=== PATIENT | male | born 1945 | race Caucasian/White ===

== ENCOUNTER 2024-12-17 09:20 | Emergency (ER) | payer OTHER, SELFPAY ==
--- NOTE | ~2024-12-17 | XR_ITS ---
CLINICAL HISTORY: falls, weakness Two views of the chest. COMPARISON: None FINDINGS: Normal heart and mediastinal contours. No consolidation. No pleural effusion or pneumothorax. Flowing marginal osteophytes present along the mid to lower thoracic spine. No fracture identified. IMPRESSION: 1. No acute cardiopulmonary abnormality. This document has been electronically signed by: Howard Mcdonald MD on 12/17/2024 17:25:54
--- NOTE | ~2024-12-17 | CT_ITS ---
CLINICAL HISTORY: fall, pain CT head without contrast. COMPARISON: None FINDINGS: The visualized paranasal sinuses are clear. The mastoid air cells are clear. No calvarial fracture. No calvarial fracture. Atherosclerotic intracranial vasculature. No evidence for mass or mass effect. No intracranial hemorrhage or abnormal extra-axial fluid collection. No CT evidence of acute infarct. The ventricles are proportional with the degree of moderate global cerebral volume loss without evidence of hydrocephalus. Basilar cisterns are patent. Posterior fossa appears unremarkable. IMPRESSION: 1. No acute intracranial findings. This document has been electronically signed by: Howard Mcdonald MD on 12/17/2024 17:15:41
--- NOTE | ~2024-12-17 | CT_ITS ---
CLINICAL HISTORY: fall, pain CT cervical spine without contrast. COMPARISON: None FINDINGS: Normal vertebral body alignment. Vertebral body heights are maintained. Skull base and intracranial structures appear normal. Surgical clips present along the thyroid bed. C2-C3: Fusion of the posterior elements. No significant neural foraminal narrowing. C3-C4: Anterior marginal osteophytes. Loss of disc space height. Posterior disc osteophyte complex. Uncovertebral joint hypertrophy. Mild left and npcflfwt-nk-oclmax right neural foraminal narrowing. C4-C5: Anterior marginal osteophytes. Loss of disc space height. Posterior disc osteophyte complex. Uncovertebral joint hypertrophy. Wqsbiudn-gn-uptnbo bilateral neural foraminal narrowing. C5-C6: Anterior marginal osteophytes. Loss of disc space height. Posterior disc osteophyte complex. Uncovertebral joint hypertrophy. Tpjkykbo-nz-vtpcqw left and moderate right neural foraminal narrowing. C6-C7: Anterior marginal osteophytes. Loss of disc space height. Posterior disc osteophyte complex. Uncovertebral joint hypertrophy. Severe left and mild right neural foraminal narrowing. IMPRESSION: 1. No evidence of acute injury to the cervical spine. 2. Advanced multilevel cervical spondylosis. This document has been electronically signed by: Howard Mcdonald MD on 12/17/2024 17:21:04
[2024-12-17 10:26] VITALS: BP 114/65; PULSE 88; RESP 16; TEMP 36.9; O2SAT 98; BMI 28.9
--- NOTE | 2024-12-17 10:32 | ECG_ITS ---
Test Reason : FALL Blood Pressure : */* mmHG Vent. Rate : 77 BPM Atrial Rate : 77 BPM P-R Int : 160 ms QRS Dur : 90 ms QT Int : 396 ms P-R-T Axes : 47 48 36 degrees QTcB Int : 448 ms Normal sinus rhythm Normal ECG When compared with ECG of 29-Aug-2011 18:32, No significant changes seen Referred By: Generic ED Physician Electronically Signed By: JENN BROOKS
[2024-12-17 11:06] LABS: MANUAL DIFF FLAG NO
[2024-12-17 11:07] LABS: Basophils Absolute Auto 0.1 X10*3/uL (0.0-0.2); Eosinophils Absolute Auto 0.1 X10*3/uL (0.0-0.4); Eosinophils Percent Auto 1.1 % (0-4); Hematocrit 42.7 % (42.0-52.0); Hemoglobin 14.3 g/dl (14.0-18.0); Imm Gran Abs Auto 0.03 X10*3/uL (0.00-0.03); Imm Gran Pct Auto 0.4 % (0.0-0.4); Lymphocytes Absolute Auto 1.5 X10*3/uL (1.2-4.9); Lymphocytes Percent Auto 18.6 % (20-40); Mean Corpuscular HGB Conc 33.5 g/dl (31.0-36.0); Mean Corpuscular Hemoglobin 30.4 pg (27.0-33.0); Mean Corpuscular Volume 90.7 fL (80.0-98.0); Monocytes Percent Auto 12.5 % (2-11); Neutrophils Absolute Auto 5.3 x10*3/uL (2.0-8.3); Neutrophils Percent Auto 66.4 % (45-73); Platelet Count 178 X10*3/uL (160-400); Red Blood Count 4.71 X10*6/uL (4.60-5.80); Red Cell Distribution Width 12.8 % (11.0-16.0); White Blood Count 7.9 X10*3/uL (4.8-10.8)
[2024-12-17 11:22] LABS: Alanine Aminotransferase 10 U/L (0-40); Alkaline Phosphatase 141 U/L (39-117); Anion Gap 12 (12-20); Aspartate Amino Transferase 18 U/L (5-37); Bilirubin Total 0.3 mg/dL (0.0-1.0); Blood Urea Nitrogen 15 mg/dL (9-16); Calcium 8.6 mg/dL (8.4-10.2); Carbon Dioxide 27 mmol/L (22-29); Chloride 106 mmol/L (96-108); Creatinine Clr Calc Pharmacy 76.9; Estimated Glomerular Filt Rate > 60; Glucose Random 97 mg/dL (60-115); Sodium 141 mmol/L (135-145); Total Protein 7.7 g/dL (6.5-8.0)
[2024-12-17 15:48] VITALS: BP 130/75; PULSE 88; RESP 16; TEMP 36.7; O2SAT 98
--- NOTE | 2024-12-17 16:13 | ED_ITS ---
HPI - General Adult General Chief complaint: Fall Stated complaint: falling Time Seen by Provider: 12/17/24 16:12 Source: patient and family (patient's ) Mode of arrival: ambulatory Limitations: no limitations History of Present Illness ED Provider: May Mckay PA-C HPI narrative: Patient is an 79 year old assigned male at with a history of dementia presenting to the emergency department today with continued weakness. Patient states that he has been somewhat more weak and has had 2 falls in the last 3 weeks. Patient's states 1 fall involved the stairs and the other was him sliding down his recliner. Patient denies any dizziness, lightheadedness, abdominal pain, nausea, vomiting, fever, chills, blurry vision, double vision, loss of vision, chest pain, difficulty breathing, shortness of breath, back pain, night sweats, pain with urination, increased urinary frequency, increased urinary urgency, blood in his urine or stool, syncope or a near syncopal episode, bowel incontinence, bladder incontinence, or any other complaints at this time. Onset (ago): week(s) (3) Relieving factors: none Exacerbating factors: none Associated symptoms: weakness Treatments prior to arrival: none Related Data Allergies Allergy/AdvReac Type Severity Reaction Status Date / Time nut - unspecified [nut] Allergy Intermediate HIVES Verified 12/17/24 10:28 onion [Onion] Allergy Unknown UNKNOWN Verified 12/17/24 10:28 Review of Systems 2 Constitutional: Constitutional: Reports no additional constitutional complaints, Denies chills, Denies fever(s), Denies night sweats and Reports weakness Eyes: Eyes: Reports no additional eye complaints, Denies blurry vision, Denies change in vision, Denies diplopia, Denies eye discharge, Denies loss of vision and Denies eye pain ENT: Denies dizziness Cardiovascular: Cardiovascular: Reports no additional cardiovascular complaints, Denies chest pain, Denies lightheadedness, Denies Loss of Consciousness and Denies dyspnea Respiratory: Respiratory: Reports no additional respiratory complaints and Denies dyspnea Gastrointestinal: Gastrointestinal: Reports no additional gastrointestinal complaints, Denies abdominal pain, Denies melena, Denies hematochezia, Denies change in bowel habits and Denies change in stool character Genitourinary: Genitourinary: Reports no additional male genitourinary complaints, Denies hematuria, Denies oliguria, Denies difficulty urinating, Denies dysuria, Denies urinary frequency, Denies urinary hesitancy, Denies urinary incontinence and Denies urinary urgency Musculoskeletal: Musculoskeletal: Reports no additional musculoskeletal complaints, Denies numbness and Denies tingling Neurologic: Denies dizziness, Denies loss of vision, Denies numbness, Denies tingling and Reports weakness Psychiatric: Psychiatric: Reports no additional psychiatric complaints Endocrine: Endocrine: Reports no additional endocrine complaints Hematologic/Lymphatic: Hematologic/Lymphatic: Reports no additional hematologic/lymphatic complaints Allergic/Immunologic: Allergic/Immunologic: Reports no additional allergic/immunologic complaints [facility] Past Medical History Attestation statement: The following information was validated with the patient. (all information validated with the patient's ) Source: old records reviewed, obtained from family (patient's provided additional history and confirmed the history provided by the patient.) and nursing notes reviewed Social History Social History Advance Directives: Yes Advance Directives Information Provided: Yes Advance Directives on File: No Physical Exam ED Vital Signs: Vital Signs - 24 hr 12/17/24 10:26 12/17/24 15:48 Temperature 98.5 F 98.1 F Pulse Rate 88 88 Respiratory Rate 16 16 Blood Pressure 114/65 130/75 Pulse Oximetry 98 98 Oxygen Delivery Method Room Air Room Air BMI result Body Mass Index 28.9 Const General: cooperative, no acute distress, alert and awake Nutritional Appearance: well nourished Orientation/consciousness: patient oriented x3 Limitations: no limitations [facility] Head: Yes normal to inspection and Yes atraumatic Ears: hearing grossly normal bilaterally and external ears normal General nose exam: Normal external nose present, no nasal discharge noted and no epistaxis Face and sinus: Yes normal facial exam, No abrasion and No laceration Mouth: Normal oral and palatal mucosa present, no drooling and no muffled voice Eyes General: appearance normal, both eyes and all related structures Periorbital: periorbital findings normal Eyelids: Yes eyelids normal Conjunctivae: conjunctivae normal Pupils: Equal, round and reactive pupils present EOM: EOMs intact bilaterally Neck Neck: Yes normal visual inspection, Yes full ROM and Yes no lymphadenopathy Chest Chest palpation & inspection: normal inspection of the chest Resp Effort & Inspection: normal respiratory effort and able to speak in complete sentences GI Inspection: Yes normal to inspection Neuro General: patient oriented x3, moves all extremities and CN's II-XI intact bilaterally Cranial nerves: Yes Equal, round and reactive pupils present Cognition (Neuro): normal cognition Extrem General: Yes normal to inspection, Yes full ROM and Yes capillary refill normal Psych Appearance: grossly normal Mental Status: mental status grossly normal Affect: normal affect Attitude: cooperative Thought process: Normal thought process present Thought content: Normal thought content present Insight: Good insight present (Psych) Medical Decision Making Medical Decision Making MDM Narrative: Patient is an 79 year old assigned male at with a history of dementia presenting to the emergency department today with continued weakness. Patient's physical exam was unremarkable. Patient's blood work was unremarkable. Patient's urine showed no acute process. Patient's EKG was unremarkable. Patient's chest x-ray, head CT, and c-spine CT showed no acute process. I explained my physical exam findings as well as all test results to the patient and the patient's . I answered all questions asked by the patient and the patient's . Patient and his stated that they would like to go home and do not want a physical therapy or case management evaluations at this time. I stressed the importance of the patient taking his medication as directed (either prescribed or as the over the counter packaging recommends). I stressed the importance of the patient following up with his primary care provider. I stressed the importance of the patient returning to the emergency department immediately if his symptoms were to worsen or if he were to develop any dizziness, shortness of breath, difficulty breathing, chest pain, blurry vision, loss of vision, nausea, vomiting, abdominal pain, fever, chills, back pain, or any other complaints. Patient and the patient's verbalized agreement and understanding with this treatment plan and discharge. Differential Diagnosis Differential Diagnoses: The differential diagnosis associated with the presentation includes Weakness Deconditioning Admission/Observation Consideration of admission/observation: Escalation of care including admission/observation considered Patient would have been admitted to the hospital had his work up had any findings where hospital admission was appropriate and his clinical presentation warranted hospital admission. Lab Data [facility] Lab Attestation statement: I reviewed the patient's lab results. My interpretation of these results are in the [facility] Rationale portion of this note. 12/17/24 11:00 12/17/24 11:00 Labs: Lab Results 12/17/24 12/17/24 Range/Units 11:00 16:21 WBC 7.9 (4.8-10.8) X10*3/uL RBC 4.71 (4.60-5.80) X10*6/uL Hgb 14.3 (14.0-18.0) g/dl Hct 42.7 (42.0-52.0) % MCV 90.7 (80.0-98.0) fL MCH 30.4 (27.0-33.0) pg MCHC 33.5 (31.0-36.0) g/dl RDW 12.8 (11.0-16.0) % Plt Count 178 (160-400) X10*3/uL MPV 9.0 L (9.4-12.4) fL Immature Gran % (Auto) 0.4 (0.0-0.4) % Neut % (Auto) 66.4 (45-73) % Lymph % (Auto) 18.6 L (20-40) % [place] % (Auto) 12.5 H (2-11) % Eos % (Auto) 1.1 (0-4) % Baso % (Auto) 1.0 (0-2) % Lymph # (Auto) 1.5 (1.2-4.9) X10*3/uL [place] # (Auto) 1.0 (0.1-1.2) X10*3/uL Eos # (Auto) 0.1 (0.0-0.4) X10*3/uL Baso # (Auto) 0.1 (0.0-0.2) X10*3/uL Abs Immat Gran (auto) 0.03 (0.00-0.03) X10*3/uL Absolute Neuts (auto) 5.3 (2.0-8.3) x10*3/uL Absolute Nucleated RBC 0.000 (0.0-0.012) X10*3/uL Nucleated RBC % (auto) 0.0 (0.0-0.2) /100WBC Sodium 141 (135-145) mmol/L Potassium 4.0 (3.3-5.1) mmol/L Chloride 106 (96-108) mmol/L Carbon Dioxide 27 (22-29) mmol/L Anion Gap 12 (12-20) BUN 15 (9-16) mg/dL Creatinine 0.87 (0.5-1.4) mg/dL Estim Creat Clear Calc 76.9 Estimated GFR > 60 Random Glucose 97 (60-115) mg/dL Calcium 8.6 (8.4-10.2) mg/dL Total Bilirubin 0.3 (0.0-1.0) mg/dL AST 18 (5-37) U/L ALT 10 (0-40) U/L Alkaline Phosphatase 141 H (39-117) U/L Total Protein 7.7 (6.5-8.0) g/dL Albumin 4.0 (3.5-5.0) g/dL Urine Color Yellow Urine Appearance Clear Urine pH 6.0 (5.0-9.0) Ur Specific [place] 1.010 (1.005-1.025) Urine Protein Negative (Neg-Trace) mg/dL Urine Glucose (UA) Negative (Negative) mg/dL Urine Ketones Negative (Negative) mg/dL Urine Blood Negative (Negative) Urine Nitrite Negative (Negative) Ur Leukocyte Esterase Negative (Negative) Independent Interpretation I performed an independent interpretation of an: EKG, Plain X-Ray and CT Scan Interpretation: My interpretation is in agreement with the radiologist's impression of these imaging studies. L CLINICAL HISTORY: falls, weakness Two views of the chest. COMPARISON: None FINDINGS: Normal heart and mediastinal contours. No consolidation. No pleural effusion or pneumothorax. Flowing marginal osteophytes present along the mid to lower thoracic spine. No fracture identified. IMPRESSION: 1. No acute cardiopulmonary abnormality. This document has been electronically signed by: Howard Mcdonald MD on 12/17/2024 17:25:54 Dictated By: Howard Mcdonald MD Signed By: Electronically signed by Howard Mcdonald MD 12/17/24 1727 Report Number: [id number]: Total DLP = 1214.00 mGy-cm CLINICAL HISTORY: fall, pain CT cervical spine without contrast. COMPARISON: None FINDINGS: Normal vertebral body alignment. Vertebral body heights are maintained. Skull base and intracranial structures appear normal. Surgical clips present along the thyroid bed. C2-C3: Fusion of the posterior elements. No significant neural foraminal narrowing. C3-C4: Anterior marginal osteophytes. Loss of disc space height. Posterior disc osteophyte complex. Uncovertebral joint hypertrophy. Mild left and sxghusek-le-tvdhwu right neural foraminal narrowing. C4-C5: Anterior marginal osteophytes. Loss of disc space height. Posterior disc osteophyte complex. Uncovertebral joint hypertrophy. Bdiykvju-jk-vcowqq bilateral neural foraminal narrowing. C5-C6: Anterior marginal osteophytes. Loss of disc space height. Posterior disc osteophyte complex. Uncovertebral joint hypertrophy. Copkzjmo-nt-oronsq left and moderate right neural foraminal narrowing. C6-C7: Anterior marginal osteophytes. Loss of disc space height. Posterior disc osteophyte complex. Uncovertebral joint hypertrophy. Severe left and mild right neural foraminal narrowing. IMPRESSION: 1. No evidence of acute injury to the cervical spine. 2. Advanced multilevel cervical spondylosis. This document has been electronically signed by: Howard Mcdonald MD on 12/17/2024 17:21:04 Dictated By: Howard Mcdonald MD Signed By: Electronically signed by Howard Mcdonald MD 12/17/24 1721 Report Number: [id number]: Total DLP = 0.00 mGy-cm CLINICAL HISTORY: fall, pain CT head without contrast. COMPARISON: None FINDINGS: The visualized paranasal sinuses are clear. The mastoid air cells are clear. No calvarial fracture. No calvarial fracture. Atherosclerotic intracranial vasculature. No evidence for mass or mass effect. No intracranial hemorrhage or abnormal extra-axial fluid collection. No CT evidence of acute infarct. The ventricles are proportional with the degree of moderate global cerebral volume loss without evidence of hydrocephalus. Basilar cisterns are patent. Posterior fossa appears unremarkable. IMPRESSION: 1. No acute intracranial findings. This document has been electronically signed by: Howard Mcdonald MD on 12/17/2024 17:15:41 Dictated By: Howard Mcdonald MD Signed By: Electronically signed by Howard Mcdonald MD 12/17/24 1716 Vent. Rate: 77 BPM Atrial Rate: 77 BPM P-R Int: 160 ms QRS Dur: 90 ms QT Int: 396 ms P-R-T Axes: 47 48 36 degrees QTcB Int: 448 ms Normal sinus rhythm Normal ECG When compared with ECG of 29-Aug-2011 18:32, No significant changes seen Electronically Signed By: MERRICK BROOKS Dictated By: Merrick Brooks MD Signed By: Electronically signed by Merrick Brooks MD 12/17/24 1227 Radiology Impression Discussion of test interpretation with radiology: I have reviewed the radiologist's reading. Independent Historian Clinical information obtained from an independent historian. History obtained from or confirmed by: Spouse (patient's provided additional history and confirmed the history provided.) Discharge Plan Discharge Clinical Impression: Weakness Patient Disposition: Home, Self-Care Instructions: Weakness (ED) Additional Instructions: Follow up with your primary care provider. Return to the emergency department immediately if your symptoms worsen or if you develop any dizziness, shortness of breath, difficulty breathing, chest pain, blurry vision, loss of vision, nausea, vomiting, abdominal pain, fever, chills, back pain, or any other complaints. Referrals: Orin Best MD [Primary Care Provider] - Print Language: [place]
[2024-12-17 16:42] LABS: Appearance Urine Clear; Color Urine Yellow; Glucose Urine UA Negative (Negative); Leukocyte Esterase Urine Negative (Negative); Nitrite Urine Negative (Negative); Urine Blood Negative (Negative); Urine Ketones Negative (Negative); Urine Protein Negative (Neg-Trace)
[2024-12-17 18:23] VITALS: BP 130/75; PULSE 88; RESP 16; TEMP 36.7; O2SAT 98
--- OUTSIDE RECORDS SUMMARY | 2024-12-17 18:27 | XMS_ITS ---
Author Name [facility] [place] [facility] [place] Address [address] [place] [address] Care Team Providers Care Dip Unit Operator Name Role Phone NAOMI TRAN Primary Care Provider Unavailabl e Insurance Providers: All historical and current Section Date Range: From patient's date of to the date document was created. This section includes the names of all active insurance providers for the patient. Insurance Provider Type of Coverage Plan Name Start of Policy Coverage End of Policy Coverage Group Number Member ID Insurance Provider's Telephone Number Policy Conte's Name Patient's Relationship to Policy Conte [facility] ([facility]) MEDICARE ADVANTAGE [facility] ([facility]) Oct 24, 2014 [id number] PATIENT Selected Encounter This section includes the information on record at [place] for the Encounter. Date/Time Encounter Type Encounter Description Reason Provider Source Jan 27, 2024 08:00 AM SPEECH/HEARING THERAPY SPEECH-LANGUAGE PATHOLOGY ICD-10-CM F01.B0 Vascular dementia, moderate, without beh/psych/mood /anx MIKE HUERTA Elly Encounter Template Text not used by [place] Assessments - Encounter Diagnoses This section includes the primary and secondary diagnoses documented for the Encounter. Date/Time Primary/Secondary Diagnosis Diagnosis Name Provider Source Jan 27, 2024 09:01 AM PRIMARY Vascular dementia, moderate, without beh/psych/mood/ anx MIKE HUERTA [facility] Plan of Treatment: Future Appointments (+ 6 months) and Future Tests (+/- 45 days) The Plan of Treatment section includes future care activities for the patient from all [place] treatmentfaatrium healthities. This section includes future appointments and future orders which are active, pending or scheduled. Future Appointments This section includes appointments that were scheduled to occur 6 months from the date of the Encounter, up to a maximum of 20 appointments. The data comes from all [place] treatment facilities. Appointment Date/Time Appointment Type Appointme nt Facility Name Feb 06, 2024 08:00 AM [facility] Feb 13, 2024 08:00 [facility] [place] [facility] Feb 21, 2024 08:30 AM [facility] [place] [facility] Apr 23, 2024 01:00 PM AMBULATORY - MEDICINE [facility] Lab Results: +/- 30 days of the encounter This section includes the Chemistry and Hematology Lab Results on record with [place] for the patient. Radiology Reports and Pathology Reports are provided separately, in subsequent sections. Lab Results This section contains the Chemistry/Hematology Results that were resulted 30 days before or 30 daysafter the date of the Encounter. Date/Time Source Result Type Result - Unit Interpretation Reference Range Comment Jan 16, 2024 08:11 AM [facility] CALCIUM Specimen Type: SERUM No comment entered. Ordering Provider: NAOMI TRAN Report Released Date/Time: Jan 13, 2024 03:46 PM Reporting Lab: [facility] [address] [address] Performing Lab: [facility] [address] [address] CALCIUM 8.3 mg/dL L 8.5-10.2 Jan 16, 2024 08:11 AM [facility] URIC ACID Specimen Type: SERUM No comment entered. Ordering Provider: NAOMI TRAN Report Released Date/Time: Jan 13, 2024 03:46 PM Reporting Lab: [address] [address] Performing Lab: [address] [address] URIC ACID 5.7 mg/dL 3.5-7.2 Jan 16, 2024 08:11 AM [facility] HEMOGLOBIN A1C PANEL Specimen Type: BLOOD Comment: Values obtained from A1C measurements can vary. For atypical A1C assays, a reported value of 7.0 could actually be between 6.72 and 7.28 if measured by a reference method. A reported value of 9.0 could actually be between 8.73 and 9.27. Ref: http://www.ngs p.org/CAPdata. asp Ordering Provider: NAOMI TRAN Report Released Date/Time: Jan 13, 2024 03:46 PM Reporting Lab: [address] [address] Performing Lab: [address] [address] HEMOGLOBIN A1C 5.5 4.0-5.6 Jan 16, 2024 08:11 AM [facility] TSH Specimen Type: SERUM No comment entered. Ordering Provider: NAOMI TRAN Report Released Date/Time: Jan 13, 2024 03:46 PM Reporting Lab: [address] [address] Performing Lab: [address] [address] TSH 1.39 u[IU]/mL 0.35-5.00 Jan 16, 2024 08:11 AM [facility] URINALYSIS Specimen Type: URINE Comment: If Glucose = >500 and Ketones are positive, please alert the Physician. Ordering Provider: NAOMI TRAN Report Released Date/Time: Jan 13, 2024 03:46 PM Reporting Lab: [address] [address] Performing Lab: [address] [address] UA COLOR Light-Yellow Yellow UA APPEARANCE Clear Clear UA GLUCOSE NEGATIVE mg/dL Negative UA KETONES NEGATIVE mg/dL Negative UA BLOOD NEGATIVE mg/dL Negative UA PROTEIN NEGATIVE mg/dL Negative UA NITRITE NEGATIVE mg/dL Negative UA BILIRUBIN NEGATIVE mg/dL Negative UA SPECIFIC GRAVITY 1.022 1.016-1.022 UA pH 7.0 5.0-9.0 UA UROBILINOGEN <2.0 mg/dL <2.0 UA LEUKOCYTE NEGATIVE Negative Jan 16, 2024 08:11 AM [facility] FERRITIN Specimen Type: SERUM No comment entered. Ordering Provider: NAOMI TRAN Report Released Date/Time: Jan 13, 2024 03:46 PM Reporting Lab: [address] [address] Performing Lab: [address] [address] FERRITIN 30 ng/mL 20-300 Jan 16, 2024 08:11 AM [facility] VITAMIN D (25-OH) Specimen Type: SERUM No comment entered. Ordering Provider: NAOMI TRAN Report Released Date/Time: Jan 13, 2024 03:46 PM Reporting Lab: [address] [address] Performing Lab: [address] [address] VITAMIN D (25-OH) 20 ng/mL 20-50 Jan 16, 2024 08:11 AM [facility] CBC AND DIFF (AUTO) Specimen Type: BLOOD No comment entered. Ordering Provider: NAOMI TRAN Report Released Date/Time: Jan 13, 2024 03:46 PM Reporting Lab: [address] [address] Performing Lab: [address] [address] WBC 7.52 10*3/uL 4.50-11.00 RBC 4.68 10*6/uL 4.23-5.66 HGB 14.2 g/dL 12.8-17 HCT 43.0 39.2-50.4 MCV 91.9 fL 82-99 MCHC 33.0 g/dL 30.8-35.1 PLT 200 10*3/uL 140-360 RDW-CV 12.8 12.0-16.0 [place], Abs 0.93 10*3/uL 0.30-1.10 MCH 30.3 pg 26.2-32.6 Neut % 59.3 43.7-75.8 Lymph % 25.5 14.0-42.3 [place] % 12.4 5.1-13.7 Eos % 1.3 0.4-6.8 Baso % 1.2 0.1-2.0 Neut, Abs 4.46 10*3/uL 2.20-7.60 Lymph, Abs 1.92 10*3/uL 1.00-3.20 Eos, Abs 0.10 10*3/uL 0.03-0.44 Baso, Abs 0.09 10*3/uL 0.01-0.13 Immature Gran % 0.3 0.0-0.7 Immature Gran, Abs 0.02 10*3/uL 0.00-0.06 Jan 16, 2024 08:11 AM [facility] LIPID PANEL FASTING Specimen Type: SERUM No comment entered. Ordering Provider: NAOMI TRAN Report Released Date/Time: Jan 13, 2024 03:46 PM Reporting Lab: [address] [address] Performing Lab: [address] [address] CHOLESTEROL 184 mg/dL TRIGLYCERIDE 129 mg/dL 0-150 LDL calculated 104 mg/dL 0-129 CHOL/HDL 3.4 HDL CHOLESTEROL 54 mg/dL 40-60 Jan 16, 2024 08:11 AM [facility] BASIC METABOLIC PANEL (fasting) Specime n Type: SERUM No comment entered. Ordering Provider: NAOMI TRAN Report Released Date/Time: Jan 13, 2024 03:46 PM Reporting Lab: [address] [address] Performing Lab: [address] [address] UREA NITROGEN 15 mg/dL 7-25 GLUCOSE 95 mg/dL 65-100 SODIUM 139 mmol/L 135-145 POTASSIUM 4.1 mmol/L 3.5-5.0 CHLORIDE 103 mmol/L 100-110 CO2 27 meq/L 20-30 CREATININE, Serum 0.86 mg/dL 0.50-1.40 eGFR(CKD-EPI 2020) 88 mL/min >60 Jan 16, 2024 08:11 AM [facility] LIVER FUNCTION Specimen Type: SERUM No comment entered. Ordering Provider: NAOMI TRAN Report Released Date/Time: Jan 13, 2024 03:46 PM Reporting Lab: [facility] [address] [address] Performing Lab: [facility] [address] [address] PROTEIN,TOTAL 6.9 g/dL 6.0-8.3 ALBUMIN 3.7 g/dL 3.5-5.0 ALKALINE PHOSPHATASE 70 U/L 40-150 AST 12 U/L 5-34 ALT 11 U/L BILIRUBIN, TOTAL 0.5 mg/dL 0.2-1.2 Encounter Notes: All associated encounter notes This section contains the clinical notes associated to the Encounter. Date/Time Encounter Note(s) Provider Source Jan 27, 2024 08:24 AM SPEECH PATHOLOGY N OTE: LOCAL TITLE: SPEECH PATHOLOGY PROGRESS NOTE STANDARD TITLE: SPEECH PATHOLOGY NOTE DATE OF NOTE: JAN 27, 2024@08:24 ENTRY DATE: JAN 27, 2024@08:24:31 AUTHOR: MIKE HUERTA EXP COSIGNER: URGENCY: STATUS: COMPLETED S: Pt. is seen F2F today for a diagnostic speech/language therapy. Active problems - Computerized Problem List is the source for the followin. Vascular dementia without behavioral disturbance 2. Irritable bowel syndrome 3. Cataract 4. Screening for malignant neoplasm of colon done 5. New daily persistent headache 6. History of vaccination 7. Shoulder joint pain 8. Allergy 9. Chest pain 10. Concussion 11. Chronic ethmoidal sinusitis 12. PCP: Luli Mendoza [facility] 13. Hypertension (SNOMED CT [id number]) 14. Other and unspecified noninfectious gastroenteritis and colitis 15. Hypothyroidism 16. Personal History of Colonic Polyps Progress notes reviewed Neuropsych testing report was reviewed Encounter time - 60 minutes O: The following was addressed during this encounter: Test of Adolescent/Adult Word Finding, Second Edition (TAWF-2) which is a norm-referenced, single-word expressive language test expressly designed to assess the word-finding ability of adolescents and adults was continued. A: Bandera presents with cognitive communication deficits characterized by word finding challenges and short term recall difficulties. P: follow up 1x/week for 2 weeks /guevara/ MIKE HUERTA M.S.,[facility] MACHINE OPERATOR SPEECH-LANGUAGE PATHOLOGIST Signed: 01/30/2024 19:09 MIKE HUERTA [facility]
--- OUTSIDE RECORDS SUMMARY | 2024-12-17 18:27 | XMS_ITS | Encounter Summary ---
Author Name [facility] Organization [facility] Address [address] [place] [id number] Care Team Providers Care Electronic Train Control Technician Name Role Phone NAOMI TRAN Primary Care [...] Name Patient's Relationship to Policy [facility] ([facility]) MEDICARE ADVANTAGE [facility] ([facility]) Oct 24, 2014 [id number] PATIENT Selected Encounter This section includes the information on record at ID for the Encounter. Date/Time Encounter Type Encounter Description Reason Provider Source Jan 23, 2024 09:00 AM OFFICE O/P EST MOD 30 MIN PRIMARY CARE/MEDICINE ICD-10-CM F01.B0 Vascular dementia, moderate, without beh/psych/mood/ anx NAOMI TRAN Elly Encounter Template Text not used by ID Assessments - Encounter Diagnoses This section includes the primary and secondary diagnoses documented for the Encounter. Date/Time Primary/Secondary Diagnosis Diagnosis Name Provider Source Jan 23, 2024 09:15 AM PRIMARY Vascular dementia, moderate, without beh/psych/mood/anx NAOMI TRAN Jan 23, 2024 09:15 AM SECONDARY Essential (primary) hypertension NAOMI TRAN Jan 23, 2024 09:15 AM SECONDARY Hypothyroidism, unspecified NAOMI TRAN Plan of Treatment: Future Appointments (+ 6 months) and Future Tests (+/- 45 days) The Plan of Treatment section includes future care activities for the patient from all ID treatmentfacilities. This section includes future appointments and future orders which are active, pending or scheduled. Future Appointments This section includes appointments that were scheduled to occur 6 months from the date of the Encounter, up to a maximum of 20 appointments. The data comes from all ID treatment facilities. Appointment Date/Time Appointment Type Appointme nt Facility Name Jan 27, 2024 08:00 AM [facility] [place] [facility] Feb 06, 2024 08:00 AM [facility] [place] [facility] Feb 13, 2024 08:00 AM [facility] [place] [facility] Feb 21, 2024 08:30 AM AMBULATORY - REHAB MEDICIN E [facility] [place] [facility] Apr 23, 2024 01:00 PM AMBULATORY - MEDICINE [facility] Lab Results: +/- 30 days of the encounter This section includes the Chemistry and Hematology Lab Results on record with ID for the patient. Radiology Reports and Pathology Reports are provided separately, in subsequent sections. Lab Results This section contains the Chemistry/Hematology Results that were resulted 30 days before or 30 daysafter the date of the Encounter. Date/Time Source Result Type Result - Unit Interpretation Reference Range Comment Jan 16, 2024 08:11 AM [place] CALCIUM Specimen Type: SERUM No comment entered. Ordering Provider: NAOMI TRAN Report Released Date/Time: Jan 13, 2024 03:46 PM Reporting Lab: [facility] [address] [facility] [address] Performing Lab: [address] [address] CALCIUM 8.3 mg/dL L 8.5-10.2 Jan 16, 2024 08:11 AM [place] URIC ACID Specimen Type: SERUM No comment entered. Ordering Provider: NAOMI TRAN Report Released Date/Time: Jan 13, 2024 03:46 PM Reporting Lab: [address] [address] Performing Lab: [address] [address] URIC ACID 5.7 mg/dL 3.5-7.2 Jan 16, 2024 08:11 AM [place] HEMOGLOBIN A1C PANEL Specimen Type: BLOOD Comment: [...] Jan 13, 2024 03:46 PM Reporting Lab: [address] [address] Performing Lab: [address] [address] HEMOGLOBIN A1C 5.5 4.0-5.6 Jan 16, 2024 08:11 AM [place] URINALYSIS Specimen Type: URINE Comment: If Glucose = >500 and Ketones are positive, please alert the Physician. Ordering Provider: NAOMI TRAN Report Released Date/Time: Jan 13, 2024 03:46 PM Reporting Lab: [address] [address] Performing Lab: [address] [address] UA COLOR Light-Yellow Yellow UA APPEARANCE Clear Clear UA GLUCOSE NEGATIVE mg/dL Negative UA KETONES NEGATIVE mg/dL Negative UA BLOOD NEGATIVE mg/dL Negative UA PROTEIN NEGATIVE mg/dL Negative UA NITRITE NEGATIVE mg/dL Negative UA BILIRUBIN NEGATIVE mg/dL Negative UA SPECIFIC GRAVITY 1.022 1.016-1.022 UA pH 7.0 5.0-9.0 UA UROBILINOGEN <2.0 mg/dL <2.0 UA LEUKOCYTE NEGATIVE Negative Jan 16, 2024 08:11 AM [place] TSH Specimen Type: SERUM No comment entered. Ordering Provider: NAOMI TRAN Report Released Date/Time: Jan 13, 2024 03:46 PM Reporting [facility] [address] [address] Performing Lab: [address] [address] TSH 1.39 u[IU]/mL 0.35-5.00 Jan 16, 2024 08:11 AM [place] FERRITIN Specimen Type: SERUM No comment entered. Ordering Provider: NAOMI TRAN Report Released Date/Time: Jan 13, 2024 03:46 PM Reporting Lab: [address] [address] Performing Lab: [address] [address] FERRITIN 30 ng/mL 20-300 Jan 16, 2024 08:11 AM [place] CBC AND DIFF (AUTO) Specimen Type: BLOOD No comment entered. Ordering Provider: NAOMI TRAN Report Released Date/Time: Jan 13, 2024 03:46 PM Reporting Lab: [address] [address] Performing Lab: [address] [address] WBC 7.52 10*3/uL 4.50-11.00 RBC 4.68 10*6/uL 4.23-5.66 HGB 14.2 g/dL 12.8-17 HCT 43.0 39.2-50.4 MCV 91.9 fL 82-99 MCHC 33.0 g/dL 30.8-35.1 PLT 200 10*3/uL 140-360 RDW-CV 12.8 12.0-16.0 [place], Abs 0.93 10*3/uL 0.30-1.10 MCH 30.3 pg 26.2-32.6 Neut % 59.3 43.7-75.8 Lymph % 25.5 14.0-42.3 [place] % 12.4 5.1-13.7 Eos % 1.3 0.4-6.8 Baso % 1.2 0.1-2.0 Neut, Abs 4.46 10*3/uL 2.20-7.60 Lymph, Abs 1.92 10*3/uL 1.00-3.20 Eos, Abs 0.10 10*3/uL 0.03-0.44 Baso, Abs 0.09 10*3/uL 0.01-0.13 Immature Gran % 0.3 0.0-0.7 Immature Gran, Abs 0.02 10*3/uL 0.00-0.06 Jan 16, 2024 08:11 AM [place] VITAMIN D (25-OH) Specimen Type: SERUM No comment entered. Ordering Provider: NAOMI TRAN Report Released Date/Time: Jan 13, 2024 03:46 PM Reporting Lab: [address] [address] Performing Lab: [address] [address] VITAMIN D (25-OH) 20 ng/mL 20-50 Jan 16, 2024 08:11 AM [place] BASIC METABOLIC PANEL (fasting) Specime n Type: SERUM No comment entered. Ordering Provider: NAOMI TRAN Report Released Date/Time: Jan 13, 2024 03:46 PM Reporting Lab: [address] [address] Performing Lab: [address] [address] UREA NITROGEN 15 mg/dL 7-25 GLUCOSE 95 mg/dL 65-100 SODIUM 139 mmol/L 135-145 POTASSIUM 4.1 mmol/L 3.5-5.0 CHLORIDE 103 mmol/L 100-110 CO2 27 meq/L 20-30 CREATININE, Serum 0.86 mg/dL 0.50-1.40 eGFR(CKD-EPI 2020) 88 mL/min >60 Jan 16, 2024 08:11 AM [place] LIVER FUNCTION Specimen Type: SERUM No comment entered. Ordering Provider: NAOMI TRAN Report Released Date/Time: Jan 13, 2024 03:46 PM Reporting [facility]: [facility] [address] [address] Performing Lab: [address] [address] PROTEIN,TOTAL 6.9 g/dL 6.0-8.3 ALBUMIN 3.7 g/dL 3.5-5.0 ALKALINE PHOSPHATASE 70 U/L 40-150 AST 12 U/L 5-34 ALT 11 U/L BILIRUBIN, TOTAL 0.5 mg/dL 0.2-1.2 Jan 16, 2024 08:11 AM [place] LIPID PANEL FASTING Specimen Type: SERUM No comment entered. Ordering Provider: NAOMI TRAN Report Released Date/Time: Jan 13, 2024 03:46 PM Reporting Lab: [facility] [address] [facility] [address] Performing Lab: [facility] [address] [facility] [address] CHOLESTEROL 184 mg/dL TRIGLYCERIDE 129 mg/dL 0-150 LDL calculated 104 mg/dL 0-129 CHOL/HDL 3.4 HDL CHOLESTEROL 54 mg/dL 40-60 Vital Signs: All taken on the encounter date This section contains inpatient and outpatient Vital Signs collected on the date of the Encounter. Date/Time Temperature Pulse Blood Pressure Respiratory Rate SP02 Pain Height Weight Body Mass Index Source Jan 23, 2024 08:55 AM 97.5 86 109/67 97 191.8 28 [place] Social History: Smoking Status (Most current) and Tobacco Use (All prior to encounter date) This section includes the most current, and the historical, smoking and tobacco- related health factors from the ID facility where the Encounter took place. Current Smoking Status This section includes the most current smoking, or tobacco-related health factor, from the ID facility where the Encounter took place. Date/Time Current Smoking Status Comment [place] [facility] May 12, 2023 10:00 AM [facility]-TOBACCO FORMER USER [place] Tobacco Use History This section includes a history of the smoking, or tobacco-related health factors, that were collected on or before the date of the Encounter. The data comes from the ID facility where the Encounter took place. Date/Time Smoking Status/Tobacco Use Comment [facility] May 12, 2023 10:00 AM VA-TOBACCO QUIT 15 YRS OR MORE [place] Jun 03, 2022 02:00 PM VA-TOBACCO FORMER USER [place] Jun 03, 2022 02:00 PM VA-TOBACCO QUIT 15 YRS OR MORE [place] Apr 15, 2021 10:00 AM VA-TOBACCO FORMER USER [place] Apr 15, 2021 10:00 AM ID-TOBACCO QUIT 15 YRS OR MORE [place] Feb 19, 2020 01:24 PM VA-TOBACCO FORMER USER [place] Feb 19, 2020 01:24 PM VA-TOBACCO QUIT 15 YRS OR MORE [place] Feb 01, 2019 11:11 AM VA-TOBACCO FORMER USER [place] Feb 01, 2019 11:11 AM VA-TOBACCO QUIT 15 YRS OR MORE [place] Jan 17, 2018 09:03 AM QUIT TOBACCO USE > 7 YEARS AGO stopped smoking 1970 [place] Nov 16, 2016 08:51 AM QUIT TOBACCO USE > 7 YEARS AGO stopped smoking in 1969 [place] Oct 28, 2015 03:03 PM QUIT TOBACCO USE > 7 YEARS AGO [place] Oct 15, 2011 08:40 AM QUIT TOBACCO USE > 7 YEARS AGO Pt. quit smoking 15 years ago. [place] Encounter Notes: All associated encounter notes This section contains the clinical notes associated to the Encounter. Date/Time Encounter Note(s) Provider Source Jan 23, 2024 09:00 AM PHYSICIAN ASSISTRAHUL T NOTE: LOCAL TITLE: PA NOTE STANDARD TITLE: PHYSICIAN UR COORDINATOR NOTE DATE OF NOTE: JAN 23, 2024@09:00 ENTRY DATE: JAN 23, 2024@09:00:33 AUTHOR: NAOMI TRAN EXP COSIGNER: URGENCY: STATUS: COMPLETED S - routine re-eval O - coop A&Ox3 NAD W-N/H/D HEENT: benign NECK: supple mobile no bruits not tender and no adeno LUNGS: resp full reg unlabored; CTA b/l COR: RRR, no M ABD: soft, not tender no mass/megaly EXT: no LLE LABS: reviewed w/ pt A/P - 1) HTN - BP 110/68; HR 86 2) Renals Intact - eGFR 88 in JAN 14 3) C/V Stable - never SC 4) Neuro Intact - never CVA/TIA 5) But, Has Cognitive Decline c/w Age Vascu Dementia Neuro-Psych Note is in CPRS Dated JAN 14 6) Lipid Profile WNL 7) Hypothyroidism - TSH 1.39 in JAN 14 - cont Synthroid 8) CBBC WNL - no Anemia RTC SEP 16 - fasts labs before Medication Reconciliation: Outpatient: Has the patient been taking medications as documented in the EMLR? YES: The patient has been taking medications as documented in the EMLR. Essential Medication List for Review used to complete this medication reconciliation. INCLUDED IN THIS LIST: Alphabetical list of active outpatient prescriptions dispensed from this VA (local) and dispensed from another VA or DoD facility (remote) as well as inpatient orders (local, pending and active), local clinic medications, locally documented non-VA medications, and local prescriptions that have or been discontinued in the past 90 days. - All changes in medications, including all non-VA/Herbal/OTC medications were entered into CPRS. Changes: nt - If there were any medications the patient should no longer take, they were discontinued. - The patient/caregiver was instructed to update this list, discard old lists, and take this list to the next appointment, whether with a VA or non-VA provider. /guevara/ NAOMI TRAN PA-C STAFF PHYSICIAN UR COORDINATOR Signed: 01/23/2024 09:16 NAOMI TRAN
--- OUTSIDE RECORDS SUMMARY | 2024-12-17 18:27 | XMS_ITS ---
Author Name [facility] [place] [facility] [place] Address [address] [place] [address] Care Team Providers Care Asphalt Paving Superintendent Name Role Phone NAOMI TRAN Primary Care [...] Conte's Name Patient's Relationship to Policy Conte [facility] ([facility]) MEDICARE ADVANTAGE [facility] ([facility]) Oct 24, 2014 [id number] PATIENT Selected Encounter This section includes the information on record at [place] for the Encounter. Date/Time Encounter Type Encounter Description Reason Provider Source Jan 13, 2024 09:00 AM COGNITIVE TEST BY [facility] SPEECH-LANGUAGE PATHOLOGY ICD-10-CM F01.B0 Vascular dementia, moderate, without beh/psych/mood /anx MIKE HUERTA Elly Encounter Template Text not used by [facility] Assessments - Encounter Diagnoses This section includes the primary and secondary diagnoses documented for the Encounter. Date/Time Primary/Secondary Diagnosis Diagnosis Name Provider Source Jan 16, 2024 05:56 PM PRIMARY Vascular dementia, moderate, without beh/psych/mood/ anx MIKE [facility]A [facility] Plan of Treatment: Future Appointments (+ 6 months) and Future Tests (+/- 45 days) The Plan of Treatment section includes future care activities for the patient from all [place] [facility] This section includes future appointments and future orders which are active, pending or scheduled. Future Appointments This section includes appointments that were scheduled to occur 6 months from the date of the Encounter, up to a maximum of 20 appointments. The data comes from all [place] treatment facilities. Appointment Date/Time Appointment Type Appointme nt Facility Name Jan 23, 2024 09:00 AM [facility] Jan 27, 2024 08:00 AM [facility] Feb 06, 2024 08:00 AM [facility] Feb 13, 2024 08:00 AM [facility] Feb 21, 2024 08:30 AM [facility] Apr 23, 2024 01:00 PM [facility] Lab Results: +/- 30 days of the encounter This section includes the Chemistry and Hematology Lab Results on record with [place] for the patient. Radiology Reports and Pathology Reports are provided separately, in subsequent sections. Lab Results This section contains the Chemistry/Hematology Results that were resulted 30 days before or 30 daysafter the date of the Encounter. Date/Time Source Result Type Result - Unit Interpretation Reference Range Comment Jan 16, 2024 08:11 AM [place] CALCIUM Specimen Type: SERUM No comment entered. Ordering Provider: NAOMI TRAN Report Released Date/Time: Jan 13, 2024 03:46 PM Reporting Lab: [address] [address] Performing Lab: [address] [address] CALCIUM 8.3 mg/dL L 8.5-10.2 Jan 16, 2024 08:11 AM [facility] URIC ACID Specimen Type: SERUM No comment entered. Ordering Provider: NAOMI TRAN Report Released Date/Time: Jan 13, 2024 03:46 PM Reporting Lab: [address] [address] Performing Lab: [address] [address] URIC ACID 5.7 mg/dL 3.5-7.2 Jan 16, 2024 08:11 AM [place] HEMOGLOBIN A1C PANEL Specimen Type: BLOOD Comment: [...] Jan 13, 2024 03:46 PM Reporting Lab: [address] [address] Performing Lab: [address] [address] HEMOGLOBIN A1C 5.5 4.0-5.6 Jan 16, 2024 08:11 AM [facility] URINALYSIS Specimen Type: URINE Comment: If Glucose = >500 and Ketones are positive, please alert the Physician. Ordering Provider: NAOMI TRAN Report Released Date/Time: Jan 13, 2024 03:46 PM Reporting Lab: [address] [address] Performing Lab: [address] [address] UA COLOR Light-Yellow Yellow UA APPEARANCE Clear Clear UA GLUCOSE NEGATIVE mg/dL Negative UA KETONES NEGATIVE mg/dL Negative UA BLOOD NEGATIVE mg/dL Negative UA PROTEIN NEGATIVE mg/dL Negative UA NITRITE NEGATIVE mg/dL Negative UA BILIRUBIN NEGATIVE mg/dL Negative UA SPECIFIC GRAVITY 1.022 1.016-1.022 UA pH 7.0 5.0-9.0 UA UROBILINOGEN <2.0 mg/dL <2.0 UA LEUKOCYTE NEGATIVE Negative Jan 16, 2024 08:11 AM [place] TSH Specimen Type: SERUM No comment entered. Ordering Provider: NAOMI TRAN Report Released Date/Time: Jan 13, 2024 03:46 PM Reporting Lab: [facility] [address] [address] Performing Lab: [facility] [address] [address] TSH 1.39 u[IU]/mL 0.35-5.00 Jan 16, 2024 08:11 AM [facility] VITAMIN D (25-OH) Specimen Type: SERUM No comment entered. Ordering Provider: NAOMI TRAN Report Released Date/Time: Jan 13, 2024 03:46 PM Reporting Lab: [facility] [address] [address] Performing Lab: [address] [address] VITAMIN D (25-OH) 20 ng/mL 20-50 Jan 16, 2024 08:11 AM [place] FERRITIN Specimen Type: SERUM No comment entered. Ordering Provider: NAOMI TRAN Report Released Date/Time: Jan 13, 2024 03:46 PM Reporting Lab: [facility] [address] [address] Performing Lab: [address] [address] FERRITIN 30 ng/mL 20-300 Jan 16, 2024 08:11 AM [place] CBC AND DIFF (AUTO) Specimen Type: BLOOD No comment entered. Ordering Provider: NAOMI TRAN Report Released Date/Time: Jan 13, 2024 03:46 PM Reporting Lab: [facility] [address] [address] Performing Lab: [address] [address] WBC 7.52 10*3/uL 4.50-11.00 RBC 4.68 10*6/uL 4.23-5.66 HGB 14.2 g/dL 12.8-17 HCT 43.0 39.2-50.4 MCV 91.9 fL 82-99 MCHC 33.0 g/dL 30.8-35.1 PLT 200 10*3/uL 140-360 RDW-CV 12.8 12.0-16.0 [place], Abs 0.93 10*3/uL 0.30-1.10 MCH 30.3 pg 26.2-32.6 Neut % 59.3 43.7-75.8 Lymph % 25.5 14.0-42.3 [place] % 12.4 5.1-13.7 Eos % 1.3 0.4-6.8 Baso % 1.2 0.1-2.0 Neut, Abs 4.46 10*3/uL 2.20-7.60 Lymph, Abs 1.92 10*3/uL 1.00-3.20 Eos, Abs 0.10 10*3/uL 0.03-0.44 Baso, Abs 0.09 10*3/uL 0.01-0.13 Immature Gran % 0.3 0.0-0.7 Immature Gran, Abs 0.02 10*3/uL 0.00-0.06 Jan 16, 2024 08:11 AM [place] BASIC METABOLIC PANEL (fasting) Specime n Type: SERUM No comment entered. Ordering Provider: NOAMI TRAN Report Released Date/Time: Jan 13, 2024 03:46 PM Reporting Lab: [address] [address] Performing Lab: [address] [address] UREA NITROGEN 15 mg/dL 7-25 GLUCOSE 95 mg/dL 65-100 SODIUM 139 mmol/L 135-145 POTASSIUM 4.1 mmol/L 3.5-5.0 CHLORIDE 103 mmol/L 100-110 CO2 27 meq/L 20-30 CREATININE, Serum 0.86 mg/dL 0.50-1.40 eGFR(CKD-EPI 2020) 88 mL/min >60 Jan 16, 2024 08:11 AM [place] LIPID PANEL FASTING Specimen Type: SERUM No comment entered. Ordering Provider: NAOMI TRAN Report Released Date/Time: Jan 13, 2024 03:46 PM Reporting Lab: [address] [address] Performing Lab: [address] [address] CHOLESTEROL 184 mg/dL TRIGLYCERIDE 129 mg/dL 0-150 LDL calculated 104 mg/dL 0-129 CHOL/HDL 3.4 HDL CHOLESTEROL 54 mg/dL 40-60 Jan 16, 2024 08:11 AM [place] LIVER FUNCTION Specimen Type: SERUM No comment entered. Ordering Provider: NAOMI TRAN Report Released Date/Time: Jan 13, 2024 03:46 PM Reporting Lab: [facility] [address] [address] Performing Lab: [facility] [address] [address] PROTEIN,TOTAL 6.9 g/dL 6.0-8.3 ALBUMIN 3.7 g/dL 3.5-5.0 ALKALINE PHOSPHATASE 70 U/L 40-150 AST 12 U/L 5-34 ALT 11 U/L BILIRUBIN, TOTAL 0.5 mg/dL 0.2-1.2 Encounter Notes: All associated encounter notes This section contains the clinical notes associated to the Encounter. Date/Time Encounter Note(s) Provider Source Jan 23, 2024 05:37 PM ADDENDUM: LOCAL TITLE: Addendum STANDARD TITLE: ADDENDUM DATE OF NOTE: JAN 23, 2024@17:37 ENTRY DATE: JAN 23, 2024@17:37:53 AUTHOR: MIKE HUERTA COSIGNER: NAOIM TRAN URGENCY: STATUS: COMPLETED S: Pt. is seen F2F today for a speech/language evaluation. [place] is a 78- year-old male referred after a neuropsych eval with findings consistent with vascular dementia. He has persistent word finding deficits. Active problems - Computerized Problem List is the source for the followin. Vascular dementia without behavioral disturbance 2. Irritable bowel syndrome 3. Cataract 4. Screening for malignant neoplasm of colon done 5. New daily persistent headache 6. History of vaccination 7. Shoulder joint pain 8. Allergy 9. Chest pain 10. Concussion 11. Chronic ethmoidal sinusitis 12. PCP: [facility] 13. Hypertension (SNOMED CT [id number]) 14. Other and unspecified noninfectious gastroenteritis and colitis 15. Hypothyroidism 16. Personal History of Colonic Polyps Progress notes reviewed Neuropsych testing report was reviewed Encounter time - 60 minutes O: The following was addressed during this encounter: //PATIENT'S PERCEPTION OF THE PROBLEM - Pt has limited insight into his current challenges and feels that some of the concerns regarding his memory and word finding challenges are being exaggerated . Test of Adolescent/Adult Word Finding, Second Edition (TAWF-2) which is a norm-referenced, single-word expressive language test expressly designed to assess the word-finding ability of adolescents and adults was begun. A: [place] presents with cognitive communication deficits characterized by word finding challenges and short term recall difficulties. P: RTC 01/27/24 @ 0800 to complete TAWF /guevara/ MIKE HUERTA M.S.,PAMELA-ORTHOPEDIC PHYSICIAN SPEECH-LANGUAGE PATHOLOGIST Signed: 01/23/2024 17:39 /guevara/ NAOMI TRAN PA-C STAFF PHYSICIAN CERTIFIED MEDICAL CODER Cosigned: 01/24/2024 08:12 Receipt Acknowledged By: 01/26/2024 07:53 /guevara/ WAYNE ALFORD [facility] CUSTOMER RELATIONS ASSISTANT --- Original Document --- 01/13/24 CONSULT REPORT/SPEECH/SWALLOWING: encounter completed detailed note to follow /stephon HUERTA M.S., CCC-ORTHOPEDIC PHYSICIAN SPEECH-LANGUAGE PATHOLOGIST Signed: 01/22/2024 11:39 /guevara/ NAOMI TRAN PA-C STAFF PHYSICIAN CERTIFIED MEDICAL CODER Cosigned: 01/23/2024 08:11 MIKE HUERTA [facility] [place] [facility] Jan 13, 2024 09:53 AM SPEECH PATHOLOGY C ONSULT: LOCAL TITLE: CONSULT REPORT/SPEECH/SWALLOWING STANDARD TITLE: SPEECH PATHOLOGY CONSULT DATE OF NOTE: JAN 13, 2024@09:53 ENTRY DATE: JAN 13, 2024@09:53:41 AUTHOR: MIKE HUERTA COSIGNER: NAOMI TRAN URGENCY: STATUS: COMPLETED CONSULT REPORT/SPEECH/SWALLOWING Has ADDENDA encounter completed detailed note to follow /stephon HUERTA M.S., CCC-ORTHOPEDIC PHYSICIAN SPEECH-LANGUAGE PATHOLOGIST Signed: 01/22/2024 11:39 /stephon TRAN PA-C STAFF PHYSICIAN CERTIFIED MEDICAL CODER Cosigned: 01/23/2024 08:11 01/23/2024 ADDENDUM STATUS: COMPLETED S: Pt. is seen F2F today for a speech/language evaluation. is a 78- year-old male referred after a neuropsych eval with findings consistent with vascular dementia. He has persistent word finding deficits. Active problems - Computerized Problem List is the source for the followin. Vascular dementia without behavioral disturbance 2. Irritable bowel syndrome 3. Cataract 4. Screening for malignant neoplasm of colon done 5. New daily persistent headache 6. History of vaccination 7. Shoulder joint pain 8. Allergy 9. Chest pain 10. Concussion 11. Chronic ethmoidal sinusitis 12. PCP: [facility] 13. Hypertension (SNOMED CT 73194472) 14. Other and unspecified noninfectious gastroenteritis and colitis 15. Hypothyroidism 16. Personal History of Colonic Polyps Progress notes reviewed Neuropsych testing report was reviewed Encounter time - 60 minutes O: The following was addressed during this encounter: //PATIENT'S PERCEPTION OF THE PROBLEM - Pt has limited insight into his current challenges and feels that some of the concerns regarding his memory and word finding challenges are being exaggerated . Test of Adolescent/Adult Word Finding, Second Edition (TAWF-2) which is a norm-referenced, single-word expressive language test expressly designed to assess the word-finding ability of adolescents and adults was begun. A: [place] presents with cognitive communication deficits characterized by word finding challenges and short term recall difficulties. P: RTC 01/27/24 @ 0800 to complete TAWF /guevara/ MIKE HUERTA M.S.,CCC-ORTHOPEDIC PHYSICIAN SPEECH-LANGUAGE PATHOLOGIST Signed: 01/23/2024 17:39 /guevara/ NAOMI TRAN PA-C STAFF PHYSICIAN CERTIFIED MEDICAL CODER Cosigned: 01/24/2024 08:12 Receipt Acknowledged By: * AWAITING SIGNATURE * WAYNE ALFORD [facility]
--- OUTSIDE RECORDS SUMMARY | 2024-12-17 18:27 | XMS_ITS | Encounter Summary ---
Author Name [facility] [place] Address [address] [place] [id number] Care Team Providers Care Showroom Salesperson Name Role Phone NAOMI TRAN Primary Care [...] Name Patient's Relationship to Policy Conte [facility] ([facility]) MEDICARE ADVANTAGE [facility] ([facility]) Oct 24, 2014 [id number] PATIENT Selected Encounter This section includes the information on record at [place] for the Encounter. 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 Date/Time Primary/Secondary Diagnosis Diagnosis Name Provider Source Apr 23, 2024 01:23 PM PRIMARY Functional diarrhea NAOMI TRAN Plan of Treatment: Future Appointments (+ 6 months) and Future Tests (+/- 45 days) The Plan of Treatment section includes future care activities for the patient [facility] [place] [facility] This section includes future appointments and future orders which are active, pending or scheduled. Future Appointments This section includes appointments that were scheduled to occur 6 months from the date of the Encounter, up to a maximum of 20 appointments. The data comes from all [place] treatment facilities. Appointment Date/Time Appointment Type Appointme nt Facility Name Aug 24, 2024 09:00 AM AMBULATORY - MEDICINE [facility] Oct 18, 2024 02:00 PM AMBULATORY - MEDICINE [facility] Lab Results: +/- 30 days of the encounter This section includes the Chemistry and Hematology Lab Results on record with [place] for the patient. Radiology Reports and Pathology Reports are provided separately, in subsequent sections. Lab Results This section contains the Chemistry/Hematology Results that were resulted 30 days before or 30 daysafter the date of the Encounter. Date/Time Source Result Type Result - Unit Interpretation Reference Range Comment Apr 23, 2024 01:22 PM [facility] BASIC METABOLIC PANEL (non-fasting) Spe cimen Type: SERUM No comment entered. Ordering Provider: NAOMI TRAN Report Released Date/Time: Apr 23, 2024 01:16 PM Reporting Lab: [address] [address] Performing Lab: [address] [address] UREA NITROGEN 19 mg/dL 7-25 GLUCOSE 80 mg/dL 65-100 SODIUM 141 mmol/L 135-145 POTASSIUM 3.8 mmol/L 3.5-5.0 CHLORIDE 106 mmol/L 100-110 CO2 24 meq/L 20-30 CREATININE, Serum 0.94 mg/dL 0.50-1.40 eGFR(CKD-EPI 2020) 82 mL/min >60 Apr 23, 2024 01:22 PM [place] CBC AND DIFF (AUTO) Specimen Type: BLOOD No comment entered. Ordering Provider: NAOMI TRAN Report Released Date/Time: Apr 23, 2024 01:16 PM Reporting Lab: [address] [address] Performing Lab: [address] [address] WBC 8.80 10*3/uL 4.50-11.00 RBC 4.62 10*6/uL 4.23-5.66 HGB 14.1 g/dL 12.8-17 HCT 42.2 39.2-50.4 MCV 91.3 fL 82-99 MCHC 33.4 g/dL 30.8-35.1 PLT 185 10*3/uL 140-360 RDW-CV 12.8 12.0-16.0 MONO, ABS 1.18 10*3/uL H 0.30-1.10 MCH 30.5 pg 26.2-32.6 NEUT % 61.0 43.7-75.8 LYMPH % 22.8 14.0-42.3 MONO % 13.4 5.1-13.7 EOS % 1.5 0.4-6.8 BASO % 0.8 0.1-2.0 NEUT, ABS 5.37 10*3/uL 2.20-7.60 LYMPH, ABS 2.01 10*3/uL 1.00-3.20 EOS, ABS 0.13 10*3/uL 0.03-0.44 BASO, ABS 0.07 10*3/uL 0.01-0.13 IMMATURE GRAN % 0.5 0.0-0.7 IMMATURE GRAN, ABS 0.04 10*3/uL 0.00-0.06 NRBC % 0.0 0.0-0.0 NRBC, ABS 0.00 10*3/uL 0.00-0.00 Vital Signs: All taken on the encounter date This section contains inpatient and outpatient Vital Signs collected on the date of the Encounter. Date/Time Temperature Pulse Blood Pressure Respiratory Rate SP02 Pain Height Weight Body Mass Index Source Apr 23, 2024 01:12 PM 97 89 120/74 18 97 197 28 [facility] Social History: Smoking Status (Most current) and Tobacco Use (All prior to encounter date) This section includes the most current, and the historical, smoking and tobacco- related health factors from the [place] facility where the Encounter took place. Current Smoking Status This section includes the most current smoking, or tobacco-related health factor, from the [place] facility where the Encounter took place. Date/Time Current Smoking Status Comment [facility] Apr 23, 2024 01:00 PM [place]-TOBACCO NEVER USED [facility] Tobacco Use History This section includes a history of the smoking, or tobacco-related health factors, that were collected on or before the date of the Encounter. The data comes from the [place] facility where the Encounter took place. Date/Time Smoking Status/Tobacco Use Comment F acility May 12, 2023 10:00 AM VA-TOBACCO FORMER USER [facility] May 12, 2023 10:00 AM VA-TOBACCO QUIT 15 YRS OR MORE [facility] Jun 03, 2022 02:00 PM VA-TOBACCO FORMER USER [facility] Jun 03, 2022 02:00 PM VA-TOBACCO QUIT 15 YRS OR MORE [facility] Apr 15, 2021 10:00 AM VA-TOBACCO FORMER USER [facility] Apr 15, 2021 10:00 AM VA-TOBACCO QUIT 15 YRS OR MORE [facility] Feb 19, 2020 01:24 PM VA-TOBACCO FORMER USER [facility] Feb 19, 2020 01:24 PM VA-TOBACCO QUIT 15 YRS OR MORE [facility] Feb 01, 2019 11:11 AM VA-TOBACCO FORMER USER [facility] Feb 01, 2019 11:11 AM VA-TOBACCO QUIT 15 YRS OR MORE [facility] Jan 17, 2018 09:03 AM QUIT TOBACCO USE > 7 YEARS AGO stopped smoking 1969 [facility] Nov 16, 2016 08:51 AM QUIT TOBACCO USE > 7 YEARS AGO stopped smoking in 1969 [facility] Oct 28, 2015 03:03 PM QUIT TOBACCO USE > 7 YEARS AGO [facility] Oct 15, 2011 08:40 AM QUIT TOBACCO USE > 7 YEARS AGO Pt. quit smoking 15 years ago. [facility] Pathology Reports: +/- 30 days of the encounter Pathology Reports For cases when an order for pathology services may have been completed prior to the date of the Encounter, the report list includes the Pathology Reports that were completed up to 30 days before dateof the Encounter. For cases when an order for pathology services may have been completed after the date of the Encounter, the report list also includes the Pathology Reports that were completed up to30 days after date of the Encounter. The data comes from all [facility] facilities. Date/Time Pathology Report Provider Source Apr 23, 2024 03:45 PM LR MICROBIOLOGY RE PORT: Reporting Lab: [place] [facility] [CLIA# [id number]] [address] [place] [id number] Accession [UID]: [id number] [[id number]] Received: Apr 24, 2024@08:38 Collection sample: STOOL Collection date: Apr 23, 2024 15:45 Site/Specimen: [facility] Provider: NAOMI TRAN Comment on specimen: stool Test(s) ordered: CULTURE,STOOL (WX)............ completed: Apr 30, 2024 10:21 * BACTERIOLOGY FINAL REPORT => Apr 30, 2024 10:21 [facility] CODE: [id number] Bacteriology Remark(s): NEGATIVE for BOTH Shiga Toxins 1 and 2 Culture in progress NEGATIVE FOR SALMONELLA, SHIGELLA AND CAMPYLOBACTER =--=--=--=--=--=--=--=--=--=--=-- =--=--=--=--=--=--=--=--=--=--=-- =--=--=--=-- Performing Laboratory: Bacteriology Report Performed By: [facility] [CLIA# [id number]] [address] [place] [address] Bact Report Remark #3 Performed By: [facility] [CLIA# [id number]] [address] [place] [address] JAYDE BAUMANFIELD Encounter Notes: All associated encounter notes This section contains the clinical notes associated to the Encounter. Date/Time Encounter Note(s) Provider Source Apr 23, 2024 01:10 PM PREVENTIVE MEDICIN E NURSING NOTE: LOCAL TITLE: CLINICAL REMINDERS/NURSING STANDARD TITLE: PREVENTIVE MEDICINE NURSING NOTE DATE OF NOTE: APR 23, 2024@13:10 ENTRY DATE: APR 23, 2024@13:10:34 AUTHOR: PERRY FREIRE EXP COSIGNER: URGENCY: STATUS: COMPLETED Advance Directive Screen MH AD: Patient has an up-to-date Advance Directive at an outside, non-nm facility and was asked to forward a copy to his/her clinician. Td / Tdap Immunization: The patient declines to receive the recommended dose of Td/Tdap vaccine. Immunization: TD(ADULT) UNSPECIFIED FORMULATION Refusal Reason: PATIENT DECISION Patient refuses all immunization(s) in the Td group Date Documented: 04/23/24 13:10 COVID-19 Immunization: Refused Moderna Monovalent COVID-19 vaccine Immunization: COVID-19 (MODERNA), MRNA, LNP-S, PF, 50 MCG/0.5 ML (AGES 12+ YEARS) Refusal Reason: PATIENT DECISION Patient refuses all immunization(s) in the COVID-19 group Date Documented: 04/23/24 13:11 /guevara/ PERRY FREIRE LPN LICENSED PRACTICAL NURSE Signed: 04/23/2024 13:11 PERRY FREIRE [facility] Apr 23, 2024 01:05 PM PHYSICIAN MARY Garcia NOTE: LOCAL TITLE: PA NOTE STANDARD TITLE: PHYSICIAN DATA INTEGRITY ANALYST NOTE DATE OF NOTE: APR 23, 2024@13:05 ENTRY DATE: APR 23, 2024@13:05:17 AUTHOR: NAOMI TRAN EXP COSIGNER: URGENCY: STATUS: COMPLETED S - c/o diarrhea x 2-3 mos; intermittent - 3-4 times week non bloody no abd pn or bloating no fever no changes diet or travel outside country no sx indicative of spin cord compress or cauda equina O - coop A&Ox3 NAD W-N/H/D ABD: no distention faint bowel sounds not tender no mas, megaly A/P - 1) Diarrhea - Osmotic in Nature 2) Not Daily, but Chronic by Definition 3) No Fecal Incontinence, but Some Urgency - LABS: Stool Sample LYtes, CBC - Symptomatic Meds RTC prn Tobacco Use Screening: The patient has never used tobacco. Falls & Incontinence Screen: Falls Screen: 4. No falls within the past year. Incontinence Screen No incontinence. Suicide Screen: C-SSRS Screening [place]-Suicide Severity Rating Scale (C-SSRS Screener) 1. Over the past month, have you wished you were or wished you could go to sleep and not wake up? No 2. Over the past month, have you had any actual thoughts of killing yourself? No 3. Over the past month, have you been thinking about how you might do this? Response not required due to responses to other questions. 4. Over the past month, have you had these thoughts and had some intention of acting on them? Response not required due to responses to other questions. 5. Over the past month, have you started to work out or worked out the details of how to kill yourself? Response not required due to responses to other questions. 6. If yes, at any time in the past month did you intend to carry out this plan? Response not required due to responses to other questions. 7. In your lifetime, have you ever done anything, started to do anything, or prepared to do anything to end your life (for example, collected pills, obtained a gun, gave away valuables, went to the roof but didn't jump)? No 8. If YES, was this within the past 3 months? Response not required due to responses to other questions. Medication Reconciliation: Outpatient: Has the patient been taking medications as documented in the EMLR? YES: The patient has been taking medications as documented in the EMLR. Essential Medication List for Review used to complete this medication reconciliation. INCLUDED IN THIS LIST: Alphabetical list of active outpatient prescriptions dispensed from this [place] (local) and dispensed from another [place] or [facility] facility (remote) as well as inpatient orders [...] provider. /guevara/ NAOMI TRAN PA-C STAFF PHYSICIAN DATA INTEGRITY ANALYST Signed: 04/23/2024 13:23 NAOMI TRAN
--- OUTSIDE RECORDS SUMMARY | 2024-12-17 18:27 | XMS_ITS | Continuity of Care Document ---
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 It does not include entries that were removed or entered in error. Problem Status Onset Date Problem Type Date of Resolution Comments Source Other and unspecified noninfectious gastroenteritis and colitis Active 968 Condition [facility] Allergy Active Condition May 12 Entered By: NAOMI TRAN Comment: Numerous; Environmental, Foods [place] Cataract Active Condition Apr 15 Entered By: NAOMI TRAN Comment: Surg O.U. 2020 [place] Chest pain Active Condition Apr 30 Entered By: NAOMI TRAN Comment: EKG, MAY 07: NSRNov 03, 2015 Entered By: NAOMI TRAN Comment: Stress Test Kinder MAY 07: No IschemiaDec 16, 2021 Entered By: NAOMI TRAN Comment: EKG DEC 15: NSR [place] Chronic ethmoidal sinusitis Active Condition May 08, 2014 Entered By: NAOMI TRAN Comment: see CT, Maxil-Fac MAY 06 +Chronic SinusitisOct 28, 2014 Entered By: NAOMI TRAN Comment: Surg Not Needed; Tx Medically Only [place] Concussion Active Condition Oct 28 Entered By: NAOMI TRAN Comment: Fell Ground; Fx Nose; Lose Balance? Unconscious?Oct 28, 2014 Entered By: NAOMI TRAN Comment: saw Private PCP after that [place] History of vaccination Active Condition Nov 16, 2016 Entered By: NAOMI TRAN Comment: PREVNAR APRIL 07; tDap in 2012 [place] Hypertension (SNOMED CT [id number]) Active Condition Feb 03, 2018 Entered By: NAOMI TRAN Comment: US, Aorta FEB 08: Neg AAA [place] Hypothyroidism Active Condition Sep 242010 Entered By: ENRICO MURILLO Comment: Cold Thyroid Nodules 1967: ThyroidectomyJu2015 Entered By: NAOMI TRAN Comment: Surgically HypothyroidJan 17, 2018 Entered By: NAOMI TRAN Comment: Last Saw Private Endo AUG 09; Cont SynthroidAug 22, 2017 Entered By: NAOMI TRAN Comment: Dr. Edgar [facility] [phone] [place] Irritable bowel syndrome Active Condition Apr 20, 2022 Entered By: NAOMI TRAN Comment: Dx IBS per Private Gastro (referred there by private pcp) [place] New daily persistent headache Active Condition Feb 03, 2018 Entered By: NAOMI TRAN Comment: CT, Head FEB 08: NL Study; Mo Mass, Bleed, or Active Disease [facility] Active Condition [facility] Personal History of Colonic Polyps Active Condition Oct 15 Entered By: ENRICO MURILLO Comment: 2007: Normal 2003: Polypectomy Due In 2011Ju2012 Entered By: NAOMI TRAN Comment: Surg Excision Int Hemorrhoids APRIL 05; [facility] [place] Screening for malignant neoplasm of colon done Active Condition Feb 21, 2020 Entered By: NAOMI TRAN Comment: pending Diagnostic Colonoscopy and EGD MARCH 12:Feb 21, 2020 Entered By: NAOMI TRAN Comment: Reasons: Non-Bloody Diarrhea and Dyspepsia;Feb 21, 2020 Entered By: NAOMI TRAN Comment: PMH of DiverticulosisJun 2020 Entered By: NAOMI TRAN Comment: Last EGD and Colonoscopy FEBRUARY 2020:Apr 15, 2021 Entered By: NAOMI TRAN Comment: EGD Neg Gastric CAJun 2020 Entered By: NAOMI TRAN Comment: Colonoscopy Neg Sprue; +Diverticulosis; +Int Hemorroid;Apr 15, 2021 Entered By: NAOMI TRAN Comment: +Benign Polyp; Excised [place] Shoulder joint pain Active Condition May 12, 2016 Entered By: NAOMI TRAN Comment: R Side; MRI, [facility] 2016: RC Tear; is Surg Candidate;May 12, 2016 Entered By: NAOMI TRAN Comment: doing PT; Cortisone Inj 2017 Entered By: NAOMI TRAN Comment: also RC Tear L Shldr per Ortho - Doing PT as of 2017 Entered By: NAOMI TRAN Comment: Surg Repair, RC L Side in MARCH 10 via [facility]ep 2019 Entered By: NAOMI TRAN Comment: RC Tear, R Shldr as of JUL 13 - Has Private Ortho [place] Venous stasis Active Condition Sep Entered By: NAOMI TRAN Comment: B/L LE's - L Side > R Side [place] Diagnosis: ICD-10-CM L20.9 Atopic dermatitis, unspecified Active Diagnosis [facility] Diagnosis: ICD-10-CM I87.8 Other specified disorders of veins Active Diagnosis [facility] Diagnosis: ICD-10-CM F01.B0 Vascular dementia, moderate, 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 Active Diagnosis [place] Diagnosis: ICD-10-CM 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 [place] Diagnosis: ICD-10-CM Z46.1 Encounter for fitting and adjustment of hearing aid Active Diagnosis [facility] Diagnosis: ICD-10-CM Z46.0 Encounter for fit/adjst of spectacles and contact lenses Active Diagnosis [facility] Diagnosis: ICD-10-CM L71.8 Other rosacea Active Diagnosis [facility] Diagnosis: ICD-10-CM L20.89 Other atopic dermatitis Active Diagnosis [facility] Diagnosis: ICD-10-CM E03.9 Hypothyroidism, unspecified Active Diagnosis [facility] Medications Combined list of outpatient medications from Department of Defense and Veterans Affairs facilities.Medications provided include 1) outpatient medications from the last 15 months, and 2) patient-reported medications. Medication Details Route Status Patient Instructions Prescription Expires Prescription Number Last Dispense Date Ordering Provider Order Date Order Qty Source CARBOXYMETH YLCELLULOSE NA 1% GEL,OPH APPLY 1 DROP INTO EACH EYE FOUR TIMES DAILY NEEDED FOR DRYNESS OPHTHA LMIC ACTIVE 01/23/2025 [id number] ADDISON TRAN 2023 45 [place] CEPHALEXIN 500MG CAP TAKE ONE CAPSULE BY MOUTH FOUR TIMES A DAY FOR INFECTIO N ORAL DISCONT INUED 11/17/2024 [id number] ADDISON TRAN 2023 40 [facility] CEPHALEXIN 500MG CAP TAKE ONE CAPSULE BY MOUTH FOUR TIMES A DAY FOR INFECTIO N ORAL 11/25/2024 [id number] ADDISON RTAN 2024 40 [place] CETIRIZINE HCL 10MG TAB TAKE ONE TABLET BY MOUTH ONCE DAILY FOR ALLERGIE S ORAL DISCONT INUED 02/05/2024 [id number] ADDISON TRAN 2023 30 [place] CETIRIZINE HCL 10MG TAB TAKE ONE TABLET BY MOUTH ONCE DAILY FOR ALLERGIE S ORAL DISCONT INUED 12/17/2023 [id number] ADDISON TRAN 2023 30 [place] CETIRIZINE HCL 10MG TAB TAKE ONE TABLET BY MOUTH ONCE DAILY FOR ALLERGIE S ORAL 02/22/2024 [id number] ADDISON TRAN 2023 30 [place] CLOBETASOL PROPIONATE 0.05% OINT,TOP APPLY THIN LAYER TOPICALL Y TWICE DAILY FOR ITCHING/ RASH TOPICA L ACTIVE 11/15/2025 [id number] ADDISON TRAN 2024 60 [place] CLOBETASOL PROPIONATE 0.05% OINT,TOP APPLY THIN LAYER TOPICALL Y TWICE DAILY FOR ITCHING/ RASH TOPICA L DISCONT INUED 11/17/2024 [id number] ADDISON TRAN 2023 60 [place] CYANOCOBALA MIN 1000MCG TAB TAKE ONE TABLET BY MOUTH ONCE DAILY FOR PREVENTI ON OF VITAMIN B12 DEFICIEN CY ORAL ACTIVE 01/23/2025 [id number] ADDISON TRAN 2023 90 [place] CYANOCOBALA MIN 1000MCG TAB TAKE ONE TABLET BY MOUTH ONCE DAILY FOR PREVENTI ON OF VITAMIN B12 DEFICIEN CY ORAL DISCONT INUED 06/17/2024 [id number] ERIK AGUIRRE 2022 90 [place] DONEPEZIL HCL 10MG TAB TAKE ONE TABLET BY MOUTH ONCE DAILY FOR ALZHEIME R'S DISEASE ORAL ACTIVE 07/18/2025 [id number] ADDISON TRAN 2023 60 [place] DONEPEZIL HCL 10MG TAB TAKE ONE TABLET BY MOUTH ONCE DAILY FOR ALZHEIME R'S DISEASE ORAL DISCONT INUED 01/23/2025 [id number] ADDISON TRAN 2023 60 [place] DONEPEZIL HCL 10MG TAB TAKE ONE TABLET BY MOUTH ONCE DAILY FOR ALZHEIME R'S DISEASE ORAL DISCONT INUED 06/24/2024 [id number] ADDISON TRAN 2022 60 [place] GABAPENTIN 300MG CAP TAKE ONE CAPSULE BY MOUTH THREE TIMES DAILY NEEDED FOR NERVE PAIN ORAL ACTIVE 08/25/2025 [id number] ADDISON TRAN 2023 180 [place] GABAPENTIN 300MG CAP TAKE ONE CAPSULE BY MOUTH THREE TIMES DAILY NEEDED FOR NERVE PAIN ORAL DISCONT INUED 01/23/2025 [id number] ADDISON TRAN 2023 180 [place] HYDROXYZINE PAMOATE 25MG CAP TAKE ONE CAPSULE BY MOUTH THREE TIMES DAILY NEEDED FOR HIVES ORAL DISCONT INUED 11/25/2024 [id number] ADDISON TRAN 2024 30 [place] HYDROXYZINE PAMOATE 25MG CAP TAKE ONE CAPSULE BY MOUTH THREE TIMES DAILY NEEDED FOR HIVES ORAL DISCONT INUED 11/17/2024 [id number] ADDISON TRAN 2023 30 [place] HYDROXYZINE PAMOATE 25MG CAP TAKE ONE CAPSULE BY MOUTH THREE TIMES DAILY NEEDED FOR HIVES ORAL 12/14/2024 [id number] ADDISON TRAN 2024 30 [place] LEVOTHYROXI NE NA 125MCG TAB TAKE ONE TABLET BY MOUTH EVERY MORNING 30 MINUTES BEFORE BREAKFAS T FOR THYROID - TAKE ON AN EMPTY STOMACH WITH A FULL GLASS OF WATER ORAL ACTIVE 11/15/2025 [id number] ADDISON TRAN 2024 90 [place] LEVOTHYROXI NE NA 125MCG TAB (SYNTHROID) TAKE ONE TABLET BY MOUTH EVERY MORNING 30 MINUTES BEFORE BREAKFAS T FOR THYROID - TAKE ON AN EMPTY STOMACH WITH A FULL GLASS OF WATER ORAL DISCONT INUED 07/18/2025 [id number] ADDISON TRAN 2023 90 [place] LEVOTHYROXI NE NA 125MCG TAB (SYNTHROID) TAKE ONE TABLET BY MOUTH EVERY MORNING 30 MINUTES BEFORE BREAKFAS T FOR THYROID - TAKE ON AN EMPTY STOMACH WITH A FULL GLASS OF WATER ORAL DISCONT INUED 01/23/2025 [id number] ADDISON TRAN 2023 90 [place] LEVOTHYROXI NE NA 125MCG TAB (SYNTHROID) TAKE ONE TABLET BY MOUTH EVERY MORNING 30 MINUTES BEFORE BREAKFAS T FOR THYROID - TAKE ON AN EMPTY STOMACH WITH A FULL GLASS OF WATER ORAL DISCONT INUED 06/24/2024 [id number] ADDISON TRAN 2022 90 [place] LOPERAMIDE HCL 2MG CAP TAKE TWO CAPSULES BY MOUTH DIRECTED BY PROVIDER ORAL ACTIVE 04/24/2025 [id number] ADDISON TRAN 2023 24 [place] OTHER CAP/TAB TAKE EYE GEL BY MOUTH ONCE DAILY ORAL ACTIVE ADDISON TRAN 2020 [place] POLYVINYL ALCOHOL 1.4%/POVIDO NE (PF) SOLN,OPH INSTILL 1 DROP INTO EACH EYE ONCE DAILY NEEDED FOR DRY EYE OPHTHA LMIC ACTIVE 08/25/2025 [id number] ADDISON TRAN 2023 50 [place] PSYLLIUM SUGAR FREE PWDR,ORAL TAKE 1 TEASPOON FUL BY MOUTH ONCE DAILY FOR CONSTIPA TION (MIX WITH AT LEAST 8OZ. OF WATER OR OTHER FLUID) ORAL ACTIVE 04/24/2025 [id number] ADDISON TRAN 2023 300 [place] SALIVA,JUDE FICIAL SPRAY,ORAL 2 SPRAYS BY MOUTH ONCE DAILY FOR DRY MOUTH ORAL ACTIVE 08/25/2025 [id number] ADDISON TRAN 2023 240 [place] SALIVA,JUDE FICIAL SPRAY,ORAL 2 SPRAYS BY MOUTH ONCE DAILY FOR DRY MOUTH ORAL DISCONT INUED 01/23/2025 [id number] ADDISON TRAN 2023 240 [place] TRIAMCINOLO NE ACETONIDE 0.5% OINT,TOP APPLY SMALL AMOUNT TOPICALL Y TWICE DAILY NEEDED FOR ITCHING TOPICA L DISCONT INUED 11/25/2024 [id number] TRANADDISON GOLDBERG 2024 30 [place] TRIAMCINOLO NE ACETONIDE 0.5% OINT,TOP APPLY SMALL AMOUNT TOPICALL Y TWICE DAILY NEEDED FOR ITCHING TOPICA L DISCONT INUED 11/17/2024 [id number] TRANADDISON GOLDBERG 2023 30 [place] TRIAMCINOLO NE ACETONIDE 0.5% OINT,TOP APPLY SMALL AMOUNT TOPICALL Y TWICE DAILY NEEDED FOR ITCHING TOPICA L 12/14/2024 [id number] ADDISON TRAN 2024 30 [place] VALSARTAN 160MG TAB TAKE ONE TABLET BY MOUTH EVERY DAY ORAL ACTIVE 07/18/2025 [id number] ADDISON TRAN 2023 90 [place] VALSARTAN 160MG TAB TAKE ONE TABLET BY MOUTH EVERY DAY ORAL DISCONT INUED 01/23/2025 [id number] TRANADDISON RIBERA 2023 90 [place] VALSARTAN 160MG TAB TAKE ONE TABLET BY MOUTH EVERY DAY ORAL DISCONT INUED 06/24/2024 [id number] TRANADDISON RIBERA 2022 90 [place] Allergies, Adverse Reactions, Alerts Combined list of allergies from Department of Defense and Veterans Affairs facilities. It does not include entries that were removed or entered in error. Substance Category Reaction Severity Reaction type Status Date Reported Comments Source LISINOPRIL Propensity to adverse reactions to drug (finding) Anaphylaxis active 1 [facility] [place] Propensity to adverse reactions to substance (finding) Anaphylaxis active 1 [facility] [place] Propensity to adverse reactions to substance (finding) active 4 [facility] [place] Propensity to adverse reactions to substance (finding) Anaphylaxis active 1 [facility] Immunizations Combined list of available immunizations from the Department of Defense and Veterans Affairs facilities. Immunization Series Date Given Administered By Site Reaction Lot Number CVX Code Drug Puller Over Status Comments Source INFLUENZA, UNSPECIFIED FORMULATION 2023 88 complet ed [facility] INFLUENZA, UNSPECIFIED FORMULATION 2022 88 complet ed [facility] INFLUENZA, UNSPECIFIED FORMULATION 2021 88 complet ed [facility] COVID-19 (PFIZER), MRNA, LNP-S, PF, 30 MCG/0.3 ML DOSE 3 2020 208 complet ed [facility] INFLUENZA, UNSPECIFIED FORMULATION 2020 88 complet ed [facility] ZOSTER RECOMBINANT 2 2020 187 complet ed [place] ZOSTER RECOMBINANT 1 2020 187 complet ed [place] COVID-19 (PFIZER), MRNA, LNP-S, PF, 30 MCG/0.3 ML DOSE 2 2020 208 complet ed [facility] COVID-19 (PFIZER), MRNA, LNP-S, PF, 30 MCG/0.3 ML DOSE 1 2020 208 complet ed [facility] INFLUENZA, INJECTABLE, QUADRIVALENT, PRESERVATIVE FREE 2019 150 complet ed [facility] INFLUENZA, INJECTABLE, QUADRIVALENT, PRESERVATIVE FREE 2018 150 complet ed Site: Left Deltoid [place] INFLUENZA, INJECTABLE, QUADRIVALENT 2017 158 complet ed Site: Right Deltoid [place] INFLUENZA, SEASONAL, INJECTABLE 2016 141 complet ed [facility] FLU,3 YRS (HISTORICAL) 2016 88 complet ed Site: Right Deltoid [place] FLU,3 YRS (HISTORICAL) 2015 88 complet ed Site: Left Deltoid [place] PNEUMOCOCCAL CONJUGATE PCV 13 2014 133 complet ed requested [facility] FLU,3 YRS (HISTORICAL) 2013 88 complet ed Site: Left Deltoid [place] FLU,3 YRS (HISTORICAL) 2012 88 complet ed Site: Left Deltoid [place] DTAP, UNSPECIFIED FORMULATION 2012 107 complet ed na [facility] FLU,3 YRS (HISTORICAL) 2011 88 complet ed Pt. was vaccinate d at [facility]. [facility] ZOSTER LIVE 2011 SONAM ADAMS 121 complet ed [place] FLU,3 YRS (HISTORICAL) 2010 88 complet ed Pt. was with his civilian provider for his vaccine. [facility] PNEUMOCOCCAL, UNSPECIFIED FORMULATION 2009 109 complet ed [facility] TD(ADULT) UNSPECIFIED FORMULATION 2008 139 complet ed Pt. had cut his hand. [facility] Results Combined list of recent chemistry, hematology and other laboratory results from Department of Defense and Veterans Affairs, ranging from 15 months to all on record, depending upon the facility. Order Name Results Value Reference Range Date Interpretation Specimen Comments Source BASIC METABOLIC PANEL (fasting) UREA NITROGEN [MASS/VOLUM E] IN SERUM OR PLASMA 16 mg/dL 7 - 25 08/20 Specimen Type: SERUM No comment entered. Ordering Provider: NAOMI TRAN Report Released Date/Time: Aug 14, 2024 01:44 PM Reporting Lab: [facility] [address] [facility] [address] Performing Lab: [facility] [address] [facility] [address] [employer] [place] BASIC METABOLIC PANEL (fasting) GLUCOSE [MASS/VOLUM E] IN SERUM OR PLASMA 95 mg/dL 65 - 100 08/20 Specimen Type: SERUM No comment entered. Ordering Provider: NAOMI TRAN Report Released Date/Time: Aug 14, 2024 01:44 PM Reporting Lab: [facility] [address] [facility] [address] Performing Lab: [facility] [address] [employer] [place] BASIC METABOLIC PANEL (fasting) SODIUM [MOLES/VOLU ME] IN SERUM OR PLASMA 140 mmol/L 135 - 145 08/20 Specimen Type: SERUM No comment entered. Ordering Provider: NAOMI TRAN Report Released Date/Time: Aug 14, 2024 01:44 PM Reporting Lab: [facility] [address] [facility] [address] Performing Lab: [facility] [address] [address] [place] BASIC METABOLIC PANEL (fasting) POTASSIUM [MOLES/VOLU ME] IN SERUM OR PLASMA 4.1 mmol/L 3.5 - 5.0 08/20 Specimen Type: SERUM No comment entered. Ordering Provider: NAOMI TRAN Report Released Date/Time: Aug 14, 2024 01:44 PM Reporting Lab: [address] [address] Performing Lab: [address] [address] [place] BASIC METABOLIC PANEL (fasting) CHLORIDE [MOLES/VOLU ME] IN SERUM OR PLASMA 105 mmol/L 100 - 110 08/20 Specimen Type: SERUM No comment entered. Ordering Provider: NAOMI TRAN Report Released Date/Time: Aug 14, 2024 01:44 PM Reporting Lab: [address] [address] Performing Lab: [facility] [address] [address] [place] BASIC METABOLIC PANEL (fasting) CARBON DIOXIDE, TOTAL [MOLES/VOLU ME] IN SERUM OR PLASMA 25 meq/L 20 - 30 08/20 Specimen Type: SERUM No comment entered. Ordering Provider: NAOMI TRAN Report Released Date/Time: Aug 14, 2024 01:44 PM Reporting Lab: [address] [address] Performing Lab: [facility] [address] [address] [place] BASIC METABOLIC PANEL (fasting) CREATININE [MASS/VOLUM E] IN SERUM OR PLASMA 0.91 mg/dL 0.50 - 1.40 08/20 Specimen Type: SERUM No comment entered. Ordering Provider: NAOMI TRAN Report Released Date/Time: Aug 14, 2024 01:44 PM Reporting Lab: [address] [address] Performing Lab: [address] [address] [place] BASIC METABOLIC PANEL (fasting) GLOMERULAR FILTRATION RATE/1.73 SQ M.PREDICTED [VOLUME RATE/AREA] IN SERUM, PLASMA OR BLOOD BY CREATININE- BASED FORMULA (CKD-EPI 2020) 85 mL/min 60 08/20 Specimen Type: SERUM No comment entered. Ordering Provider: NAOMI TRAN Report Released Date/Time: Aug 14, 2024 01:44 PM Reporting Lab: [address] [address] Performing Lab: [address] [address] [place] LIVER FUNCTION PROTEIN [MASS/VOLUM E] IN SERUM OR PLASMA 7.0 g/dL 6.0 - 8.3 08/20 Specimen Type: SERUM No comment entered. Ordering Provider: NAOMI TRAN Report Released Date/Time: Aug 14, 2024 01:44 PM Reporting Lab: [address] [address] Performing Lab: [address] [address] [place] LIVER FUNCTION ALBUMIN [MASS/VOLUM E] IN SERUM OR PLASMA 3.7 g/dL 3.5 - 5.0 08/20 Specimen Type: SERUM No comment entered. Ordering Provider: NAOMI TRAN Report Released Date/Time: Aug 14, 2024 01:44 PM Reporting Lab: [address] [address] Performing Lab: [address] [address] [place] LIVER FUNCTION ALKALINE PHOSPHATASE [ENZYMATIC ACTIVITY/VO LUME] IN SERUM OR PLASMA 71 U/L 40 - 150 08/20 Specimen Type: SERUM No comment entered. Ordering Provider: NAOMI TRAN Report Released Date/Time: Aug 14, 2024 01:44 PM Reporting Lab: [facility] [address] [address] Performing Lab: [facility] [address] [address] [place] LIVER FUNCTION ASPARTATE AMINOTRANSF ERASE [ENZYMATIC ACTIVITY/VO LUME] IN SERUM OR PLASMA 14 U/L 5 - 34 08/20 Specimen Type: SERUM No comment entered. Ordering Provider: NAOMI TRAN Report Released Date/Time: Aug 14, 2024 01:44 PM Reporting Lab: [facility] [address] [address] Performing Lab: [facility] [address] [address] [place] LIVER FUNCTION ALANINE AMINOTRANSF ERASE [ENZYMATIC ACTIVITY/VO LUME] IN SERUM OR PLASMA 11 U/L 08/20 Specimen Type: SERUM No comment entered. Ordering Provider: NAOMI TRAN Report Released Date/Time: Aug 14, 2024 01:44 PM Reporting Lab: [facility] [address] [address] Performing Lab: [facility] [address] [address] [place] LIVER FUNCTION BILIRUBIN.T OTAL [MASS/VOLUM E] IN SERUM OR PLASMA 0.6 mg/dL 0.2 - 1.2 08/20 Specimen Type: SERUM No comment entered. Ordering Provider: NAOMI TRAN Report Released Date/Time: Aug 14, 2024 01:44 PM Reporting Lab: [address] [address] Performing Lab: [address] [address] [place] LIPID PANEL FASTING CHOLESTEROL [MASS/VOLUM E] IN SERUM OR PLASMA 181 mg/dL 08/20 Specimen Type: SERUM No comment entered. Ordering Provider: NAOMI TRAN Report Released Date/Time: Aug 14, 2024 01:44 PM Reporting Lab: [facility] [address] [facility] [address] Performing Lab: [facility] [address] [address] [place] LIPID PANEL FASTING TRIGLYCERID E [MASS/VOLUM E] IN SERUM OR PLASMA 104 mg/dL 0 - 150 08/20 Specimen Type: SERUM No comment entered. Ordering Provider: NAOMI TRAN Report Released Date/Time: Aug 14, 2024 01:44 PM Reporting Lab: [facility] [address] [facility] [address] Performing Lab: [address] [address] [place] LIPID PANEL FASTING CHOLESTEROL IN LDL [MASS/VOLUM E] IN SERUM OR PLASMA BY CALCULATION 110 mg/dL 0 - 129 08/20 Specimen Type: SERUM No comment entered. Ordering Provider: NAOMI TRAN Report Released Date/Time: Aug 14, 2024 01:44 PM Reporting Lab: [facility] [address] [address] Performing Lab: [address] [address] [place] LIPID PANEL FASTING CHOLESTEROL .TOTAL/CHOL ESTEROL IN HDL [MASS RATIO] IN SERUM OR PLASMA 3.6 08/20 Specimen Type: SERUM No comment entered. Ordering Provider: NAOMI TRAN Report Released Date/Time: Aug 14, 2024 01:44 PM Reporting Lab: [facility] [address] [address] Performing Lab: [facility] [address] [address] [place] LIPID PANEL FASTING CHOLESTEROL IN HDL [MASS/VOLUM E] IN SERUM OR PLASMA 50 mg/dL 40 - 60 08/20 Specimen Type: SERUM No comment entered. Ordering Provider: NAOMI TRAN Report Released Date/Time: Aug 14, 2024 01:44 PM Reporting Lab: [facility] [address] [address] Performing Lab: [address] [address] [place] HEMOGLOBI N A1C PANEL HEMOGLOBIN A1C/HEMOGLO BIN.TOTAL IN BLOOD BY HPLC 5.4 4.0 - 5.6 08/20 Specimen Type: BLOOD Comment: Values obtained from A1C measurement s can vary. For atypical A1C assays, a reported value of 7.0 could actually be between 6.72 and 7.28 if measured by a reference method. A reported value of 9.0 could actually be between 8.73 and 9.27. Ref: http://www. ngsp.org/[place] Pdata.asp Ordering Provider: NAOMI TRAN Report Released Date/Time: Aug 14, 2024 01:44 PM Reporting Lab: [address] [address] Performing Lab: [address] [address] [place] CALCIUM CALCIUM [MASS/VOLUM E] IN SERUM OR PLASMA 8.3 mg/dL 8.5 - 10.2 08/20 L Specimen Type: SERUM No comment entered. Ordering Provider: NAOMI TRAN Report Released Date/Time: Aug 14, 2024 01:44 PM Reporting Lab: [address] [address] Performing Lab: [address] [address] [place] TSH THYROTROPIN [UNITS/VOLU ME] IN SERUM OR PLASMA 1.23 u[IU]/ mL 0.35 - 5.00 08/20 Specimen Type: SERUM No comment entered. Ordering Provider: NAOMI TRAN Report Released Date/Time: Aug 14, 2024 01:44 PM Reporting Lab: [address] [address] Performing Lab: [address] [address] [place] URIC ACID URATE [MASS/VOLUM E] IN SERUM OR PLASMA 6.5 mg/dL 3.5 - 7.2 08/20 Specimen Type: SERUM No comment entered. Ordering Provider: NAOMI TRAN Report Released Date/Time: Aug 14, 2024 01:44 PM Reporting Lab: [facility] [address] [address] Performing Lab: [facility]N [facility]ITALUSE[address] [address] [place] CBC AND DIFF (AUTO) LEUKOCYTES [#/VOLUME] IN BLOOD BY AUTOMATED COUNT 7.71 10*3/u L 4.50 - 11.00 08/20 Specimen Type: BLOOD No comment entered. Ordering Provider: NAOMI TRAN Report Released Date/Time: Aug 14, 2024 01:44 PM Reporting Lab: [facility] [address] [address] Performing Lab: [facility] [address] [address] [place] CBC AND DIFF (AUTO) ERYTHROCYTE S [#/VOLUME] IN BLOOD BY AUTOMATED COUNT 4.73 10*6/u L 4.23 - 5.66 08/20 Specimen Type: BLOOD No comment entered. Ordering Provider: NAOMI TRAN Report Released Date/Time: Aug 14, 2024 01:44 PM Reporting Lab: [facility]RW[facility]ITALTRN [address] [address] Performing Lab: [facility] [address] [address] [place] CBC AND DIFF (AUTO) HEMOGLOBIN [MASS/VOLUM E] IN BLOOD 14.3 g/dL 12.8 - 17 08/20 Specimen Type: BLOOD No comment entered. Ordering Provider: NAOMI TRAN Report Released Date/Time: Aug 14, 2024 01:44 PM Reporting Lab: [facility]TR[facility] [address] [address] Performing Lab: [facility]N [address] [address] [place] CBC AND DIFF (AUTO) HEMATOCRIT [VOLUME FRACTION] OF BLOOD BY AUTOMATED COUNT 43.1 39.2 - 50.4 08/20 Specimen Type: BLOOD No comment entered. Ordering Provider: NAOMI TRAN Report Released Date/Time: Aug 14, 2024 01:44 PM Reporting Lab: [facility] [address] [address] Performing Lab: [facility] [address] [address] [place] CBC AND DIFF (AUTO) MCV [ENTITIC VOLUME] BY AUTOMATED COUNT 91.1 fL 82 - 99 08/20 Specimen Type: BLOOD No comment entered. Ordering Provider: NAOMI TRAN Report Released Date/Time: Aug 14, 2024 01:44 PM Reporting Lab: [address] [address] Performing Lab: [facility] [address] [address] [place] CBC AND DIFF (AUTO) MCHC [MASS/VOLUM E] BY AUTOMATED COUNT 33.2 g/dL 30.8 - 35.1 08/20 Specimen Type: BLOOD No comment entered. Ordering Provider: NAOMI TRAN Report Released Date/Time: Aug 14, 2024 01:44 PM Reporting Lab: [address] [address] Performing Lab: [facility] [address] [address] [place] CBC AND DIFF (AUTO) PLATELETS [#/VOLUME] IN BLOOD BY AUTOMATED COUNT 196 10*3/u L 140 - 360 08/20 Specimen Type: BLOOD No comment entered. Ordering Provider: NAOMI TRAN Report Released Date/Time: Aug 14, 2024 01:44 PM Reporting Lab: [address] [address] Performing Lab: [facility] [address] [address] [place] CBC AND DIFF (AUTO) ERYTHROCYTE DISTRIBUTIO N WIDTH [RATIO] BY AUTOMATED COUNT 13.0 12.0 - 16.0 08/20 Specimen Type: BLOOD No comment entered. Ordering Provider: NAOMI TRAN Report Released Date/Time: Aug 14, 2024 01:44 PM Reporting Lab: [facility] [place] [address] [address] Performing Lab: [place] [facility] [place] [address] [address] [place] CBC AND DIFF (AUTO) MONOCYTES [#/VOLUME] IN BLOOD BY AUTOMATED COUNT 0.85 10*3/u L 0.30 - 1.10 08/20 Specimen Type: BLOOD No comment entered. Ordering Provider: NAOMI TRAN Report Released Date/Time: Aug 14, 2024 01:44 PM Reporting Lab: [facility]ITALTRN [place] [address] [address] Performing Lab: [place] [facility] TRN [facility]ITALUSETS [address] [address] [place] CBC AND DIFF (AUTO) MCH [ENTITIC MASS] BY AUTOMATED COUNT 30.2 pg 26.2 - 32.6 08/20 Specimen Type: BLOOD No comment entered. Ordering Provider: NAOMI TRAN Report Released Date/Time: Aug 14, 2024 01:44 PM Reporting Lab: [facility]ITALTRN [place] [address] [address] Performing Lab: [place] [address] [address] [place] CBC AND DIFF (AUTO) NEUTROPHILS /100 LEUKOCYTES IN BLOOD BY AUTOMATED COUNT 65.6 43.7 - 75.8 08/20 Specimen Type: BLOOD No comment entered. Ordering Provider: NAOMI TRAN Report Released Date/Time: Aug 14, 2024 01:44 PM Reporting Lab: [facility] [place] [address] [address] Performing Lab: [facility]ITALRW[facility]PITALTRN [facility]OSPITALUSETS [address] [address] [place] CBC AND DIFF (AUTO) LYMPHOCYTES /100 LEUKOCYTES IN BLOOD BY AUTOMATED COUNT 20.8 14.0 - 42.3 08/20 Specimen Type: BLOOD No comment entered. Ordering Provider: NAOMI TRAN Report Released Date/Time: Aug 14, 2024 01:44 PM Reporting Lab: [facility]ITALRW[facility]OSPITALTRN [facility]PITALUSE[address] [address] Performing Lab: [facility]ITALRST[facility]TONN [facility] HOSPITALUSE[address] [address] [place] CBC AND DIFF (AUTO) MONOCYTES/1 00 LEUKOCYTES IN BLOOD BY AUTOMATED COUNT 11.0 5.1 - 13.7 08/20 Specimen Type: BLOOD No comment entered. Ordering Provider: NAOMI TRAN Report Released Date/Time: Aug 14, 2024 01:44 PM Reporting Lab: [facility]ITALRW[facility]PITALTRN [address] [address] Performing Lab: [facility]ITALRST[facility]N [address] [address] [place] CBC AND DIFF (AUTO) EOSINOPHILS /100 LEUKOCYTES IN BLOOD BY AUTOMATED COUNT 1.3 0.4 - 6.8 08/20 Specimen Type: BLOOD No comment entered. Ordering Provider: NAOMI TRAN Report Released Date/Time: Aug 14, 2024 01:44 PM Reporting Lab: [facility]RW[facility]ITALTRN [address] [address] Performing Lab: [facility]ITALRST[facility]N [address] [address] [place] CBC AND DIFF (AUTO) BASOPHILS/1 00 LEUKOCYTES IN BLOOD BY AUTOMATED COUNT 1.0 0.1 - 2.0 08/20 Specimen Type: BLOOD No comment entered. Ordering Provider: NAOMI TRAN Report Released Date/Time: Aug 14, 2024 01:44 PM Reporting Lab: [facility]RW[facility]ITALTRN [address] [address] Performing Lab: [facility]N [address] [address] [place] CBC AND DIFF (AUTO) NEUTROPHILS [#/VOLUME] IN BLOOD BY AUTOMATED COUNT 5.06 10*3/u L 2.20 - 7.60 08/20 Specimen Type: BLOOD No comment entered. Ordering Provider: NAOMI TRAN Report Released Date/Time: Aug 14, 2024 01:44 PM Reporting Lab: [facility]ITALRWALK[facility] HOSPITALTRN [address] [place] [address] Performing Lab: [facility] [address] [address] [place] CBC AND DIFF (AUTO) LYMPHOCYTES [#/VOLUME] IN BLOOD BY AUTOMATED COUNT 1.60 10*3/u L 1.00 - 3.20 08/20 Specimen Type: BLOOD No comment entered. Ordering Provider: NAOMI TRAN Report Released Date/Time: Aug 14, 2024 01:44 PM Reporting Lab: [facility] [address] [address] Performing Lab: [address] [address] [place] CBC AND DIFF (AUTO) EOSINOPHILS [#/VOLUME] IN BLOOD BY AUTOMATED COUNT 0.10 10*3/u L 0.03 - 0.44 08/20 Specimen Type: BLOOD No comment entered. Ordering Provider: NAOMI TRAN Report Released Date/Time: Aug 14, 2024 01:44 PM Reporting Lab: [facility] [address] [address] Performing Lab: [facility] [address] [address] [place] CBC AND DIFF (AUTO) BASOPHILS [#/VOLUME] IN BLOOD BY AUTOMATED COUNT 0.08 10*3/u L 0.01 - 0.13 08/20 Specimen Type: BLOOD No comment entered. Ordering Provider: NAOMI TRAN Report Released Date/Time: Aug 14, 2024 01:44 PM Reporting Lab: [facility] [address] [address] Performing Lab: [address] [address] [place] CBC AND DIFF (AUTO) IMMATURE GRANULOCYTE S/100 LEUKOCYTES IN BLOOD BY AUTOMATED COUNT 0.3 0.0 - 0.7 08/20 Specimen Type: BLOOD No comment entered. Ordering Provider: NAOMI TRAN Report Released Date/Time: Aug 14, 2024 01:44 PM Reporting Lab: [facility] [address] Performing Lab: [facility] [address] [address] [place] CBC AND DIFF (AUTO) IMMATURE GRANULOCYTE S [#/VOLUME] IN BLOOD 0.02 10*3/u L 0.00 - 0.06 08/20 Specimen Type: BLOOD No comment entered. Ordering Provider: NAOMI TRAN Report Released Date/Time: Aug 14, 2024 01:44 PM Reporting Lab: [facility] [address] [address] Performing Lab: [facility] [address] [address] [place] CBC AND DIFF (AUTO) NRBC % 0.0 0.0 - 0.0 08/20 Specimen Type: BLOOD No comment entered. Ordering Provider: NAOMI TRAN Report Released Date/Time: Aug 14, 2024 01:44 PM Reporting Lab: [facility] [address] [address] Performing Lab: [facility] [address] [address] [place] CBC AND DIFF (AUTO) NRBC, ABS 0.00 10*3/u L 0.00 - 0.00 08/20 Specimen Type: BLOOD No comment entered. Ordering Provider: NAOMI TRAN Report Released Date/Time: Aug 14, 2024 01:44 PM Reporting Lab: [facility] [address] [address] Performing Lab: [facility] [address] [address] [place] BASIC METABOLIC PANEL (non-fast ing) UREA NITROGEN [MASS/VOLUM E] IN SERUM OR PLASMA 19 mg/dL 7 - 25 04/23 Specimen Type: SERUM No comment entered. Ordering Provider: NAOMI TRAN Report Released Date/Time: Apr 23, 2024 01:16 PM Reporting Lab: [facility] [address] [address] Performing Lab: [facility] [address] [facility] [address] [place] BASIC METABOLIC PANEL (non-fast ing) GLUCOSE [MASS/VOLUM E] IN SERUM OR PLASMA 80 mg/dL 65 - 100 04/23 Specimen Type: SERUM No comment entered. Ordering Provider: NAOMI TRAN Report Released Date/Time: Apr 23, 2024 01:16 PM Reporting Lab: [facility] [address] [facility] [address] Performing Lab: [facility] [address] [facility] [address] [employer] BASIC METABOLIC PANEL (non-fast ing) SODIUM [MOLES/VOLU ME] IN SERUM OR PLASMA 141 mmol/L 135 - 145 04/23 Specimen Type: SERUM No comment entered. Ordering Provider: NAOMI TRAN Report Released Date/Time: Apr 23, 2024 01:16 PM Reporting Lab: [facility] [address] [facility] [address] Performing Lab: [facility] [address] [facility] [address] [place] BASIC METABOLIC PANEL (non-fast ing) POTASSIUM [MOLES/VOLU ME] IN SERUM OR PLASMA 3.8 mmol/L 3.5 - 5.0 04/23 Specimen Type: SERUM No comment entered. Ordering Provider: NAOMI TRAN Report Released Date/Time: Apr 23, 2024 01:16 PM Reporting Lab: [facility] [address] [facility] [address] Performing Lab: [facility] [address] [facility] [address] [place] [place] BASIC METABOLIC PANEL (non-fast ing) CHLORIDE [MOLES/VOLU ME] IN SERUM OR PLASMA 106 mmol/L 100 - 110 04/23 Specimen Type: SERUM No comment entered. Ordering Provider: NAOMI TRAN Report Released Date/Time: Apr 23, 2024 01:16 PM Reporting Lab: [facility] [address] [facility] [address] Performing Lab: [place] [address] [address] [place] [place] BASIC METABOLIC PANEL (non-fast ing) CARBON DIOXIDE, TOTAL [MOLES/VOLU ME] IN SERUM OR PLASMA 24 meq/L 20 - 30 04/23 Specimen Type: SERUM No comment entered. Ordering Provider: NAOMI TRAN Report Released Date/Time: Apr 23, 2024 01:16 PM Reporting Lab: [address] [address] Performing Lab: [address] [address] [place] [place] BASIC METABOLIC PANEL (non-fast ing) CREATININE [MASS/VOLUM E] IN SERUM OR PLASMA 0.94 mg/dL 0.50 - 1.40 04/23 Specimen Type: SERUM No comment entered. Ordering Provider: NAOMI TRAN Report Released Date/Time: Apr 23, 2024 01:16 PM Reporting Lab: [address] [address] Performing Lab: [address] [address] [place] BASIC METABOLIC PANEL (non-fast ing) GLOMERULAR FILTRATION RATE/1.73 SQ M.PREDICTED [VOLUME RATE/AREA] IN SERUM, PLASMA OR BLOOD BY CREATININE- BASED FORMULA (CKD-EPI 2020) 82 mL/min 60 04/23 Specimen Type: SERUM No comment entered. Ordering Provider: NAOMI TRAN Report Released Date/Time: Apr 23, 2024 01:16 PM Reporting Lab: [address] [address] Performing Lab: [address] [address] [place] CBC AND DIFF (AUTO) LEUKOCYTES [#/VOLUME] IN BLOOD BY AUTOMATED COUNT 8.80 10*3/u L 4.50 - 11.00 04/23 Specimen Type: BLOOD No comment entered. Ordering Provider: NAOMI TRAN Report Released Date/Time: Apr 23, 2024 01:16 PM Reporting Lab: [address] [place] [address] Performing Lab: [facility] [address] [address] [place] CBC AND DIFF (AUTO) ERYTHROCYTE S [#/VOLUME] IN BLOOD BY AUTOMATED COUNT 4.62 10*6/u L 4.23 - 5.66 04/23 Specimen Type: BLOOD No comment entered. Ordering Provider: NAOMI TRAN Report Released Date/Time: Apr 23, 2024 01:16 PM Reporting Lab: [facility] [address] [address] Performing Lab: [address] [address] [place] CBC AND DIFF (AUTO) HEMOGLOBIN [MASS/VOLUM E] IN BLOOD 14.1 g/dL 12.8 - 17 04/23 Specimen Type: BLOOD No comment entered. Ordering Provider: NAOMI TRAN Report Released Date/Time: Apr 23, 2024 01:16 PM Reporting Lab: [facility] [address] [address] Performing Lab: [facility] [address] [address] [place] CBC AND DIFF (AUTO) HEMATOCRIT [VOLUME FRACTION] OF BLOOD BY AUTOMATED COUNT 42.2 39.2 - 50.4 04/23 Specimen Type: BLOOD No comment entered. Ordering Provider: NAOMI TRAN Report Released Date/Time: Apr 23, 2024 01:16 PM Reporting Lab: [facility] [address] [address] Performing Lab: [facility] [address] [address] [place] CBC AND DIFF (AUTO) MCV [ENTITIC VOLUME] BY AUTOMATED COUNT 91.3 fL 82 - 99 04/23 Specimen Type: BLOOD No comment entered. Ordering Provider: NAOMI TRAN Report Released Date/Time: Apr 23, 2024 01:16 PM Reporting Lab: [facility] [address] [address] Performing Lab: [place] [facility] [place] [facility] [address] [facility] [address] [place] CBC AND DIFF (AUTO) MCHC [MASS/VOLUM E] BY AUTOMATED COUNT 33.4 g/dL 30.8 - 35.1 04/23 Specimen Type: BLOOD No comment entered. Ordering Provider: NAOMI TRAN Report Released Date/Time: Apr 23, 2024 01:16 PM Reporting Lab: [facility] [place] [facility] [address] [facility] [address] Performing Lab: [place] [facility] [facility] [address] [facility] [address] [place] CBC AND DIFF (AUTO) PLATELETS [#/VOLUME] IN BLOOD BY AUTOMATED COUNT 185 10*3/u L 140 - 360 04/23 Specimen Type: BLOOD No comment entered. Ordering Provider: NAOMI TRAN Report Released Date/Time: Apr 23, 2024 01:16 PM Reporting Lab: [facility]ITALTRN [place] [facility] [address] [facility] [address] Performing Lab: [facility]ITAL[facility] [place] [facility] [address] [facility] [address] [place] CBC AND DIFF (AUTO) ERYTHROCYTE DISTRIBUTIO N WIDTH [RATIO] BY AUTOMATED COUNT 12.8 12.0 - 16.0 04/23 Specimen Type: BLOOD No comment entered. Ordering Provider: NAOMI TRAN Report Released Date/Time: Apr 23, 2024 01:16 PM Reporting Lab: [facility] [place] [facility] [address] [facility] [address] Performing Lab: [facility] [place] [facility] [address] [facility] [address] [place] CBC AND DIFF (AUTO) MONOCYTES [#/VOLUME] IN BLOOD BY AUTOMATED COUNT 1.18 10*3/u L 0.30 - 1.10 04/23 H Specimen Type: BLOOD No comment entered. Ordering Provider: NAOMI TRAN Report Released Date/Time: Apr 23, 2024 01:16 PM Reporting Lab: [facility]ITALRW[facility]ITALTRN [facility]ITALUS[facility] [address] [facility] [address] Performing Lab: [place] [facility] [facility] [address] [facility] [address] [place] CBC AND DIFF (AUTO) MCH [ENTITIC MASS] BY AUTOMATED COUNT 30.5 pg 26.2 - 32.6 04/23 Specimen Type: BLOOD No comment entered. Ordering Provider: NAOMI TRAN Report Released Date/Time: Apr 23, 2024 01:16 PM Reporting Lab: [place] [facility] [place] [facility] [address] [facility] [address] Performing Lab: [place] [facility] [place] [address] [address] [place] CBC AND DIFF (AUTO) NEUTROPHILS /100 LEUKOCYTES IN BLOOD BY AUTOMATED COUNT 61.0 43.7 - 75.8 04/23 Specimen Type: BLOOD No comment entered. Ordering Provider: NAOMI TRAN Report Released Date/Time: Apr 23, 2024 01:16 PM Reporting Lab: [facility] [place] [address] [address] Performing Lab: [facility] [place] [address] [address] [place] CBC AND DIFF (AUTO) LYMPHOCYTES /100 LEUKOCYTES IN BLOOD BY AUTOMATED COUNT 22.8 14.0 - 42.3 04/23 Specimen Type: BLOOD No comment entered. Ordering Provider: NAOMI TRAN Report Released Date/Time: Apr 23, 2024 01:16 PM Reporting Lab: [facility]ITALTRN [place] [address] [address] Performing Lab: [facility] [place] [address] [address] [place] CBC AND DIFF (AUTO) MONOCYTES/1 00 LEUKOCYTES IN BLOOD BY AUTOMATED COUNT 13.4 5.1 - 13.7 04/23 Specimen Type: BLOOD No comment entered. Ordering Provider: NAOMI TRAN Report Released Date/Time: Apr 23, 2024 01:16 PM Reporting Lab: [facility] [place] [address] [address] Performing Lab: [facility] [place] [address] [address] [place] CBC AND DIFF (AUTO) EOSINOPHILS /100 LEUKOCYTES IN BLOOD BY AUTOMATED COUNT 1.5 0.4 - 6.8 04/23 Specimen Type: BLOOD No comment entered. Ordering Provider: NAOMI TRAN Report Released Date/Time: Apr 23, 2024 01:16 PM Reporting Lab: [facility]ITALRL WSTRN [facility]ITALUSETS [address] [address] Performing Lab: [place] [facility] [facility] [facility]ITALUSETS [address] [address] [place] CBC AND DIFF (AUTO) BASOPHILS/1 00 LEUKOCYTES IN BLOOD BY AUTOMATED COUNT 0.8 0.1 - 2.0 04/23 Specimen Type: BLOOD No comment entered. Ordering Provider: NAOMI TRAN Report Released Date/Time: Apr 23, 2024 01:16 PM Reporting Lab: [facility]ITALRW[facility]PITALTRN [address] [address] Performing Lab: [facility]ITALRST. VINCENT'[facility] CHILTONN [facility] HOSPITALUSE[address] [address] [place] CBC AND DIFF (AUTO) NEUTROPHILS [#/VOLUME] IN BLOOD BY AUTOMATED COUNT 5.37 10*3/u L 2.20 - 7.60 04/23 Specimen Type: BLOOD No comment entered. Ordering Provider: NAOMI TRAN Report Released Date/Time: Apr 23, 2024 01:16 PM Reporting Lab: [facility]ITALRWALK[facility]OSPITALTRN [facility]ITALUSE[address] [address] Performing Lab: [facility]OSPITALRL TRN [facility] HOSPITALUSETS [address] [address] [place] CBC AND DIFF (AUTO) LYMPHOCYTES [#/VOLUME] IN BLOOD BY AUTOMATED COUNT 2.01 10*3/u L 1.00 - 3.20 04/23 Specimen Type: BLOOD No comment entered. Ordering Provider: NAOMI TRAN Report Released Date/Time: Apr 23, 2024 01:16 PM Reporting Lab: [facility]ITALRL WSTRN [facility]OSPITALUSETS [address] [address] Performing Lab: [facility]ITALRW[facility]PITALTRN [facility]PITALUSE[address] [address] [place] CBC AND DIFF (AUTO) EOSINOPHILS [#/VOLUME] IN BLOOD BY AUTOMATED COUNT 0.13 10*3/u L 0.03 - 0.44 04/23 Specimen Type: BLOOD No comment entered. Ordering Provider: NAOMI TRAN Report Released Date/Time: Apr 23, 2024 01:16 PM Reporting Lab: [facility] [address] [address] Performing Lab: [facility] [address] [address] [place] CBC AND DIFF (AUTO) BASOPHILS [#/VOLUME] IN BLOOD BY AUTOMATED COUNT 0.07 10*3/u L 0.01 - 0.13 04/23 Specimen Type: BLOOD No comment entered. Ordering Provider: NAOMI TRAN Report Released Date/Time: Apr 23, 2024 01:16 PM Reporting Lab: [address] [address] Performing Lab: [address] [address] [place] CBC AND DIFF (AUTO) IMMATURE GRANULOCYTE S/100 LEUKOCYTES IN BLOOD BY AUTOMATED COUNT 0.5 0.0 - 0.7 04/23 Specimen Type: BLOOD No comment entered. Ordering Provider: NAOMI TRAN Report Released Date/Time: Apr 23, 2024 01:16 PM Reporting Lab: [address] [address] Performing Lab: [address] [address] [place] CBC AND DIFF (AUTO) IMMATURE GRANULOCYTE S [#/VOLUME] IN BLOOD 0.04 10*3/u L 0.00 - 0.06 04/23 Specimen Type: BLOOD No comment entered. Ordering Provider: NAOMI TRAN Report Released Date/Time: Apr 23, 2024 01:16 PM Reporting Lab: [address] [address] Performing Lab: [address] [address] [place] CBC AND DIFF (AUTO) NRBC % 0.0 0.0 - 0.0 04/23 Specimen Type: BLOOD No comment entered. Ordering Provider: NAOMI TRAN Report Released Date/Time: Apr 23, 2024 01:16 PM Reporting Lab: [facility] [address] [facility] [address] Performing Lab: [address] [address] [facility] CBC AND DIFF (AUTO) NRBC, ABS 0.00 10*3/u L 0.00 - 0.00 04/23 Specimen Type: BLOOD No comment entered. Ordering Provider: NAOMI TRAN Report Released Date/Time: Apr 23, 2024 01:16 PM Reporting Lab: [facility] [address] [facility] [address] Performing Lab: [address] [address] [facility] Vital Signs Combined list of inpatient and outpatient Vital Signs from Department of Defense and Veterans Affairs, ranging from 12 months to all on record, depending upon the facility. Vital Sign Value Date Comments Source SYSTOLIC BLOOD PRESSURE 101 11/14/2024 10:13:22 [place] DIASTOLIC BLOOD PRESSURE 65 11/14/2024 10:13:22 [place] PULSE OXIMETRY 97 11/14/2024 10:13:22 [facility] 202 11/14/2024 10:13[facility] BMI 29 kg/m2 11/14/2024 10:13:22 [facility] TEMPERATURE 97 11/14/2024 10:13:22 [facility] 87 11/14/2024 10:13[facility]22 [facility] 18 11/14/2024 10:13:22 [facility] SYSTOLIC BLOOD PRESSURE 120 10/18/2024 14:19:14 [facility] DIASTOLIC BLOOD PRESSURE 69 10/18/2024 14:19:14 [facility] PULSE OXIMETRY 97 10/18/2024 14:19:14 [facility] [place] WEIGHT 206 10/18/2024 14:19:14 [facility] BMI 30 kg/m2 10/18/2024 14:19:14 [facility] PULSE 77 10/18/2024 14:19:14 [facility] RESPIRATION 18 10/18/2024 14:19:14 [facility] SYSTOLIC BLOOD PRESSURE 108 08/24/2024 09:12:31 [facility] DIASTOLIC BLOOD PRESSURE 71 08/24/2024 09:12:31 [facility] PULSE OXIMETRY 95 08/24/2024 09:12:31 [facility] [place] WEIGHT 200 08/24/2024 09:12:31 [facility] BMI 29 kg/m2 08/24/2024 09:12:31 [facility] TEMPERATURE 97.6 08/24/2024 09:12:31 [facility] PULSE 72 08/24/2024 09:12:31 [facility] RESPIRATION 18 08/24/2024 09:12:31 [facility] SYSTOLIC BLOOD PRESSURE 120 04/23/2024 13:12:01 [facility] DIASTOLIC BLOOD PRESSURE 74 04/23/2024 13:12:01 [facility] PULSE OXIMETRY 97 04/23/2024 13:12:01 [facility] [place] WEIGHT 197 04/23/2024 13:12:01 [facility] BMI 28 kg/m2 04/23/2024 13:12:01 [facility] TEMPERATURE 97 04/23/2024 13:12:01 [facility] PULSE 89 04/23/2024 13:12:01 [facility] RESPIRATION 18 04/23/2024 13:12:01 [facility] SYSTOLIC BLOOD PRESSURE 109 01/23/2024 08:55:57 [facility] DIASTOLIC BLOOD PRESSURE 67 01/23/2024 08:55:57 [facility] PULSE OXIMETRY 97 01/23/2024 08:55:57 [facility] [place] WEIGHT 191.8 01/23/2024 08:55:57 [facility] BMI 28 kg/m2 01/23/2024 08:55:57 [facility] TEMPERATURE 97.5 01/23/2024 08:55:57 [facility] PULSE 86 01/23/2024 08:55:57 [facility] Encounters Combined list of: 1) Encounters from [facility] facilities going backup to the last 18 months, not all [facility] inpatient encounters are included; 2) Encounters from the [facility] facilities going backup to 280 months. Location Location Details Encounter Type Encounter Number Reason For Visit Attending Provider ADM Date DC Date Status Disposition Source [facility] OFFICE O/P EST MOD 30-39 MIN [id number] Diagnos is: ICD-10- CM E03.9 Hypothy roidism , unspeci fied ALBA TRAN N 06/24 [facility] Encounter [id number] 08/17 [facility] Out[facility] Encounter [id number] 08/17 [facility] Out[facility] Encounter [id number] 09/02 [facility] Out[facility] Encounter [id number] 11/16 [facility] Out[facility] Encounter [id number] 11/16 [facility] OFFICE O/P EST LOW 20 MIN [id number] Diagnos is: ICD-10- CM L20.89 Other atopic dermati tis ALBA TRAN N 11/17 [facility] COMPRE OPH EXAM EST PT 1/> [id number] Diagnos is: ICD-10- CM L71.8 Other rosacea CORINNE HOWARD 12/08 [facility] FIT SPECTACLES MULTIFOCAL [id number] Diagnos is: ICD-10- CM Z46.0 Encount er for fit/adj st of spectac les and contact lenses AWILDA RAUSCH 12/16 [facility] NRPSYC TST EVAL PHYS/[place] [id number] Diagnos is: ICD-10- CM F01.B0 Vascula r dementi a, moderat e, without beh/psy ch/mood /anx MALINOFSKY ,JANIA 12/16 [facility] FIT SPECTACLES MULTIFOCAL [id number] Diagnos is: ICD-10- CM Z46.0 Encount er for fit/adj st of spectac les and contact lenses CORINNE HOWARD 12/16 [facility] Out[facility] Encounter [id number] 12/20 [facility] Out[facility] Encounter [id number] 01/04 [facility] COGNITIVE TEST BY HC PRO [id number] Diagnos is: ICD-10- CM F01.B0 Vascula r dementi a, moderat e, without beh/psy ch/mood /anx DEANNA,S ARAH 01/12 [facility] Outpatient Encounter [id number] 01/22 [facility] OFFICE O/P EST MOD 30 MIN [id number] Diagnos is: ICD-10- CM F01.B0 Vascula r dementi a, moderat e, without beh/psy ch/mood /anx ALBA TRAN 01/22 [place] [facility] SPEECH/HEA RING THERAPY [id number] Diagnos is: ICD-10- CM F01.B0 Vascula r dementi a, moderat e, without beh/psy ch/mood /anx DEANNA,S ARAH 01/26 [facility] COGNITIVE TEST BY HC PRO [id number] Diagnos is: ICD-10- CM F01.B0 Vascula r dementi a, moderat e, without beh/psy ch/mood /anx DEANNA,S ARAH 02/05 [facility] THER IVNTJ EA ADDL 15 MIN [id number] Diagnos is: ICD-10- CM F01.B0 Vascula r dementi a, moderat e, without beh/psy ch/mood /anx DEANNA,S ARAH 02/12 [facility] HEARING AID REPAIR/MOD IFYING [id number] Diagnos is: ICD-10- CM Z46.1 Encount er for fitting and adjustm ent of hearing aid SENIORLEONARDO Vicente 02/20 [facility] Outpatient Encounter [id number] 04/20 [facility] [place] OFF[facility] O/P EST LOW 20 MIN [id number] Diagnos is: ICD-10- CM K59.1 Functio nal ALBA Christianson 04/23 [place] [facility] Outpatient Encounter [id number] 07/17 [facility] Out[facility] Encounter [id number] 07/24 [facility] [place] OFFICE O/P EST MOD 30 MIN [id number] Diagnos is: ICD-10- CM F01.B0 Vascula r dementi a, moderat e, without beh/psy ch/mood /anx ALBA TRAN N 08/24 [facility] Outpatient Encounter [id number] 10/18 [facility] O/P EST LOW 20 MIN [id number] Diagnos is: ICD-10- CM 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 [id number] Diagnos is: ICD-10- CM L20.9 Atopic dermati tis, unspeci fied ALBA TRAN N 11/14 [facility] Outpatient Encounter [id number] 12/17 [place] [facility] Social History Combined list of available smoking, tobacco, and other social history from Department of Defense and Veterans Affairs facilities. Social History Type Response Date Comment [facility] Tobacco smoking status [facility] VA-TOBACCO NEVER USED 04/23/2024 [facility] History of tobacco use FL-TOBACCO QUIT 15 YRS OR MORE 05/12/2023 [facility] History of tobacco use FL-TOBACCO FORMER USER 06/03/2022 [facility] History of tobacco use FL-TOBACCO FORMER USER 04/15/2021 [facility] History of tobacco use FL-TOBACCO FORMER USER 02/19/2020 [facility] History of tobacco use FL-TOBACCO QUIT 15 YRS OR MORE 02/01/2019 [facility] History of tobacco use QUIT TOBACCO USE > 7 YEARS AGO 01/17/2018 stopped smoking 1970 [facility] History of tobacco use QUIT TOBACCO USE > 7 YEARS AGO 11/16/2016 stopped smoking in 1970 [facility] History of tobacco use QUIT TOBACCO USE > 7 YEARS AGO 10/28/2015 [facility] History of tobacco use QUIT TOBACCO USE > 7 YEARS AGO 10/15/2011 Pt. quit smoking 15 years ago. [facility] Plan of Care List of future care activities from Department of [facility] Affairs facilities. Additional future care activities may be listed in the Assessment and Plan section. Date/Time Care Activity Care Activity Detail Facili ty 12/20/2024 AMBULATORY - MEDICINE [facility] [place] [facility] 03/22/2025 AMBULATORY - MEDICINE AMBULATORY - MEDICI NE [facility] 11/14/2024 Consult Order DERMATOLOGY/[facility] (OUTPT) Cons [employer] [facility]
--- OUTSIDE RECORDS SUMMARY | 2024-12-17 18:27 | XMS_ITS ---
Author Name [facility] [place] Organization [place] Address [address] [place] [address] Care Team Providers Care Retail Services Professional Name Role Phone NAOMI TRAN Primary Care [...] Conte's Name Patient's Relationship to Policy Conte [facility] ([facility]) MEDICARE ADVANTAGE [facility] ([facility]) Oct 24, 2014 [id number] PATIENT Selected Encounter This section includes the information on record at [place] for the Encounter. Date/Time Encounter Type Encounter Description Reason Provider Source Feb 06, 2024 08:00 AM COGNITIVE TEST BY [facility] SPEECH-LANGUAGE PATHOLOGY ICD-10-CM F01.B0 Vascular dementia, moderate, without beh/psych/mood /anx MIKE HUERTA Elly Encounter Template Text not used by [facility] Assessments - Encounter Diagnoses This section includes the primary and secondary diagnoses documented for the Encounter. Date/Time Primary/Secondary Diagnosis Diagnosis Name Provider Source Feb 06, 2024 09:16 AM PRIMARY Vascular dementia, moderate, without beh/psych/mood/ anx MIKE HUERTA [facility] Plan of Treatment: Future Appointments (+ 6 months) and Future Tests (+/- 45 days) The Plan of Treatment section includes future care activities for the patient from all [place] [facility]. This section includes future appointments and future orders which are active, pending or scheduled. Future Appointments This section includes appointments that were scheduled to occur 6 months from the date of the Encounter, up to a maximum of 20 appointments. The data comes from all [place] treatment facilities. Appointment Date/Time Appointment Type Appointme nt Facility Name Feb 13, 2024 08:00 AM [facility] Feb 21, 2024 08:30 AM [facility]UL[facility] Apr 23, 2024 01:00 PM AMBULATORY - MEDICINE [facility] Lab Results: +/- 30 days of the encounter This section includes the Chemistry and Hematology Lab Results on record with [place] for the patient. Radiology Reports and Pathology Reports are provided separately, in subsequent sections. Lab Results This section contains the Chemistry/Hematology Results that were resulted 30 days before or 30 daysafter the date of the Encounter. Date/Time Source Result Type Result - Unit Interpretation Reference Range Comment Jan 16, 2024 08:11 AM [place] CALCIUM Specimen Type: SERUM No comment entered. Ordering Provider: NAOMI TRAN Report Released Date/Time: Jan 13, 2024 03:46 PM Reporting Lab: [address] [address] Performing Lab: [address] [address] CALCIUM 8.3 mg/dL L 8.5-10.2 Jan 16, 2024 08:11 AM [place] URIC ACID Specimen Type: SERUM No comment entered. Ordering Provider: NAOMI TRAN Report Released Date/Time: Jan 13, 2024 03:46 PM Reporting Lab: [address] [address] Performing Lab: [address] [address] URIC ACID 5.7 mg/dL 3.5-7.2 Jan 16, 2024 08:11 AM [place] HEMOGLOBIN A1C PANEL Specimen Type: BLOOD Comment: [...] Jan 13, 2024 03:46 PM Reporting Lab: [address] [address] Performing Lab: [address] [address] HEMOGLOBIN A1C 5.5 4.0-5.6 Jan 16, 2024 08:11 AM [place] TSH Specimen Type: SERUM No comment entered. Ordering Provider: NAOMI TRAN Report Released Date/Time: Jan 13, 2024 03:46 PM Reporting Lab: [address] [address] Performing Lab: [address] [address] TSH 1.39 u[IU]/mL 0.35-5.00 Jan 16, 2024 08:11 AM [place] URINALYSIS Specimen Type: URINE Comment: If Glucose = >500 and Ketones are positive, please alert the Physician. Ordering Provider: NAOMI TRAN Report Released Date/Time: Jan 13, 2024 03:46 PM Reporting Lab: [address] [address] Performing Lab: [address] [address] UA COLOR Light-Yellow Yellow UA APPEARANCE Clear Clear UA GLUCOSE NEGATIVE mg/dL Negative UA KETONES NEGATIVE mg/dL Negative UA BLOOD NEGATIVE mg/dL Negative UA PROTEIN NEGATIVE mg/dL Negative UA NITRITE NEGATIVE mg/dL Negative UA BILIRUBIN NEGATIVE mg/dL Negative UA SPECIFIC GRAVITY 1.022 1.016-1.022 UA pH 7.0 5.0-9.0 UA UROBILINOGEN <2.0 mg/dL <2.0 UA LEUKOCYTE NEGATIVE Negative Jan 16, 2024 08:11 AM [place] FERRITIN Specimen Type: SERUM No comment entered. Ordering Provider: NAOMI TRAN Report Released Date/Time: Jan 13, 2024 03:46 PM Reporting Lab: [address] [address] Performing Lab: [address] [address] FERRITIN 30 ng/mL 20-300 Jan 16, 2024 08:11 AM [place] VITAMIN D (25-OH) Specimen Type: SERUM No comment entered. Ordering Provider: NAOMI TRAN Report Released Date/Time: Jan 13, 2024 03:46 PM Reporting Lab: [address] [address] Performing Lab: [address] [address] VITAMIN D (25-OH) 20 ng/mL 20-50 Jan 16, 2024 08:11 AM [place] CBC AND DIFF (AUTO) Specimen Type: BLOOD No comment entered. Ordering Provider: NAOMI TRAN Report Released Date/Time: Jan 13, 2024 03:46 PM Reporting Lab: [address] [address] Performing Lab: [address] [address] WBC 7.52 10*3/uL 4.50-11.00 RBC 4.68 10*6/uL 4.23-5.66 HGB 14.2 g/dL 12.8-17 HCT 43.0 39.2-50.4 MCV 91.9 fL 82-99 MCHC 33.0 g/dL 30.8-35.1 PLT 200 10*3/uL 140-360 RDW-CV 12.8 12.0-16.0 [place], Abs 0.93 10*3/uL 0.30-1.10 MCH 30.3 pg 26.2-32.6 Neut % 59.3 43.7-75.8 Lymph % 25.5 14.0-42.3 [place] % 12.4 5.1-13.7 Eos % 1.3 0.4-6.8 Baso % 1.2 0.1-2.0 Neut, Abs 4.46 10*3/uL 2.20-7.60 Lymph, Abs 1.92 10*3/uL 1.00-3.20 Eos, Abs 0.10 10*3/uL 0.03-0.44 Baso, Abs 0.09 10*3/uL 0.01-0.13 Immature Gran % 0.3 0.0-0.7 Immature Gran, Abs 0.02 10*3/uL 0.00-0.06 Jan 16, 2024 08:11 AM [place] BASIC METABOLIC PANEL (fasting) Specime n Type: SERUM No comment entered. Ordering Provider: NAOMI TRAN Report Released Date/Time: Jan 13, 2024 03:46 PM Reporting Lab: [address] [phone] Performing Lab: [address] [address] UREA NITROGEN 15 mg/dL 7-25 GLUCOSE 95 mg/dL 65-100 SODIUM 139 mmol/L 135-145 POTASSIUM 4.1 mmol/L 3.5-5.0 CHLORIDE 103 mmol/L 100-110 CO2 27 meq/L 20-30 CREATININE, Serum 0.86 mg/dL 0.50-1.40 eGFR(CKD-EPI 2020) 88 mL/min >60 Jan 16, 2024 08:11 AM [place] LIVER FUNCTION Specimen Type: SERUM No comment entered. Ordering Provider: NAOMI TRAN Report Released Date/Time: Jan 13, 2024 03:46 PM Reporting Lab: [address] [address] Performing Lab: [address] [address] PROTEIN,TOTAL 6.9 g/dL 6.0-8.3 ALBUMIN 3.7 g/dL 3.5-5.0 ALKALINE PHOSPHATASE 70 U/L 40-150 AST 12 U/L 5-34 ALT 11 U/L BILIRUBIN, TOTAL 0.5 mg/dL 0.2-1.2 Jan 16, 2024 08:11 AM [place] LIPID PANEL FASTING Specimen Type: SERUM No comment entered. Ordering Provider: NAOMI TRAN Report Released Date/Time: Jan 13, 2024 03:46 PM Reporting Lab: [facility] [address] [address] Performing Lab: [facility] [address] [address] CHOLESTEROL 184 mg/dL TRIGLYCERIDE 129 mg/dL 0-150 LDL calculated 104 mg/dL 0-129 CHOL/HDL 3.4 HDL CHOLESTEROL 54 mg/dL 40-60 Encounter Notes: All associated encounter notes This section contains the clinical notes associated to the Encounter. Date/Time Encounter Note(s) Provider Source Feb 06, 2024 08:38 AM SPEECH PATHOLOGY N OTE: LOCAL TITLE: SPEECH PATHOLOGY PROGRESS NOTE STANDARD TITLE: SPEECH PATHOLOGY NOTE DATE OF NOTE: FEB 06, 2024@08:38 ENTRY DATE: FEB 06, 2024@08:38:49 AUTHOR: MIKE HUERTA EXP COSIGNER: URGENCY: STATUS: [...] Chronic ethmoidal sinusitis 12. PCP: Luli Mendoza [facility] 13. Hypertension (SNOMED CT [id number]) 14. Other and unspecified noninfectious gastroenteritis and [...] word-finding ability of adolescents and adults was completed. A: [place] presents with cognitive communication deficits characterized by word finding challenges and short term recall difficulties. P: follow up as scheduled /guevara/ MIKE HUERTA M.S.,[facility] MODEL SPEECH-LANGUAGE PATHOLOGIST Signed: 02/13/2024 07:04 MIKE HUERTA [facility]
--- OUTSIDE RECORDS SUMMARY | 2024-12-17 18:27 | XMS_ITS | Encounter Summary ---
Author Name [facility] [place] [facility] [place] Organization [place] of [place] Address [address] [place] [address] Care Team Providers Care Medical Surgery Nurse Name Role Phone NAOMI TRAN Primary Care [...] Name Patient's Relationship to Policy Conte [facility] ([facility]) MEDICARE ADVANTAGE [facility] ([facility]) Oct 24, 2014 [id number] PATIENT Selected Encounter This section includes the information on record at [place] for the Encounter. Date/Time Encounter Type Encounter Description Reason Provider Source Feb 21, 2024 08:30 AM HEARING AID REPAIR/MODIFYIN G AUDIOLOGY ICD-10-CM Z46.1 Encounter for fitting and adjustment of hearing aid NUPUR TURK Elly Encounter Template Text not used by [place] Assessments - Encounter Diagnoses This section includes the primary and secondary diagnoses documented for the Encounter. Date/Time Primary/Secondary Diagnosis Diagnosis Name Provider Source Feb 21, 2024 11:25 AM PRIMARY Encounter for fitting and adjustment of hearing aid NUPUR TURK [facility] Feb 21, 2024 11:25 AM SECONDARY Sensorineural hearing loss, bilateral [facility]UPUR UTRK [facility] Plan of Treatment: Future Appointments (+ 6 months) and Future Tests (+/- 45 days) The Plan of Treatment section includes future care activities for the patient from all [place] treatmentfacilities. This section includes future appointments and future orders which are active, pending or scheduled. Future Appointments This section includes appointments that were scheduled to occur 6 months from the date of the Encounter, up to a maximum of 20 appointments. The data comes from all [place] treatment facilities. Appointment Date/Time Appointment Type Appointme nt Facility Name Apr 23, 2024 01:00 PM AMBULATORY - MEDICINE [facility] Encounter Notes: All associated encounter notes This section contains the clinical notes associated to the Encounter. Date/Time Encounter Note(s) Provider Source Feb 21, 2024 07:52 AM AUDIOLOGY E & M NO TE: LOCAL TITLE: AUDIOLOGY CLINIC STANDARD TITLE: AUDIOLOGY E & M NOTE DATE OF NOTE: FEB 21, 2024@07:52 ENTRY DATE: FEB 21, 2024@07:52:53 AUTHOR: NUPUR TURK EXP COSIGNER: URGENCY: STATUS: COMPLETED Dx CODE: Z46.1-Encounter for Fitting/Adjusting Hearing Aid(s); H90.3- Sensorineural Hearing Loss, Bilateral APPOINTMENT TYPE: Hearing Aid Check HISTORY/BACKGROUND: was seen for a hearing aid follow-up appointment, accompanied by his . He was fit on 01/18/23 with RANGEL Laguna. He scheduled today's appointment to have his hearing aids checked. He notes that he has only worn them intermittently since he got them, but CRA OFFICER Leora Lopez and Dr. Little recommended he start wearing them more consistently. He notes difficulties keep the hearing aids in his ears. He feels the domes are too big and he has difficulties manipulating the retention wires. Fit of the right aid was good, but left floriculturist appeared short. Changed the left floriculturist from size 2 to size 3 50 gain. Replaced the right size 2 50 gain floriculturist as well due to it being bent out of shape. Changed from 7mm open domes to 6mm open domes. Retention lines were removed and microphone covers were replaced. [place] reported improved fit and comfort with these adjustments. Proper insertion/removal, cleaning, and wax guard use was reviewed. and his reported good understanding of all topics covered. PLAN/RECOMMENDATION(S): 1. Follow up as needed. Patient Education Education provided on the following topics: Hearing aids Education provided to: P Response to Education: VU Rios Patient P Family F Significant Other SO Verbalizes Understanding VU Returns Demonstration RD Performs Independently PI Lacks Comprehension LC Refused Education RE Not Applicable NA /guevara/ NAREN BAILON, CCC-A STAFF [employer] [employer] ATTENDANT Signed: 02/21/2024 11:25 NUPUR TURK [facility]
--- OUTSIDE RECORDS SUMMARY | 2024-12-17 18:27 | XMS_ITS | Encounter Summary ---
Author Name [facility] [place] Organization [facility] [place] [facility] [place] Address [address] [place] [address] Care Team Providers Care Automobile Mechanic Supervisor Name Role Phone TRAN, NAOMI Primary Care Provider Unavailabl e Insurance Providers: [...] Name Patient's Relationship to Policy Conte [facility] ([facility]) MEDICARE ADVANTAGE [facility] ([facility]) Oct 24, 2014 [id number] PATIENT Selected Encounter This section includes the information on record at [place] for the Encounter. Date/Time Encounter Type Encounter Description Reason Pro vider Source Dec 20, 2023 09:23 AM Outpatient Encounter ADMIN PAT ACTIVTIES (MASNONCT) IHE Encounter Template Text not used by [place] Plan of Treatment: Future Appointments (+ 6 months) and Future Tests (+/- 45 days) The Plan of Treatment section includes future care activities for the patient from all [facility] treatment[facility]ilities. This section includes future appointments and future orders which are active, pending or scheduled. Future Appointments This section includes appointments that were scheduled to occur 6 months from the date of the Encounter, up to a maximum of 20 appointments. The data comes from all [place] treatment facilities. Appointment Date/Time Appointment Type Appointme nt Facility Name Jan 13, 2024 09:00 AM AMBULATORY - [facility] [place] [facility] Jan 23, 2024 09:00 AM [facility] - [facility] [place] Jan 27, 2024 08:00 AM [facility] [place] [facility] Feb 06, 2024 08:00 AM AMBULATORY - [facility] MEDICIN [facility] [place] [facility] Feb 13, 2024 08:00 AM AMBULATORY - [facility] MEDICIN [facility] [place] [facility] Feb 21, 2024 08:30 AM AMBULATORY - [facility]AB MEDICIN [facility] [place] [facility] Apr 23, 2024 01:00 PM AMBULATORY - [place]IC[place] Lab Results: +/- 30 days of the encounter This section includes the Chemistry and Hematology Lab Results on record with [place] for the patient. Radiology Reports and Pathology Reports are provided separately, in subsequent sections. Lab Results This section contains the Chemistry/Hematology Results that were resulted 30 days before or 30 daysafter the date of the Encounter. Date/Time Source Result Type Result - Unit Interpretation Reference Range Comment Jan 16, 2024 08:11 AM [place] CALCIUM Specimen Type: SERUM No comment entered. Ordering Provider: NAOMI TRAN Report Released Date/Time: Jan 13, 2024 03:46 PM Reporting [facility]: [facility] [place] [address] Performing Lab[facility] [place] [address] [address] CALCIUM 8.3 mg/dL L 8.5-10.2 Jan 16, 2024 08:11 AM [place] URIC ACID Specimen Type: SERUM No comment entered. Ordering Provider: NAOMI TRAN Report Released Date/Time: Jan 13, 2024 03:46 PM Reporting Lab: [facility] [place] [address] [address] Performing Lab: [facility] [address] [address] URIC ACID 5.7 mg/dL 3.5-7.2 Jan 16, 2024 08:11 AM [place] HEMOGLOBIN A1C PANEL Specimen Type: BLOOD Comment: [...] Jan 13, 2024 03:46 PM Reporting Lab: [address] [address] Performing Lab: [address] [address] HEMOGLOBIN A1C 5.5 4.0-5.6 Jan 16, 2024 08:11 AM [place] TSH Specimen Type: SERUM No comment entered. Ordering Provider: NAOMI TRAN Report Released Date/Time: Jan 13, 2024 03:46 PM Reporting Lab: [address] [address] Performing Lab: [address] [address] TSH 1.39 u[IU]/mL 0.35-5.00 Jan 16, 2024 08:11 AM [place] URINALYSIS Specimen Type: URINE Comment: If Glucose = >500 and Ketones are positive, please alert the Physician. Ordering Provider: NAOMI TRAN Report Released Date/Time: Jan 13, 2024 03:46 PM Reporting Lab: [address] [address] Performing Lab: [address] [address] UA COLOR Light-Yellow Yellow UA APPEARANCE Clear Clear UA GLUCOSE NEGATIVE mg/dL Negative UA KETONES NEGATIVE mg/dL Negative UA BLOOD NEGATIVE mg/dL Negative UA PROTEIN NEGATIVE mg/dL Negative UA NITRITE NEGATIVE mg/dL Negative UA BILIRUBIN NEGATIVE mg/dL Negative UA SPECIFIC GRAVITY 1.022 1.016-1.022 UA pH 7.0 5.0-9.0 UA UROBILINOGEN <2.0 mg/dL <2.0 UA LEUKOCYTE NEGATIVE Negative Jan 16, 2024 08:11 AM [place] FERRITIN Specimen Type: SERUM No comment entered. Ordering Provider: NAOMI TRAN Report Released Date/Time: Jan 13, 2024 03:46 PM Reporting Lab: [address] [address] Performing Lab: [address] [address] FERRITIN 30 ng/mL 20-300 Jan 16, 2024 08:11 AM [place] CBC AND DIFF (AUTO) Specimen Type: BLOOD No comment entered. Ordering Provider: NAOMI TRAN Report Released Date/Time: Jan 13, 2024 03:46 PM Reporting Lab: [address] [address] Performing Lab: [address] [address] WBC 7.52 10*3/uL 4.50-11.00 RBC 4.68 10*6/uL 4.23-5.66 HGB 14.2 g/dL 12.8-17 HCT 43.0 39.2-50.4 MCV 91.9 fL 82-99 MCHC 33.0 g/dL 30.8-35.1 PLT 200 10*3/uL 140-360 RDW-CV 12.8 12.0-16.0 [place], Abs 0.93 10*3/uL 0.30-1.10 MCH 30.3 pg 26.2-32.6 Neut % 59.3 43.7-75.8 Lymph % 25.5 14.0-42.3 [place] % 12.4 5.1-13.7 Eos % 1.3 0.4-6.8 Baso % 1.2 0.1-2.0 Neut, Abs 4.46 10*3/uL 2.20-7.60 Lymph, Abs 1.92 10*3/uL 1.00-3.20 Eos, Abs 0.10 10*3/uL 0.03-0.44 Baso, Abs 0.09 10*3/uL 0.01-0.13 Immature Gran % 0.3 0.0-0.7 Immature Gran, Abs 0.02 10*3/uL 0.00-0.06 Jan 16, 2024 08:11 AM [place] VITAMIN D (25-OH) Specimen Type: SERUM No comment entered. Ordering Provider: NAOMI TRAN Report Released Date/Time: Jan 13, 2024 03:46 PM Reporting Lab: [address] [address] Performing Lab: [address] [address] VITAMIN D (25-OH) 20 ng/mL 20-50 Jan 16, 2024 08:11 AM [place] LIPID PANEL FASTING Specimen Type: SERUM No comment entered. Ordering Provider: NAOMI TRAN Report Released Date/Time: Jan 13, 2024 03:46 PM Reporting Lab: [address] [address] Performing Lab: [address] [address] CHOLESTEROL 184 mg/dL TRIGLYCERIDE 129 mg/dL 0-150 LDL calculated 104 mg/dL 0-129 CHOL/HDL 3.4 HDL CHOLESTEROL 54 mg/dL 40-60 Jan 16, 2024 08:11 AM [place] BASIC METABOLIC PANEL (fasting) Specime n Type: SERUM No comment entered. Ordering Provider: NAOMI TRAN Report Released Date/Time: Jan 13, 2024 03:46 PM Reporting Lab: [address] [address] Performing Lab: [address] [address] UREA NITROGEN 15 mg/dL 7-25 GLUCOSE 95 mg/dL 65-100 SODIUM 139 mmol/L 135-145 POTASSIUM 4.1 mmol/L 3.5-5.0 CHLORIDE 103 mmol/L 100-110 CO2 27 meq/L 20-30 CREATININE, Serum 0.86 mg/dL 0.50-1.40 eGFR(CKD-EPI 2020) 88 mL/min >60 Jan 16, 2024 08:11 AM [place] LIVER FUNCTION Specimen Type: SERUM No comment entered. Ordering Provider: NAMOI TRAN Report Released Date/Time: Jan 13, 2024 03:46 PM Reporting Lab: [facility] [address] [facility] [address] Performing Lab: [facility] [address] [facility] [address] PROTEIN,TOTAL 6.9 g/dL 6.0-8.3 ALBUMIN 3.7 g/dL 3.5-5.0 ALKALINE PHOSPHATASE 70 U/L 40-150 AST 12 U/L 5-34 ALT 11 U/L BILIRUBIN, TOTAL 0.5 mg/dL 0.2-1.2 Encounter Notes: All associated encounter notes This section contains the clinical notes associated to the Encounter. Date/Time Encounter Note(s) Provider Source Dec 20, 2023 09:23 AM ADMINISTRATIVE NOT E: LOCAL TITLE: CCC: SCHEDULING ADMINISTRATION STANDARD TITLE: ADMINISTRATIVE NOTE DATE OF NOTE: DEC 20, 2023@09:23 ENTRY DATE: DEC 20, 2023@09:23:32 AUTHOR: DANIEL HANEY COSIGNER: URGENCY: STATUS: COMPLETED CCC: SCHEDULING ADMINISTRATION Has ADDENDA Type of Call: (Scheduling or Administrative) Demographics: are validated and correct Caller is: SPOUSE Call back number [phone] Reason for call: Tonalea's spouse Luli requesting a call back from [facility] regarding a consult for speech therapy. Please advise /guevara/ DANIEL MARKS [facility] MSA Signed: 12/20/2023 09:25 Receipt Acknowledged By: 12/26/2023 08:48 /guevara/ Irina Hernández RN Registered Nurse (RN) 12/22/2023 08:35 /guevara/ PERRY FREIRE LPN LICENSED PRACTICAL NURSE 12/21/2023 ADDENDUM STATUS: COMPLETED Spoke with and his , states he had a Neuropsych eval last week with NICOLAS, states she suggested speech therapy, will reach out to Neuropsych. Teams message sent. /guevara/ Irina Hernández RN Registered Nurse (RN) Signed: 12/21/2023 16:04 DANIEL HANEY [facility]
--- OUTSIDE RECORDS SUMMARY | 2024-12-17 18:28 | XMS_ITS | Encounter Summary ---
Author Name [facility] [place] Organization [place] Address [address] [place] [id number] Care Team Providers Care Park Interpretive Specialist Name Role Phone NAOMI TRAN Primary Care [...] Name Patient's Relationship to Policy Conte [facility] ([facility]) MEDICARE ADVANTAGE [facility] ([facility]) Oct 24, 2014 [id number] PATIENT Selected Encounter This section includes the information on record at [place] for the Encounter. Date/Time Encounter Type Encounter Description Reason Provider Source Nov 14, 2024 10:00 AM OFFICE O/P EST LOW 20 MIN PRIMARY CARE/MEDICINE ICD-10-CM L20.9 Atopic dermatitis, unspecified NAOMI TRAN Encounter Template Text not used by [place] Assessments - Encounter Diagnoses This section includes the primary and secondary diagnoses documented for the Encounter. Date/Time Primary/Secondary Diagnosis Diagnosis Name Provider Source Nov 14, 2024 10:18 AM PRIMARY Atopic dermatitis, unspecified NAOMI TRAN Plan of Treatment: Future Appointments (+ 6 months) and Future Tests (+/- 45 days) The Plan of Treatment section includes future care activities for the patient from all [place] treatment[facility]. This section includes future appointments and future orders which are active, pending or scheduled. Future Appointments This section includes appointments that were scheduled to occur 6 months from the date of the Encounter, up to a maximum of 20 appointments. The data comes from all [place] treatment facilities. Appointment Date/Time Appointment Type Appointme nt Facility Name Dec 20, 2024 10:30 AM AMBULATORY [place]ICINE [place] [facility] [place] [facility] March 22, 2025 09:00 AM AMBULATORY - MEDICINE [facility] Active, Pending, and Scheduled Orders This section includes a listing of several types of active, pending, and scheduled orders, including clinic medications orders, diagnostic test orders, procedure orders and consult orders; where the start date of the order is 45 days before the date of the Encounter or 45 days after the date of theEncounter. The data comes from all [facility]. Test Date/Time Test Type Test Details Facility Name Nov 14, 2024 10:14 AM Consult Order DERMATOLOG Y/NH[facility] (OUTPT) Cons [facility] [employer] [facility] Vital Signs: All taken on the encounter date This section contains inpatient and outpatient Vital Signs collected on the date of the Encounter. Date/Time Temperature Pulse Blood Pressure Respiratory Rate SP02 Pain Height Weight Body Mass Index Source Nov 14, 2024 10:13 AM 97 87 101/65 18 97 202 29 [facility] Social History: Smoking Status (Most current) and Tobacco Use (All prior to encounter date) This section includes the most current, and the historical, smoking and tobacco- related health factors from the [place] facility where the Encounter took place. Current Smoking Status This section includes the most current smoking, or tobacco-related health factor, from the [place] facility where the Encounter took place. Date/Time Current Smoking Status Comment Facil ity Apr 23, 2024 01:00 PM VA-TOBACCO NEVER USED [facility] Tobacco Use History This section includes a history of the smoking, or tobacco-related health factors, that were collected on or before the date of the Encounter. The data comes from the [place] facility where the Encounter took place. Date/Time Smoking Status/Tobacco Use Comment F acility May 12, 2023 10:00 AM [place]-TOBACCO FORMER USER [facility] May 12, 2023 10:00 AM [place]-TOBACCO QUIT 15 YRS OR MORE [facility] Jun 03, 2022 02:00 PM VA-TOBACCO FORMER USER [facility] Jun 03, 2022 02:00 PM VA-TOBACCO QUIT 15 YRS OR MORE [facility] Apr 15, 2021 10:00 AM VA-TOBACCO FORMER USER [facility] Apr 15, 2021 10:00 AM VA-TOBACCO QUIT 15 YRS OR MORE [facility] Feb 19, 2020 01:24 PM VA-TOBACCO FORMER USER [facility] Feb 19, 2020 01:24 PM VA-TOBACCO QUIT 15 YRS OR MORE [facility] Feb 01, 2019 11:11 AM VA-TOBACCO FORMER USER [facility] Feb 01, 2019 11:11 AM VA-TOBACCO QUIT 15 YRS OR MORE [facility] Jan 17, 2018 09:03 AM QUIT TOBACCO USE > 7 YEARS AGO stopped smoking 1970 [facility] Nov 16, 2016 08:51 AM QUIT TOBACCO USE > 7 YEARS AGO stopped smoking in 1970 [facility] Oct 28, 2015 03:03 PM QUIT TOBACCO USE > 7 YEARS AGO [facility] Oct 15, 2011 08:40 AM QUIT TOBACCO USE > 7 YEARS AGO Pt. quit smoking 15 years ago. [facility] Encounter Notes: All associated encounter notes This section contains the clinical notes associated to the Encounter. Date/Time Encounter Note(s) Provider Source Nov 14, 2024 10:09 AM PREVENTIVE MEDICIN E NURSING NOTE: LOCAL TITLE: CLINICAL REMINDERS/NURSING STANDARD TITLE: PREVENTIVE MEDICINE NURSING NOTE DATE OF NOTE: NOV 14, 2024@10:09 ENTRY DATE: NOV 14, 2024@10:10 AUTHOR: PERRY FREIRE COSIGNER: URGENCY: STATUS: COMPLETED Advance Directive Screen MH AD: Patient has an up-to-date Advance Directive at an outside, non-[facility] facility and was asked to forward a copy to his/her clinician. Depression Screening: Perform PHQ-2 A PHQ-2 screen was performed. The score was 0 which is a negative screen for depression. Over the past two weeks, how often have you been bothered by the following problems? 1. Little interest or pleasure in doing things Not at all 2. Feeling down, depressed, or hopeless Not at all Td / Tdap Immunization: The patient declines to receive the recommended dose of Td/Tdap vaccine. Immunization: TD(ADULT) UNSPECIFIED FORMULATION Refusal Reason: PATIENT DECISION Patient refuses all immunization(s) in the Td group Date Documented: 11/14/24 10:11 Alcohol Use Screen (AUDIT-C): Alcohol Screen: SCREEN FOR ALCOHOL (AUDIT-C) An alcohol screening test (AUDIT-C) was negative (score=0). 1. How often did you have a drink containing alcohol in the past year? Consider a drink to be a 12 ounce can or bottle of regular beer, 8 ounces of malt liquor, a 5 ounce glass of table wine, or a 1.5 ounce shot of liquor (like scotch, gin, or vodka). Never 2. How many drinks containing alcohol did you have on a typical day when you were drinking in the past year? Response not required due to responses to other questions. 3. How often did you have six or more drinks on one occasion in the past year? Response not required due to responses to other questions. COVID-19 Immunization: Refused Moderna Monovalent COVID-19 vaccine Immunization: COVID-19 (MODERNA), MRNA, LNP-S, PF, 50 MCG/0.5 ML (AGES 12+ YEARS) Refusal Reason: PATIENT DECISION Patient refuses all immunization(s) in the COVID-19 group Date Documented: 11/14/24 10:11 Sexual Orientation: The patient thinks of their sexual orientation as: Straight or Heterosexual RSV Immunization: Respiratory Syncytial Virus (RSV) Vaccine: Refused EyeEm (RSV vaccine, adjuvanted, Arexvy). Immunization: RSV, RECOMBINANT, PROTEIN SUBUNIT RSVPREF3, ADJUVANT RECONSTITUTED, 0.5 ML, PF Refusal Reason: PATIENT DECISION Patient refuses all immunization(s) in the RSV group Date Documented: 11/14/24 10:12 /guevara/ PERRY FREIRE LPN LICENSED PRACTICAL NURSE Signed: 11/14/2024 10:13 PERRY FREIRE [facility] Nov 14, 2024 10:06 AM PHYSICIAN ASSISTAN T NOTE: LOCAL TITLE: PA NOTE STANDARD TITLE: PHYSICIAN DRAWING SUPERVISOR NOTE DATE OF NOTE: NOV 14, 2024@10:06 ENTRY DATE: NOV 14, 2024@10:06:56 AUTHOR: NAOMI TRANIGNER: URGENCY: STATUS: COMPLETED S - rash persists lower legs itchy torso and arms all the top agents i have provided have minimalist benefit O - INTEG: macul-papul lesions legs and arms; erythematous base non-exudative A/P - Atopical Derm - may cont Steroidsal Agents and Hydroxyzine (both help - but no curative) - CON: DERM RTC prn Medication Reconciliation: Outpatient: Has the patient been [...] whether with a VA or non-VA provider. Alcohol Use Screen (AUDIT-C): Alcohol Screen: SCREEN FOR ALCOHOL (AUDIT-C) An alcohol screening test (AUDIT-C) was negative (score=0). 1. How often did you have a drink containing alcohol in the past year? Consider a drink to be a 12 ounce can or bottle of regular beer, 8 ounces of malt liquor, a 5 ounce glass of table wine, or a 1.5 ounce shot of liquor (like scotch, gin, or vodka). Never 2. How many drinks containing alcohol did you have on a typical day when you were drinking in the past year? Response not required due to responses to other questions. 3. How often did you have six or more drinks on one occasion in the past year? Response not required due to responses to other questions. Depression Screening: Perform PHQ-2 A PHQ-2 screen was performed. The score was 0 which is a negative screen for depression. Over the past two weeks, how often have you been bothered by the following problems? 1. Little interest or pleasure in doing things Not at all 2. Feeling down, depressed, or hopeless Not at all /guevara/ NAOMI TRAN PA-C STAFF PHYSICIAN DRAWING SUPERVISOR Signed: 11/14/2024 10:18 NAOMI TRAN
--- OUTSIDE RECORDS SUMMARY | 2024-12-17 18:28 | XMS_ITS ---
Author Name [facility] [place] Address [address] [place] [address] Care Team Providers Care Office Associate Name Role Phone TRAN, NAOMI Primary Care [...] Patient's Relationship to Policy Conte [facility] ([place]) MEDICARE ADVANTAGE [facility] ([place]) Oct 24, 2014 [id number] PATIENT Selected Encounter This section includes the information on record at [place] for the Encounter. Date/Time Encounter Type Encounter Description Reason Pro vider Source Jan 05, 2024 10:19 PM Outpatient Encounter ADMIN PAT ACTIVTIES (MASNONCT) IHE Encounter Template Text not used by [place] Plan of Treatment: Future Appointments (+ 6 [...] 20 appointments. The data comes from all [place] treatment facilities. Appointment Date/Time Appointment Type Appointme nt Facility Name Jan 13, 2024 09:00 AM [facility] [place] [facility] Jan 23, 2024 09:00 AM [facility] [place]IC[place] [facility] [place] Jan 27, 2024 08:00 AM AMBULATORY - [facility] [place] [facility] Feb 06, 2024 08:00 AM AMBULATORY [facility] [place] [facility] Feb 13, 2024 08:00 AM AMBULATORY - [facility] [place] [facility] Feb 21, 2024 08:30 AM AMBULATORY - [facility] [place] [facility] Apr 23, 2024 01:00 PM [facility]ATORY - [facility]IC[place] [facility] [place] Lab Results: +/- 30 days of the encounter This section includes the Chemistry and Hematology Lab Results on record with [place] for the patient. Radiology Reports and Pathology Reports are provided separately, in subsequent sections. Lab Results This section contains the Chemistry/Hematology Results that were resulted 30 days before or 30 daysafter the date of the Encounter. Date/Time Source Result Type Result - Unit Interpretation Reference Range Comment Jan 16, 2024 08:11 AM [facility] CALCIUM Specimen Type: SERUM No comment entered. Ordering Provider: NAOMI TRAN Report Released Date/Time: Jan 13, 2024 03:46 PM Reporting [facility] [address] Performing Lab: [facility] [place] [address] [address] CALCIUM 8.3 mg/dL L 8.5-10.2 Jan 16, 2024 08:11 AM [facility] URIC ACID Specimen Type: SERUM No comment entered. Ordering Provider: NAOMI TRAN Report Released Date/Time: Jan 13, 2024 03:46 PM Reporting Lab: [facility] [address] [address] Performing Lab: [facility] [address] [address] URIC ACID 5.7 mg/dL 3.5-7.2 Jan 16, 2024 08:11 AM [facility] HEMOGLOBIN A1C PANEL Specimen Type: BLOOD Comment: [...] Jan 13, 2024 03:46 PM Reporting Lab: [address] [address] Performing Lab: [address] [address] HEMOGLOBIN A1C 5.5 4.0-5.6 Jan 16, 2024 08:11 AM [facility] URINALYSIS Specimen Type: URINE Comment: If Glucose = >500 and Ketones are positive, please alert the Physician. Ordering Provider: NAOMI TRAN Report Released Date/Time: Jan 13, 2024 03:46 PM Reporting Lab: [address] [address] Performing Lab: [address] [address] UA COLOR Light-Yellow Yellow UA APPEARANCE Clear Clear UA GLUCOSE NEGATIVE mg/dL Negative UA KETONES NEGATIVE mg/dL Negative UA BLOOD NEGATIVE mg/dL Negative UA PROTEIN NEGATIVE mg/dL Negative UA NITRITE NEGATIVE mg/dL Negative UA BILIRUBIN NEGATIVE mg/dL Negative UA SPECIFIC GRAVITY 1.022 1.016-1.022 UA pH 7.0 5.0-9.0 UA UROBILINOGEN <2.0 mg/dL <2.0 UA LEUKOCYTE NEGATIVE Negative Jan 16, 2024 08:11 AM [facility] TSH Specimen Type: SERUM No comment entered. Ordering Provider: NAOMI TRAN Report Released Date/Time: Jan 13, 2024 03:46 PM Reporting Lab: [address] [address] Performing Lab: [address] [address] TSH 1.39 u[IU]/mL 0.35-5.00 Jan 16, 2024 08:11 AM [facility] VITAMIN D (25-OH) Specimen Type: SERUM No comment entered. Ordering Provider: NAOMI TRAN Report Released Date/Time: Jan 13, 2024 03:46 PM Reporting Lab: [address] [address] Performing Lab: [address] [address] VITAMIN D (25-OH) 20 ng/mL 20-50 Jan 16, 2024 08:11 AM [facility] FERRITIN Specimen Type: SERUM No comment entered. Ordering Provider: NAOMI TRAN Report Released Date/Time: Jan 13, 2024 03:46 PM Reporting Lab: [address] [address] Performing Lab: [address] [address] FERRITIN 30 ng/mL 20-300 Jan 16, 2024 08:11 AM [facility] CBC AND DIFF (AUTO) Specimen Type: BLOOD No comment entered. Ordering Provider: NAOMI TRAN Report Released Date/Time: Jan 13, 2024 03:46 PM Reporting Lab: [address] [address] Performing Lab: [address] [address] WBC 7.52 10*3/uL 4.50-11.00 RBC 4.68 10*6/uL 4.23-5.66 HGB 14.2 g/dL 12.8-17 HCT 43.0 39.2-50.4 MCV 91.9 fL 82-99 MCHC 33.0 g/dL 30.8-35.1 PLT 200 10*3/uL 140-360 RDW-CV 12.8 12.0-16.0 Callaway, Abs 0.93 10*3/uL 0.30-1.10 MCH 30.3 pg 26.2-32.6 Neut % 59.3 43.7-75.8 Lymph % 25.5 14.0-42.3 Callaway % 12.4 5.1-13.7 Eos % 1.3 0.4-6.8 Baso % 1.2 0.1-2.0 Neut, Abs 4.46 10*3/uL 2.20-7.60 Lymph, Abs 1.92 10*3/uL 1.00-3.20 Eos, Abs 0.10 10*3/uL 0.03-0.44 Baso, Abs 0.09 10*3/uL 0.01-0.13 Immature Gran % 0.3 0.0-0.7 Immature Gran, Abs 0.02 10*3/uL 0.00-0.06 Jan 16, 2024 08:11 AM [facility] BASIC METABOLIC PANEL (fasting) Specime n Type: SERUM No comment entered. Ordering Provider: NAOMI TRAN Report Released Date/Time: Jan 13, 2024 03:46 PM Reporting Lab: [address] [address] Performing Lab: [address] [address] UREA NITROGEN 15 mg/dL 7-25 GLUCOSE 95 mg/dL 65-100 SODIUM 139 mmol/L 135-145 POTASSIUM 4.1 mmol/L 3.5-5.0 CHLORIDE 103 mmol/L 100-110 CO2 27 meq/L 20-30 CREATININE, Serum 0.86 mg/dL 0.50-1.40 eGFR(CKD-EPI 2020) 88 mL/min >60 Jan 16, 2024 08:11 AM [facility] LIPID PANEL FASTING Specimen Type: SERUM No comment entered. Ordering Provider: NAOMI TRAN Report Released Date/Time: Jan 13, 2024 03:46 PM Reporting Lab: [address] [address] Performing Lab: [address] [address] CHOLESTEROL 184 mg/dL TRIGLYCERIDE 129 mg/dL 0-150 LDL calculated 104 mg/dL 0-129 CHOL/HDL 3.4 HDL CHOLESTEROL 54 mg/dL 40-60 Jan 16, 2024 08:11 AM [facility] LIVER FUNCTION Specimen Type: SERUM No comment entered. Ordering Provider: NAOMI TRAN Report Released Date/Time: Jan 13, 2024 03:46 PM Reporting Lab: [facility] [address] [facility] [address] Performing Lab: [facility] [address] [facility] [address] PROTEIN,TOTAL 6.9 g/dL 6.0-8.3 ALBUMIN 3.7 g/dL 3.5-5.0 ALKALINE PHOSPHATASE 70 U/L 40-150 AST 12 U/L 5-34 ALT 11 U/L BILIRUBIN, TOTAL 0.5 mg/dL 0.2-1.2 Encounter Notes: All associated encounter notes This section contains the clinical notes associated to the Encounter. Date/Time Encounter Note(s) Provider Source Jan 05, 2024 10:19 PM PHARMACY NOTE: LOCAL TITLE: PHARMACY CUSTOMER CARE MEDICATION RENEWAL STANDARD TITLE: PHARMACY NOTE DATE OF NOTE: JAN 05, 2024@22:19 ENTRY DATE: JAN 05, 2024@22:19:45 AUTHOR: NATALIE CONNOLLY EXP COSIGNER: URGENCY: STATUS: COMPLETED Date: Dec Division: [facility] referred by Pharmacy Call Center for medication renewal: Non-controlled/maintenan ce medication Medications requested: [id number] CETIRIZINE HCL 10MG TAB Defer to primary care provider To be mailed . Please review and renew if appropriate. *This note was generated by [facility] Pharmacy Customer Care. If you have any questions or need assistance, do not contact this author. Please refer all questions to your local, on-site pharmacy departments. /guevara/ NATALIE CONNOLLY [facility] Bread Supervisor, [place]/Pharmacy Customer Care Signed: 01/05/2024 22:20 Receipt Acknowledged By: 01/06/2024 09:10 /guevara/ Irina Hernández RN Registered Nurse (RN) 01/06/2024 08:30 /guevara/ NAOMI TRAN PA-C STAFF PHYSICIAN MILLING OPERATOR NATALIE CONNOLLY [facility]
--- OUTSIDE RECORDS SUMMARY | 2024-12-17 18:28 | XMS_ITS | Encounter Summary ---
Author Name [facility] [place] Address [address] [place] [id number] Care Team Providers Care Manager Of Information Name Role Phone NAOMI TRAN Primary Care [...] Name Patient's Relationship to Policy Conte [facility] ([facility]) MEDICARE ADVANTAGE [facility] ([facility]) Oct 24, 2014 [id number] PATIENT Selected Encounter This section includes the information on record at [place] for the Encounter. Date/Time Encounter Type Encounter Description Reason Provider Source Aug 24, 2024 09:00 AM OFFICE O/P EST MOD 30 MIN PRIMARY CARE/MEDICINE ICD-10-CM F01.B0 Vascular dementia, moderate, without beh/psych/mood/ anx NAOMI TRAN Elly Encounter Template Text not used by [place] Assessments - Encounter Diagnoses This section includes the primary and secondary diagnoses documented for the Encounter. Date/Time Primary/Secondary Diagnosis Diagnosis Name Provider Source Aug 24, 2024 09:20 AM PRIMARY Vascular dementia, moderate, without beh/psych/mood/anx NAOMI TRAN Aug 24, 2024 09:20 AM SECONDARY Essential (primary) hypertension NAOMI TRAN Aug 24, 2024 09:20 AM SECONDARY Hypothyroidism, unspecified NAOMI TRAN Plan of Treatment: Future Appointments (+ 6 months) and Future Tests (+/- 45 days) The Plan of Treatment section includes future care activities for the patient from all [place] treatmentfacilities. This section includes future appointments and future orders which are active, pending or scheduled. Future Appointments This section includes appointments that were scheduled to occur 6 months from the date of the Encounter, up to a maximum of 20 appointments. The data comes from all [place] treatment facilities. Appointment Date/Time Appointment Type Appointme nt Facility Name Oct 18, 2024 02:00 PM AMBULATORY - MEDICINE [facility] Nov 14, 2024 10:00 AM AMBULATORY - MEDICINE [facility] Dec 20, 2024 10:30 AM AMBULATORY - MEDICINE [facility] Lab Results: +/- 30 days of the encounter This section includes the Chemistry and Hematology Lab Results on record with [place] for the patient. Radiology Reports and Pathology Reports are provided separately, in subsequent sections. Lab Results This section contains the Chemistry/Hematology Results that were resulted 30 days before or 30 daysafter the date of the Encounter. Date/Time Source Result Type Result - Unit Interpretation Reference Range Comment Aug 20, 2024 08:21 AM [facility] BASIC METABOLIC PANEL (fasting) Specime n Type: SERUM No comment entered. Ordering Provider: NAOMI TRAN Report Released Date/Time: Aug 14, 2024 01:44 PM Reporting Lab: [facility] [address] [facility] [address] Performing Lab: [facility] [address] [facility] [address] UREA NITROGEN 16 mg/dL 7-25 GLUCOSE 95 mg/dL 65-100 SODIUM 140 mmol/L 135-145 POTASSIUM 4.1 mmol/L 3.5-5.0 CHLORIDE 105 mmol/L 100-110 CO2 25 meq/L 20-30 CREATININE, Serum 0.91 mg/dL 0.50-1.40 eGFR(CKD-EPI 2020) 85 mL/min >60 Aug 20, 2024 08:21 AM [facility] LIVER FUNCTION Specimen Type: SERUM No comment entered. Ordering Provider: NAOMI TRAN Report Released Date/Time: Aug 14, 2024 01:44 PM Reporting Lab: [address] [address] Performing Lab: [address] [address] PROTEIN,TOTAL 7.0 g/dL 6.0-8.3 ALBUMIN 3.7 g/dL 3.5-5.0 ALKALINE PHOSPHATASE 71 U/L 40-150 AST 14 U/L 5-34 ALT 11 U/L BILIRUBIN, TOTAL 0.6 mg/dL 0.2-1.2 Aug 20, 2024 08:21 AM [facility] LIPID PANEL FASTING Specimen Type: SERUM No comment entered. Ordering Provider: NAOMI TRAN Report Released Date/Time: Aug 14, 2024 01:44 PM Reporting Lab: [address] [address] Performing Lab: [address] [address] CHOLESTEROL 181 mg/dL TRIGLYCERIDE 104 mg/dL 0-150 LDL calculated 110 mg/dL 0-129 CHOL/HDL 3.6 HDL CHOLESTEROL 50 mg/dL 40-60 Aug 20, 2024 08:21 AM [facility] HEMOGLOBIN A1C PANEL Specimen Type: BLOOD Comment: [...] Aug 14, 2024 01:44 PM Reporting Lab: [address] [address] Performing Lab: [address] [address] HEMOGLOBIN A1C 5.4 4.0-5.6 Aug 20, 2024 08:21 AM [facility] CALCIUM Specimen Type: SERUM No comment entered. Ordering Provider: NAOMI TRAN Report Released Date/Time: Aug 14, 2024 01:44 PM Reporting Lab: [facility] [address] [address] Performing Lab: [facility] [address] [address] CALCIUM 8.3 mg/dL L 8.5-10.2 Aug 20, 2024 08:21 AM [facility] TSH Specimen Type: SERUM No comment entered. Ordering Provider: NAOMI TRAN Report Released Date/Time: Aug 14, 2024 01:44 PM Reporting Lab: [facility] [address] Performing Lab: [facility] [address] TSH 1.23 u[IU]/mL 0.35-5.00 Aug 20, 2024 08:21 AM [facility] URIC ACID Specimen Type: SERUM No comment entered. Ordering Provider: NAOMI TRAN Report Released Date/Time: Aug 14, 2024 01:44 PM Reporting Lab: [facility] [address] Performing [facility]: [facility] [address] URIC ACID 6.5 mg/dL 3.5-7.2 Aug 20, 2024 08:21 AM [facility] CBC AND DIFF (AUTO) Specimen Type: BLOOD No comment entered. Ordering Provider: NAOMI TRAN Report Released Date/Time: Aug 14, 2024 01:44 PM Reporting Lab: [facility] [address] [address] Performing Lab: [facility] [address] [address] WBC 7.71 10*3/uL 4.50-11.00 RBC 4.73 10*6/uL 4.23-5.66 HGB 14.3 g/dL 12.8-17 HCT 43.1 39.2-50.4 MCV 91.1 fL 82-99 MCHC 33.2 g/dL 30.8-35.1 PLT 196 10*3/uL 140-360 RDW-CV 13.0 12.0-16.0 MONO, ABS 0.85 10*3/uL 0.30-1.10 MCH 30.2 pg 26.2-32.6 NEUT % 65.6 43.7-75.8 LYMPH % 20.8 14.0-42.3 MONO % 11.0 5.1-13.7 EOS % 1.3 0.4-6.8 BASO % 1.0 0.1-2.0 NEUT, ABS 5.06 10*3/uL 2.20-7.60 LYMPH, ABS 1.60 10*3/uL 1.00-3.20 EOS, ABS 0.10 10*3/uL 0.03-0.44 BASO, ABS 0.08 10*3/uL 0.01-0.13 IMMATURE GRAN % 0.3 0.0-0.7 IMMATURE GRAN, ABS 0.02 10*3/uL 0.00-0.06 NRBC % 0.0 0.0-0.0 NRBC, ABS 0.00 10*3/uL 0.00-0.00 Vital Signs: All taken on the encounter date This section contains inpatient and outpatient Vital Signs collected on the date of the Encounter. Date/Time Temperature Pulse Blood Pressure Respiratory Rate SP02 Pain Height Weight Body Mass Index Source Aug 24, 2024 09:12 AM 97.6 72 108/71 18 95 200 29 [facility] Social History: Smoking Status (Most current) and Tobacco Use (All prior to encounter date) This section includes the most current, and the historical, smoking and tobacco- related health factors from the [place] facility where the Encounter took place. Current Smoking Status This section includes the most current smoking, or tobacco-related health factor, from the [place] facility where the Encounter took place. Date/Time Current Smoking Status Comment Facil ity Apr 23, 2024 01:00 PM VA-TOBACCO NEVER USED [facility] Tobacco Use History This section includes a history of the smoking, or tobacco-related health factors, that were collected on or before the date of the Encounter. The data comes from the [place] facility where the Encounter took place. Date/Time Smoking Status/Tobacco Use Comment F acility May 12, 2023 10:00 AM VA-TOBACCO FORMER USER [facility] May 12, 2023 10:00 AM [place]-TOBACCO QUIT 15 YRS OR MORE [facility] Jun 03, 2022 02:00 PM VA-TOBACCO FORMER USER [facility] Jun 03, 2022 02:00 PM VA-TOBACCO QUIT 15 YRS OR MORE [facility] Apr 15, 2021 10:00 AM VA-TOBACCO FORMER USER [facility] Apr 15, 2021 10:00 AM VA-TOBACCO QUIT 15 YRS OR MORE [facility] Feb 19, 2020 01:24 PM VA-TOBACCO FORMER USER [facility] Feb 19, 2020 01:24 PM VA-TOBACCO QUIT 15 YRS OR MORE [facility] Feb 01, 2019 11:11 AM VA-TOBACCO FORMER USER [facility] Feb 01, 2019 11:11 AM VA-TOBACCO QUIT 15 YRS OR MORE [facility] Jan 17, 2018 09:03 AM QUIT TOBACCO USE > 7 YEARS AGO stopped smoking 1969 [facility] Nov 16, 2016 08:51 AM QUIT TOBACCO USE > 7 YEARS AGO stopped smoking in 1969 [facility] Oct 28, 2015 03:03 PM QUIT TOBACCO USE > 7 YEARS AGO [facility] Oct 15, 2011 08:40 AM QUIT TOBACCO USE > 7 YEARS AGO Pt. quit smoking 15 years ago. [facility] Encounter Notes: All associated encounter notes This section contains the clinical notes associated to the Encounter. Date/Time Encounter Note(s) Provider Source Aug 24, 2024 09:13 AM PREVENTIVE MEDICIN E NURSING NOTE: LOCAL TITLE: CLINICAL REMINDERS/NURSING STANDARD TITLE: PREVENTIVE MEDICINE NURSING NOTE DATE OF NOTE: AUG 24, 2024@09:13 ENTRY DATE: AUG 24, 2024@09:13:39 AUTHOR: PERRY FREIRE EXP COSIGNER: URGENCY: STATUS: COMPLETED Influenza Immunization: The patient has received the seasonal influenza vaccine for the current season at another location. Documented: INFLUENZA, UNSPECIFIED FORMULATION Historical Date Administered: Jul 2024 Exact date unknown Outside Location: [facility] Information Source: FROM PATIENT'S RECALL Td / Tdap Immunization: The patient declines to receive the recommended dose of Td/Tdap vaccine. Immunization: TD(ADULT) UNSPECIFIED FORMULATION Refusal Reason: PATIENT DECISION Patient refuses all immunization(s) in the Td group Date Documented: 08/24/24 09:14 /guevara/ PERRY FREIRE LPN LICENSED PRACTICAL NURSE Signed: 08/24/2024 09:15 PERRY FREIRE [facility] Aug 24, 2024 09:06 AM PHYSICIAN ASSISTAN T NOTE: LOCAL TITLE: PA NOTE STANDARD TITLE: PHYSICIAN ADVANCED MANUFACTURING CONSULTANT NOTE DATE OF NOTE: AUG 24, 2024@09:06 ENTRY DATE: AUG 24, 2024@09:06:49 AUTHOR: NAOMI TRAN EXP COSIGNER: URGENCY: STATUS: COMPLETED S - routine re-eval O - coop A&Ox3 NAD W-N/H/D HEENT: normocephalic NECK: supple mobile no bruits not tender and no adeno LUNGS: resp full reg unlabored; CTA b/l COR: RRR, no M ABD: soft, not tender no mass, megaly EXT: no LLE or calf tenderness LABS: reviewed w/ pt A/P - 1) HTN - BP Lower Today; is 108/72; HR 86 2) Renal Function Intact - Creat 0.9 and K 4.1 in AUG 16; eGFR 85 - cont Diovan 3) C/V Stable - never [place] 4) Neuro Stable - never CVA/TIA 5) Hypercholesterolemia - LDL 110 in AUG 16 6) On Anti-Coag Therapy?? No - diet, wt 7) Normoglycemic - diet, wt 8) CBC Profile: All WNL 9) Health Maintenance - 10) Stress? - nothing untoward 11) Hypothyoidism - TSH 1.23 in AUG 16 - cont Synthroid 12) Sciatica - Gabapentin Abates 13) Dememtia - Vascu in Etio - cont Donepezil RTC MARCH 17 - labs before Medication Reconciliation: Outpatient: Has the [...] provider. /guevara/ NAOMI TRAN PA-C STAFF PHYSICIAN ADVANCED MANUFACTURING CONSULTANT Signed: 08/24/2024 09:20 NAOMI TRAN
--- OUTSIDE RECORDS SUMMARY | 2024-12-17 18:28 | XMS_ITS ---
Author Name [facility] [place] Address [address] [place] [address] Care Team Providers Care Extern Name Role Phone NAOMI TRAN Primary Care [...] Conte's Name Patient's Relationship to Policy Conte [facility] ([facility]) MEDICARE ADVANTAGE [facility] ([facility]) Oct 24, 2014 [id number] PATIENT Selected Encounter This section includes the information on record at [place] for the Encounter. Date/Time Encounter Type Encounter Description Reason Provider Source Feb 13, 2024 08:00 AM THER IVNTJ EA ADDL 15 MIN SPEECH-LANGUAGE PATHOLOGY ICD-10-CM F01.B0 Vascular dementia, moderate, without beh/psych/mood /anx MIKE HUERTA Encounter Template Text not used by [facility] Assessments - Encounter Diagnoses This section includes the primary and secondary diagnoses documented for the Encounter. Date/Time Primary/Secondary Diagnosis Diagnosis Name Provider Source Feb 13, 2024 08:58 AM PRIMARY Vascular dementia, moderate, without beh/psych/mood/ anx DEANNA,SARAH [facility] Plan of Treatment: Future Appointments (+ 6 months) and Future Tests (+/- 45 days) The Plan of Treatment section includes future care activities for the patient from all [place] treatmentfacilities. This section includes future appointments and future orders which are active, pending or scheduled. Future Appointments This section includes appointments that were scheduled to occur 6 months from the date of the Encounter, up to a maximum of 20 appointments. The data comes from all [place] treatment facilities. Appointment Date/Time Appointment Type Appointme nt Facility Name Feb 21, 2024 08:30 AM AMBULATORY - REHAB MEDICIN E [facility] Apr 23, 2024 01:00 PM AMBULATORY - MEDICINE [facility] Lab Results: +/- 30 [...] Range Comment Jan 16, 2024 08:11 AM [place] CALCIUM Specimen Type: SERUM No comment entered. Ordering Provider: NAOMI TRAN Report Released Date/Time: Jan 13, 2024 03:46 PM Reporting Lab: [facility] [address] [facility] [address] Performing Lab: [address] [address] CALCIUM 8.3 mg/dL L 8.5-10.2 Jan 16, 2024 08:11 AM [place] URIC ACID Specimen Type: SERUM No comment entered. Ordering Provider: NAOMI TRAN Report Released Date/Time: Jan 13, 2024 03:46 PM Reporting Lab: [address] [address] Performing Lab: [address] [address] URIC ACID 5.7 mg/dL 3.5-7.2 Jan 16, 2024 08:11 AM [place] HEMOGLOBIN A1C PANEL Specimen Type: BLOOD Comment: [...] Jan 13, 2024 03:46 PM Reporting Lab: [address] [address] Performing Lab: [address] [address] HEMOGLOBIN A1C 5.5 4.0-5.6 Jan 16, 2024 08:11 AM [place] TSH Specimen Type: SERUM No comment entered. Ordering Provider: NAOMI TRAN Report Released Date/Time: Jan 13, 2024 03:46 PM Reporting Lab: [address] [address] Performing Lab: [address] [address] TSH 1.39 u[IU]/mL 0.35-5.00 Jan 16, 2024 08:11 AM [place] URINALYSIS Specimen Type: URINE Comment: If Glucose = >500 and Ketones are positive, please alert the Physician. Ordering Provider: NAOMI TRAN Report Released Date/Time: Jan 13, 2024 03:46 PM Reporting Lab: [address] [address] Performing Lab: [address] [address] UA COLOR Light-Yellow Yellow UA APPEARANCE Clear Clear UA GLUCOSE NEGATIVE mg/dL Negative UA KETONES NEGATIVE mg/dL Negative UA BLOOD NEGATIVE mg/dL Negative UA PROTEIN NEGATIVE mg/dL Negative UA NITRITE NEGATIVE mg/dL Negative UA BILIRUBIN NEGATIVE mg/dL Negative UA SPECIFIC GRAVITY 1.022 1.016-1.022 UA pH 7.0 5.0-9.0 UA UROBILINOGEN <2.0 mg/dL <2.0 UA LEUKOCYTE NEGATIVE Negative Jan 16, 2024 08:11 AM [place] FERRITIN Specimen Type: SERUM No comment entered. Ordering Provider: NAOMI TRAN Report Released Date/Time: Jan 13, 2024 03:46 PM Reporting Lab: [facility] [address] [address] Performing Lab: [facility] [address] [address] FERRITIN 30 ng/mL 20-300 Jan 16, 2024 08:11 AM [place] VITAMIN D (25-OH) Specimen Type: SERUM No comment entered. Ordering Provider: NAOMI TRAN Report Released Date/Time: Jan 13, 2024 03:46 PM Reporting Lab: [address] [address] Performing Lab: [address] [address] VITAMIN D (25-OH) 20 ng/mL 20-50 Jan 16, 2024 08:11 AM [place] CBC AND DIFF (AUTO) Specimen Type: BLOOD No comment entered. Ordering Provider: NAOMI TRAN Report Released Date/Time: Jan 13, 2024 03:46 PM Reporting Lab: [facility] [address] [address] Performing Lab: [address] [address] WBC 7.52 10*3/uL 4.50-11.00 RBC 4.68 10*6/uL 4.23-5.66 HGB 14.2 g/dL 12.8-17 HCT 43.0 39.2-50.4 MCV 91.9 fL 82-99 MCHC 33.0 g/dL 30.8-35.1 PLT 200 10*3/uL 140-360 RDW-CV 12.8 12.0-16.0 Arroyo, Abs 0.93 10*3/uL 0.30-1.10 MCH 30.3 pg 26.2-32.6 Neut % 59.3 43.7-75.8 Lymph % 25.5 14.0-42.3 Arroyo % 12.4 5.1-13.7 Eos % 1.3 0.4-6.8 Baso % 1.2 0.1-2.0 Neut, Abs 4.46 10*3/uL 2.20-7.60 Lymph, Abs 1.92 10*3/uL 1.00-3.20 Eos, Abs 0.10 10*3/uL 0.03-0.44 Baso, Abs 0.09 10*3/uL 0.01-0.13 Immature Gran % 0.3 0.0-0.7 Immature Gran, Abs 0.02 10*3/uL 0.00-0.06 Jan 16, 2024 08:11 AM [place] BASIC METABOLIC PANEL (fasting) Specime n Type: SERUM No comment entered. Ordering Provider: NAOMI TRAN Report Released Date/Time: Jan 13, 2024 03:46 PM Reporting Lab: [address] [address] Performing Lab: [address] [address] UREA NITROGEN 15 mg/dL 7-25 GLUCOSE 95 mg/dL 65-100 SODIUM 139 mmol/L 135-145 POTASSIUM 4.1 mmol/L 3.5-5.0 CHLORIDE 103 mmol/L 100-110 CO2 27 meq/L 20-30 CREATININE, Serum 0.86 mg/dL 0.50-1.40 eGFR(CKD-EPI 2020) 88 mL/min >60 Jan 16, 2024 08:11 AM [place] LIVER FUNCTION Specimen Type: SERUM No comment entered. Ordering Provider: NAOMI TRAN Report Released Date/Time: Jan 13, 2024 03:46 PM Reporting Lab: [address] [address] Performing Lab: [address] [address] PROTEIN,TOTAL 6.9 g/dL 6.0-8.3 ALBUMIN 3.7 g/dL 3.5-5.0 ALKALINE PHOSPHATASE 70 U/L 40-150 AST 12 U/L 5-34 ALT 11 U/L BILIRUBIN, TOTAL 0.5 mg/dL 0.2-1.2 Jan 16, 2024 08:11 AM [place] LIPID PANEL FASTING Specimen Type: SERUM No comment entered. Ordering Provider: NAOMI TRAN Report Released Date/Time: Jan 13, 2024 03:46 PM Reporting Lab: [facility] [address] [facility] [address] Performing Lab: [facility] [address] [facility] [address] CHOLESTEROL 184 mg/dL TRIGLYCERIDE 129 mg/dL 0-150 LDL calculated 104 mg/dL 0-129 CHOL/HDL 3.4 HDL CHOLESTEROL 54 mg/dL 40-60 Encounter Notes: All associated encounter notes This section contains the clinical notes associated to the Encounter. Date/Time Encounter Note(s) Provider Source Feb 13, 2024 08:16 AM SPEECH PATHOLOGY N OTE: LOCAL TITLE: SPEECH PATHOLOGY PROGRESS NOTE STANDARD TITLE: SPEECH PATHOLOGY NOTE DATE OF NOTE: FEB 13, 2024@08:16 ENTRY DATE: FEB 13, 2024@08:17:37 AUTHOR: MIKE HUERTA COSIGNER: URGENCY: STATUS: COMPLETED S: Pt. is seen F2F today for a diagnostic speech/language therapy. He is accompanied by his spouse and gives his consent for her presence and participation. Active problems - Computerized Problem List is the source for the followin. Vascular dementia without behavioral disturbance 2. Irritable bowel syndrome 3. Cataract 4. Screening for malignant neoplasm of colon done 5. New daily persistent headache 6. History of vaccination 7. Shoulder joint pain 8. Allergy 9. Chest pain 10. Concussion 11. Chronic ethmoidal sinusitis 12. PCP: Luli Mendoza [facility] 13. Hypertension (SNOMED CT [id number]) 14. Other and unspecified noninfectious gastroenteritis and colitis 15. Hypothyroidism 16. Personal History of Colonic Polyps Progress notes reviewed Neuropsych testing report was reviewed Encounter time - 60 minutes O: The following was addressed during this encounter: Reviewed results of testing with and spouse, he performed <1st percentile on a measure of word finding and is unable to recall strategies sufficiently to benefit from them at this time. In addition, states that he is not bothered by his memory loss or word finding challenges. There is a lack of motivation to work on environmental changes as a result of his poor insight. [place]'s spouse discussed her concerns about challenges including asking questions about daily activities repeatedly, operating lawn tractor and whether or not it is safe. We reviewed environmental changes that may be helpful including moving keys and placing daily calendar in a place where can easily see it. A: [place] presents with cognitive communication deficits characterized by word finding challenges and short term recall difficulties. P: follow up as scheduled, will make referral to Dr. Clemons for caregiver support group. /guevara/ MIKE HUERTA M.S.,[facility] AIDE SPEECH-LANGUAGE PATHOLOGIST Signed: 02/16/2024 20:39 MIKE HUERTA [facility]
--- OUTSIDE RECORDS SUMMARY | 2024-12-17 18:28 | XMS_ITS | Encounter Summary ---
Author Name [facility] [place] Address [address] [place] [address] Care Team Providers Care Bottomer Operator Name Role Phone NAOMI TRAN Primary [...] Name Patient's Relationship to Policy Conte [facility] ([facility]) MEDICARE ADVANTAGE [facility] ([facility]) Oct 24, 2014 [id number] PATIENT Selected Encounter This section includes the information on record at [place] for the Encounter. Date/Time Encounter Type Encounter Description Reason Provider Source Oct 18, 2024 02:00 PM OFFICE O/P EST LOW 20 MIN PRIMARY CARE/MEDICINE ICD-10-CM I87.8 Other specified disorders of veins NAOMI TRAN Encounter Template Text not used by [place] Assessments - Encounter Diagnoses This section includes the primary and secondary diagnoses documented for the Encounter. Date/Time Primary/Secondary Diagnosis Diagnosis Name Provider Source Oct 18, 2024 02:25 PM PRIMARY Other specified disorders of veins NAOMI TRAN Plan of Treatment: Future Appointments [...] Date/Time Appointment Type Appointme nt Facility Name Nov 14, 2024 10:00 AM [facility] Dec 20, 2024 10:30 AM AMBULATORY - MEDICINE [place] [facility] [place] March 22, 2025 09:00 AM [facility]ORY - MEDICINE [facility] Active, Pending, and Scheduled Orders This section includes a listing of several types of active, pending, and scheduled orders, including clinic medications orders, diagnostic test orders, procedure orders and consult orders; where the start date of the order is 45 days before the date of the Encounter or 45 days after the date of theEncounter. The data comes from all [facility] facilities. Test Date/Time Test Type Test Details Facility Name Nov 14, 2024 10:14 AM Consult Order DERMATOLOG Y/[facility] (OUTPT) Cons [facility] Supervisor's Choice [facility] Vital Signs: All taken on the encounter date This section contains inpatient and outpatient Vital Signs collected on the date of the Encounter. Date/Time Temperature Pulse Blood Pressure Respiratory Rate SP02 Pain Height Weight Body Mass Index Source Oct 18, 2024 02:19 PM 77 120/69 18 97 206 30 [facility] IELD Social History: Smoking Status (Most current) and Tobacco Use (All prior to encounter date) This section includes the most current, and the historical, smoking and tobacco- related health factors from the [place] facility where the Encounter took place. Current Smoking Status This section includes the most current smoking, or tobacco-related health factor, from the [place] facility where the Encounter took place. Date/Time Current Smoking Status Comment Facil ity Apr 23, 2024 01:00 PM [place]-TOBACCO NEVER USED [facility] Tobacco Use History This section includes a history of the smoking, or tobacco-related health factors, that were collected on or before the date of the Encounter. The data comes from the [place] facility where the Encounter took place. Date/Time Smoking Status/Tobacco Use Comment F acility May 12, 2023 10:00 AM [place]-TOBACCO FORMER USER [facility] May 12, 2023 10:00 AM VA-TOBACCO QUIT 15 YRS OR MORE [facility] Jun 03, 2022 02:00 PM VA-TOBACCO FORMER USER [facility] Jun 03, 2022 02:00 PM VA-TOBACCO QUIT 15 YRS OR MORE [facility] Apr 15, 2021 10:00 AM VA-TOBACCO FORMER USER [facility] Apr 15, 2021 10:00 AM VA-TOBACCO QUIT 15 YRS OR MORE [facility] Feb 19, 2020 01:24 PM VA-TOBACCO FORMER USER [facility] Feb 19, 2020 01:24 PM VA-TOBACCO QUIT 15 YRS OR MORE [facility] Feb 01, 2019 11:11 AM VA-TOBACCO FORMER USER [facility] Feb 01, 2019 11:11 AM VA-TOBACCO QUIT 15 YRS OR MORE [facility] Jan 17, 2018 09:03 AM QUIT TOBACCO USE > 7 YEARS AGO stopped smoking 1969 [facility] Nov 16, 2016 08:51 AM QUIT TOBACCO USE > 7 YEARS AGO stopped smoking in 1969 [facility] Oct 28, 2015 03:03 PM QUIT TOBACCO USE > 7 YEARS AGO [facility] Oct 15, 2011 08:40 AM QUIT TOBACCO USE > 7 YEARS AGO Pt. quit smoking 15 years ago. [facility] Encounter Notes: All associated encounter notes This section contains the clinical notes associated to the Encounter. Date/Time Encounter Note(s) Provider Source Oct 18, 2024 01:59 PM PHYSICIAN ASSISTRAHUL T NOTE: LOCAL TITLE: PA NOTE STANDARD TITLE: PHYSICIAN DEICER INSPECTOR ELECTRIC NOTE DATE OF NOTE: OCT 18, 2024@13:59 ENTRY DATE: OCT 18, 2024@13:59:27 AUTHOR: NAOMI TRAN COSIGNER: URGENCY: STATUS: COMPLETED S - redness and swellinh both lower legs - L side > R side O - EXT: 2+ LLE on L side and 1+ LLE on R side erythematous, scaly +stasis A/P - 1) Vascu Insufficiency 2) Cellulitic in Appearance - start trial Keflex - start Atarax PO and TAC Cr AAA - if no better after a week, then request Vascu Lab - elevation legs - do shower vs. sitting in hot water in a tub (hot water may exacerbate condition) RTC One Week If No Better Medication Reconciliation: Outpatient: Has the patient been [...] provider. /guevara/ NAOMI TRAN PA-C STAFF PHYSICIAN DEICER INSPECTOR ELECTRIC Signed: 10/18/2024 14:25 NAOMI TRAN
--- OUTSIDE RECORDS SUMMARY | 2024-12-17 18:28 | XMS_ITS | Encounter Summary ---
Author Name [facility] [place] Organization [place] Address [address] [place] [id number] Care Team Providers Care Release Of Information Clerk Name Role Phone NAOMI TRAN Primary Care [...] Name Patient's Relationship to Policy Conte [facility] ([place]) MEDICARE ADVANTAGE [facility] ([facility]) Oct 24, 2014 [id number] PATIENT Selected Encounter This section includes the information on record at [place] for the Encounter. Date/Time Encounter Type Encounter Description Reason Pro vider Source IHE Encounter Template Text not used by [place]
--- OUTSIDE RECORDS SUMMARY | 2024-12-17 18:28 | XMS_ITS | Encounter Summary ---
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 Date/Time Encounter Type Encounter Description Reason Pro vider Source Dec 17, 2024 08:34 AM Outpatient Encounter TELEPHONE TRIAGE IHE Encounter Template Text not used by [place] Plan of Treatment: Future Appointments (+ 6 [...] AMBULATORY - MEDICINE [place] C [facility] March 22, 2025 09:00 [facility] Active, Pending, and Scheduled Orders This section includes a listing of several types of active, pending, and scheduled orders, including clinic medications orders, diagnostic test orders, procedure orders and consult orders; where the start date of the order is 45 days before the date of the Encounter or 45 days after the date of theEncounter. The data comes from all [place] treatment facilities. Test Date/Time Test Type Test Details Facility Name Nov 14, 2024 10:14 AM Consult Order DERMATOLOG Y/[facility] (OUTPT) Cons Pediatric Physician's Choice [place] Encounter Notes: All associated encounter notes This section contains the clinical notes associated to the Encounter. Date/Time Encounter Note(s) Provider Source Dec 17, 2024 08:34 AM RN PROGRESS NOTE: LOCAL TITLE: CCC: CLINICAL TRIAGE STANDARD TITLE: RN PROGRESS NOTE DATE OF NOTE: DEC 17, 2024@08:34:41 ENTRY DATE: DEC 17, 2024@08:34:41 AUTHOR: VERO PARKER COSIGNER: URGENCY: STATUS: COMPLETED Patient Demographics Patient Name: DUANE ASCENCIO Patient Primary Address: [address] [place] [address] Patient Primary Phone: [phone] Patient : 1945 Patient Age: 79 Current Location: [address] [place] [address] Call Back Number: [phone] Caller/Recipient Relation to Patient: Other If Other Describe Relation to Patient: Caller Name: LULI ASCENCIO Emergency Contact: LULI ASCENCIO Triage Summary Conducted triage/discussed symptoms Utilized the Triage Tool: Yes Chief Complaint: Head Injury System WHEN: Now Nurse's Recommendation / WHEN: Now System WHERE: Emergency department Nurse's Recommendation / WHERE: ED Other Nursing Plan and Disposition Referred patient to higher level of care Instructed to go to Emergency Room (ER) Advised of Financial Disclaimer: Patient advised that recommendation for care provided during the call does not constitute an approval or authorization for payment by the [place] or its staff. Patient advised to report a community ED visit to the [facility] Office of Community Care at within 72 hours. Other course(s) of action Generated msg to PACT/Provider Provided guidance for worsening symptoms: *Caller/Patient* advised to call facilities [place] Clinical Contact Center or seek immediate medical attention for new or worsening symptoms Nurse Summary Nurse Summary: Kristan's calls reporting Kristan fell x 2 in the last 3-3.5 weeks approximately. and then agree to complete this RN's assessment to the best of their ability. [place] reports a head injury after a fall around 3 weeks approximately along with pertinent positive + negative s/sx detailed at the end of this RN's assessment. reports he tripped over his cat and his the back of his head, denies having sought emergent care. reports he also fell again this past Tuesday and states he got a sudden extremely intense pain to his legs, he never felt like that before. reports he fell sliding off from the recliner into the floor, denies any head injuries and/or additional injuries during that fall. agrees to ED now recommendation and states his will drive him now. confirms she will drive [place] now to [facility]. and requests a f/u F2F appt at his clinic with PCP. and request a call back from PACT. [place] and have no additional questions and/or requests at this time. Alerting PACT Team for review and follow up. - Clinical Contact Center Codes Clinic/Location: V1 CWM PHONE [facility] RN Decision Support System Output: Triage Complete Triage Date: 12/17/2024, 08:25 AM Triage Note: Decision Support Tool Used: [facility] Phone Triage 17 Dec 2024 13:18:31 +0000 [facility] Demographics 79 y/o Male Results CC: Head Injury Software suggested: Now Software suggested follow-up location: Emergency department Values and Measures Duration of CC: 3 Weeks Alerts 1) Mechanism of injury is an important up-triage factor. Be wary of falls from >6 feet, and impacts on a hard surface. For MVA, its no seat belt, and speeds >30 mph. Positive Responses HPI: numbness, in arm, leg or face Negative Responses Denies: HPI: confusion, onset since the injury Denies: HPI: difficulty speaking Denies: HPI: difficulty walking Denies: HPI: difficulty with balance Denies: HPI: head injury, within past 2 days Denies: HPI: headache Denies: HPI: mental status change, abnormal actions or speech Denies: HPI: mental status change, lethargy Denies: HPI: scalp wound, skin penetration Denies: HPI: seizure, since the injury Education Log Based on your responses, you should be treated in the emergency room. Take action: You need to see a provider now or your condition could worsen. Consider calling an ambulance. IMPORTANT: This note was created by [facility] Clinical Contact Center staff. Please do not alert the staff member by adding them as a signer for future communications. Alerts are not monitored by this user. /guevara/ VERO PARKER RN REGISTERED NURSE Signed: 12/17/2024 08:34 Receipt Acknowledged By: 12/17/2024 08:43 /guevara/ Irina Hernández RN Registered Nurse (RN) 12/17/2024 08:52 /guevara/ PERRY FREIRE LPN LICENSED PRACTICAL NURSE [facility]
[2024-12-17 18:42] LABS: Influenza A PCR NEGATIVE (Negative); Influenza B PCR NEGATIVE (Negative); Resp Syncy Virus RNA Qual PCR NEGATIVE (Negative); SARS COV2 PCR INHOUSE NEGATIVE (Negative)
== END 2024-12-17 18:35 | disposition home or self-care (01) ==
PROVIDERS: Physician Assistant Medical; Emergency Provider Emergency Medicine; PCP Family Medicine
DX: R53.1 Weakness (principal); R51.9 Headache, unspecified; F03.90 Unspecified dementia, unspecified severity, without behavioral disturbance, psychotic disturbance, mood disturbance, and anxiety; M54.2 Cervicalgia; R07.89 Other chest pain; Z03.818 Encounter for observation for suspected exposure to other biological agents ruled out; Z79.899 Other long term (current) drug therapy
CPT/HCPCS: 0241U; 36415; 70450; 71046; 72125; 80053; 81003; 85025; 93005; 99284; 99285

== ENCOUNTER → 2024-12-17 10:32 | Outpatient (BNV) | payer MEDICARE, SELFPAY | PROVIDERS: PCP Family Medicine; Visit Provider Internal Medicine | DX: R53.1 Weakness (principal); W19.XXXA Unspecified fall, initial encounter | CPT/HCPCS: 93010 ==

== ENCOUNTER → 2024-12-17 16:18 | Outpatient (BNV) | payer OTHER, MEDICARE, SELFPAY | PROVIDERS: Emergency Provider Emergency Medicine; PCP Family Medicine; Visit Provider Radiology Diagnostic Radiology | DX: R53.1 Weakness (principal); W19.XXXA Unspecified fall, initial encounter | CPT/HCPCS: 70450; 71046; 72125 ==